=== PATIENT | male | born 1950 | race Two or more races ===

== ENCOUNTER → 2018-05-06 | Outpatient (REF) | payer MEDICARE ==
[2018-05-06 13:03] LABS: HEMATOCRIT 45.2 % (42.0-52.0); HEMOGLOBIN 16.2 g/dl (13.5-17.5); MEAN CORPUSCULAR HEMOGLOBIN 32.1 pg (27.0-33.0); MEAN CORPUSCULAR HGB CONC 35.8 g/dl (32.0-36.5); MEAN CORPUSCULAR VOLUME 89.5 fl (80.0-96.0); PLATELET COUNT, AUTOMATED 155 10^3/uL (150-450); RED BLOOD COUNT 5.05 10^6/uL (4.30-6.10); RED CELL DISTRIBUTION WIDTH 12.6 % (11.5-14.5); WHITE BLOOD COUNT 4.1 10^3/uL (4.0-10.0)
[2018-05-06 13:13] LABS: ALBUMIN 4.6 GM/DL (3.2-5.2); ALKALINE PHOSPHATASE 100 U/L (45-117); ALT/SGPT 46 U/L (12-78); ANION GAP 7 MEQ/L (8-16); AST/SGOT 33 U/L (7-37); BILIRUBIN,TOTAL 0.8 MG/DL (0.2-1.0); BLOOD UREA NITROGEN 26 MG/DL (7-18); CALCIUM LEVEL 9.4 MG/DL (8.8-10.2); CARBON DIOXIDE LEVEL 26 MEQ/L (21-32); CHLORIDE LEVEL 105 MEQ/L (98-107); CHOLESTEROL LEVEL 190 MG/DL (<200); CHOLESTEROL RISK RATIO 4.871 (<5); CREATININE FOR GFR 1.17 MG/DL (0.70-1.30); GLOMERULAR FILTRATION RATE > 60.0 (>49); GLUCOSE, FASTING 94 MG/DL (70-100); HDL CHOLESTEROL 39 MG/DL (>40); LDL CHOLESTEROL 116 MG/DL (<100); NON-HDL-C 151 MG/DL; PSA SCREENING 2.8 NG/ML (< 4.0); SODIUM LEVEL 138 MEQ/L (136-145); TOTAL PROTEIN 6.9 GM/DL (6.4-8.2); TRIGLYCERIDES LEVEL 176 MG/DL (<150)
== END ==
LOC: M SFHCADAM 09:59
DX: Z13.0 Encounter for screening for diseases of the blood and blood-forming organs and certain disorders involving the immune mechanism (principal); Z13.220 Encounter for screening for lipoid disorders; Z12.5 Encounter for screening for malignant neoplasm of prostate; Z23 Encounter for immunization
CPT/HCPCS: 80053

== ENCOUNTER → 2019-05-20 | Outpatient (REF) | payer MEDICARE ==
[2019-05-20 20:02] LABS: BLOOD UREA NITROGEN 20 MG/DL (7-18); CARBON DIOXIDE LEVEL 23 MEQ/L (21-32); CHLORIDE LEVEL 108 MEQ/L (98-107); CREATININE FOR GFR 1.22 MG/DL (0.70-1.30); GLOMERULAR FILTRATION RATE > 60.0 (>49); GLUCOSE, FASTING 80 MG/DL (70-100); SODIUM LEVEL 140 MEQ/L (136-145)
[2019-05-20 20:03] LABS: ALBUMIN 4.7 GM/DL (3.2-5.2); ALT/SGPT 47 U/L (12-78); BILIRUBIN,TOTAL 0.8 MG/DL (0.2-1.0); CALCIUM LEVEL 9.3 MG/DL (8.8-10.2); CHOLESTEROL LEVEL 200 MG/DL (<200); CHOLESTEROL RISK RATIO 5.263 (<5); HDL CHOLESTEROL 38 MG/DL (>40); LDL CHOLESTEROL 121.8 MG/DL (<100); NON-HDL-C 162 MG/DL; TOTAL PROTEIN 7.2 GM/DL (6.4-8.2); TRIGLYCERIDES LEVEL 201 MG/DL (<150)
== END ==
LOC: M SFHCADAM 11:35
PROVIDERS: ATTEND Family Medicine
DX: E78.49 Other hyperlipidemia (principal); Z12.5 Encounter for screening for malignant neoplasm of prostate; Z23 Encounter for immunization
CPT/HCPCS: 80053; 80061; 90682; G0008; G0103; G0463

== ENCOUNTER → 2020-08-03 | Outpatient (REF) | payer MEDICARE ==
[~2020-08-03] MED LIST: AMOX875T PO; C 50TAB PO; CALCTAB15 PO; COQ1100C5 PO; GLUCTAB6 PO; VITMTA PO
[2020-08-03 19:22] LABS: CALCIUM LEVEL 13.8 MG/DL (8.8-10.2); CREATININE FOR GFR 3.91 MG/DL (0.70-1.30); GLOMERULAR FILTRATION RATE 16.4 (>49); POTASSIUM SERUM 4.8 MEQ/L (3.5-5.1)
[2020-08-03 21:32] LABS: HEMOGLOBIN A1c 6.2 %
== END ==
LOC: M SFHCADAM 15:16
PROVIDERS: ATTEND Family Medicine
DX: R63.1 Polydipsia (principal)

== ENCOUNTER → 2020-08-03 | Outpatient (CLI) | payer MEDICARE ==
--- NOTE | 2020-08-03 17:19 | REP ---
INDICATION: RIGHT HIP PAIN. COMPARISON: None. TECHNIQUE: AP and frogleg views of the right hip. FINDINGS: There are numerous punched-out lytic lesions throughout the visualized skeleton involving the proximal femur, right pubis, right superior pubic ramus, and right iliac bone. This is compatible with skeletal metastatic disease, possibly multiple myeloma. The largest lesion is in the superior pubic ramus on the right where there is 5.7 cm area of bone destruction. There is a 2.2 cm lesion in the femoral head. There is the suggestion of a 2.8 cm lesion in the right iliac bone adjacent to the inferior aspect of the SI joint. The the relatively large lesion in the superior pubic ramus is adjacent the acetabulum and this raises the question of risk for pathologic fracture. IMPRESSION: Multiple lytic destructive lesions, multiple myeloma versus is widespread bony metastatic disease. Large lesion near the acetabulum on the right raises the issue of pathologic fracture risk. <Electronically signed by Daquan Chamberlain > 08/03/20 [id number]
== END ==
LOC: M ADAMS 15:25
PROVIDERS: ATTEND Family Medicine
DX: M89.8X8 Other specified disorders of bone, other site (principal); M25.551 Pain in right hip

== ENCOUNTER 2020-08-04 10:18 | Inpatient (IN) | payer MEDICARE ==
[~2020-08-04] VITALS: Ht 157.5 cm; Wt 79.5 kg
--- OUTSIDE RECORDS SUMMARY | 2020-08-04 12:00 | CCD ---
Author Author [facility] Organization [facility] Address Unknown Phone Unavailable Care Team Providers Care Joist Setter Name Role Phone Weeks, W Riccardo RPA-C Unavailable Unavailable Weeks, W Riccardo RPA-C Unavailable Unavailable Weeks, W Riccardo RPA-C Unavailable Unavailable Weeks, W Riccardo RPA-C Unavailable Unavailable Weeks, W Riccardo RPA-C Unavailable Unavailable Weeks, W Riccardo RPA-C Unavailable Unavailable Weeks, W Riccardo RPA-C Unavailable Unavailable Weeks, W Riccardo RPA-C Unavailable Unavailable Weeks, W Riccardo RPA-C Unavailable Unavailable Weeks, W Riccardo RPA-C Unavailable Unavailable Weeks, W Riccardo RPA-C Unavailable Unavailable Weeks, W Riccardo RPA-C Unavailable Unavailable Weeks, W Riccardo RPA-C Unavailable Unavailable Weeks, W Riccardo RPA-C Unavailable Unavailable Weeks, W Riccardo RPA-C Unavailable Unavailable Weeks, W Riccardo RPA-C Unavailable Unavailable Re-disclosure Warning The records that you are about to access may contain information from federally-assisted alcohol or drug abuse programs. If such information is present, then the following federally mandated warning applies: This information has been disclosed to you from records protected by federal confidentiality rules (42 CFR part 2). The federal rules prohibit you from making any further disclosure of this information unless further disclosure is expressly permitted by the written consent of the person to whom it pertains or as otherwise permitted by 42 CFR part 2. A general authorization for the release of medical or other information is NOT sufficient for this purpose. The Federal rules restrict any use of the information to criminally investigate or prosecute any alcohol or drug abuse patient.The records that you are about to access may contain highly sensitive health information, the redisclosure of which is protected by Article 27-F of the [facility] Public Health law. If you continue you may have access to information: Regarding HIV / AIDS; Provided by facilities licensed or operated by the [facility] Office of Mental Health; or Provided by the [facility] Office for People With Developmental Disabilities. If such information is present, then the following [facility] mandated warning applies: This information has been disclosed to you from confidential records which are protected by state law. State law prohibits you from making any further disclosure of this information without the specific written consent of the person to whom it pertains, or as otherwise permitted by law. Any unauthorized further disclosure in violation of state law may result in a fine or snf sentence or both. A general authorization for the release of medical or other information is NOT sufficient authorization for further disc losure. Encounters Encounter Providers Location Date Indications Data Source(s ) Office Visit, Est Pt., Level 3 FC [address] [place] [address] 05/18/2020 12:00:00 AM EST eCW1 ([facility]) [facility] [address] [facility] [address] 04/15/2020 12:00:00 AM EST eCW1 (Critical access hospital) Outpatient Attender: Riccardo FORREST 08:16:00 AM EST - 08/19/2019 03:08:00 PM [facility] Patient discharged. Emergency Attender: Riccardo FORREST 11:20:00 AM EST - 08/02/2019 11:27:00 AM [facility] Patient discharged. Immunizations Vaccine Date Status Description Data Source(s) COVID-19 VACCINE, MRNA-1273, LNP-S (MODERNA)/PF 07/18/2020 1 2:00:00 AM EST completed [facility] influenza, recombinant, quadrIvalent,injectable, prese rvative free 05/18/2020 04:29:00 PM EST completed eCW1 ([facility]) Medications Medication Brand Name Start Date Product Form Dose Route Admi nistrative Instructions Pharmacy Instructions Status Indications Reaction Description Data Source(s) 17.5-3.13-1.6 gram 08/24/2019 12:00:00 AM EDT recon soln 354 TAKE DIRECTED PER 'S BOWEL PREP INSTRUCTIONS TAKE DIRECTED PER 'S BOWEL PREP INSTRUCTIONS SOLD: 08/24/2019 Juaquin Bourne s Suprep Bowel Prep Kit Suprep Bowel Prep Kit 06/19/2019 12:00:00 AM EST active [facility] (Health system, ) Bisacodyl 5 MG Delayed Release Oral Tablet [Dulcolax] Dulcol ax 06/19/2019 12:00:00 AM EST ORAL active M [facility]ENT ([facility], ) Insurance Providers Payer name Policy type / Coverage type Policy ID Covered alliance party ID Covered alliance party's relationship to torres Policy Torres Plan Information MEDICARE COMPLETE [id number] SP [id number] MEDICARE COMPLETE [id number] SP [id number] MEDICARE COMPLETE [id number] SP [id number] UNITED [employer] MEDICARE [id number] S [id number] UNITED HE[employer]CARE MEDICARE [id number] S [id number] MEDICARE COMPLETE [id number] SP [id number] ANSI-Medicare Part B [id number] Problems, Conditions, and Diagnoses Code Display Name Description Problem Type Effective Dates Data Source(s) S43.61XD Sprain of right sternoclavicular joint, subsequent encounter SPRAIN OF RIGHT STERNOCLAVICULAR JOINT, SUBSEQUENT Diagnosis 08/03/2019 10:50:00 AM [facility] M25.511 Pain in right shoulder PAIN IN RIGHT SHOULDER Diagnosi s 08/03/2019 10:50:00 AM [facility] Y92.828 Other [facility] area as the place of oc currence of the external cause [facility] Diagnosis 08/02/2019 11:20:00 AM [facility] W01.0XXA Fall on same level from slip ping, tripping and stumbling without subsequent striking against object, initial encounter FALL SAME LEV FROM SLIP/TRIP W/O STRIKE AGAINST OB Diagnosis 08/02/2019 11:20:00 AM [facility] Y93.01 Activity, walking, marching and hiking A CTIVITY, WALKING, MARCHING AND HIKING Diagnosis 08/02/2019 11:20:00 AM [facility] l Y99.8 Other external cause status OTHER EXTERNAL CAUSE STATU S Diagnosis 08/02/2019 11:20:00 AM [facility] S43.61XA Sprain of right sternoclavicular joint, initial encounter SPRAIN OF RIGHT STERNOCLAVICULAR JOINT, INITIAL EN Diagnosis 08/02/2019 11:20:00 AM [facility] S49.91XA Unspecified injury of right shoulder and upper arm, initial encounter UNSP INJURY OF RIGHT SHOULDER AND UPPER ARM, INIT ENCNTR Diagnosis 08/02/2019 11:20:00 AM [facility] Surgeries/Procedures Procedure Description Date Indications Data Source(s) Immunization: Flublok Quadrivalent (18 years & older) 0.5mL IM (Influenza) 05/18/2020 12:00:00 AM EST eCW1 ([facility]) Results ID Date Data Source [id number] 08/02/2019 12:08:00 PM [facility] l Patient: XAVIER RATLIFF Lisy R [facility]VisitID: [id number] [place] [address] [phone], MRegistration Date/Time: 08/02/2019 09:48 Weight:92 kg (S). Height/Length:70 inches (S). BMI:29.1 FAMILY HISTORYNo significant family medical history. (Electronically signed by Riccardo Weeks PA 08/02/2019 11:39) Name Value Range Interpretation Code Description Data Karlee rce(s) Supporting Document(s) ID Date Data Source [id number] 08/02/2019 10:50:00 AM [facility] DATE OF EXAMINATION: 08/02/2019 10:09 EST TECHNIQUE: 2 views of the right clavicle were obtained. HISTORY: Fall There is no acute fracture or dislocation. There is moderate narrowing of theacromioclavicular joint with associated osteophyte formation. IMPRESSION: There is no acute fracture or dislocation.. Electronically signed in PS360 by: Lux Segura M.D. 08/02/2019 10:45 EST Name Value Range Interpretation Code Description Data Karlee rce(s) Supporting Document(s) Procedure Social History Code Duration Value Status Description Data Source(s ) Smoking 05/18/2020 12:00:00 AM EST Never Smoker completed Never S moker eCW1 ([facility]) Vital Signs ID Date Data Source UNK Name Value Range Interpretation Code Description Data Source(s) Diastolic blood pressure 76 mm[Hg] 76 mm[Hg] eCW1 ([facility]) Systolic blood pressure 138 mm[Hg] 138 mm[Hg] e CW1 ([facility]) Body temperature 98.0 [degF] 98.0 [degF] eCW1 ( [facility]) Respiratory rate 18 /min 18 /min eCW1 ([facility]) Heart rate 89 /min 89 /min eCW1 ([facility]) Body mass index (BMI) [Ratio] 27.40 kg/m2 27.40 kg/m2 eCW1 ([facility]) Body height [in_i] eCW1 ([facility]) Body weight 191 [lb_av] 191 [lb_av] eCW1 ([facility]) Body weight 92.988 kg 92.988 kg [facility] ([facility] ) Body mass index (BMI) [Ratio] 29.4 kg/m2 29.4 k g/m2 [facility] ([facility]) Body weight 205.00 [lb_av] 205.00 [lb_av] MEDEN T ([facility], ) Body height 70 [in_i] 70 [in_i] [facility] ([facility], ) 5'10" Diastolic blood pressure 84 mm[Hg] 84 mm[Hg] [facility] ([facility], ) Systolic blood pressure 144 mm[Hg] 144 mm[Hg] Rogelio ALONSO ([facility], )
--- OUTSIDE RECORDS SUMMARY | 2020-08-04 12:00 | CCD ---
Author Author [facility] Organization [facility] Address Unknown Phone Unavailable Care Team Providers Care Medical Van Driver Name Role Phone Reglaoren Eliazar Unavailable PROBLEMS Type Condition ICD9-CM Code [id number] Code Onset Dates Condition S tatus SNOMED Code Notes Problem Medicare annual wellness visit, subsequent Z00.00 Active [id number] Problem Other hyperlipidemia E78.49 Active [id number] ALLERGIES No Known Allergies ENCOUNTERS from 1950 to 2020-06-24 Encounter Location Date Provider Diagnosis [facility] [address] [place] [address] May, Nimesh Bach Medicare annual wellness visit, subsequent Z00.00 ; Other hyperlipidemia E78.49 ; Encounter for immunization Z23 ; Screening for colon cancer Z12.11 and Screening for prostate cancer Z12.5 IMMUNIZATIONS Vaccine Route Administration Date Status Influenza (18 yrs & older) Flublok IM Intramuscular May 18, 2020 Administered Influenza (18 yrs & older) Flublok IM Intramuscular May 20, 2019 Administered Influenza (18 yrs & older) Flublok IM Intramuscular May 06, 2018 Administered Influenza (High Dose 65 & up) IM Intramuscular May 07, 2017 A dministered Pneumococcal Adult 0.5mL (Pneumovax 23) IM Intramuscular May 06, 2018 Administered Pneumococcal 0.5mL (Prevnar 13) IM Intramuscular May 07, 2017 Administered SOCIAL HISTORY Tobacco Use: Social History Observation Description Date Details (start date - stop date) Never Smoker Sex Assigned At : Social History Observation Description Sex Assigned At Unknown Audit Question Answer Notes Total Score: 3 Interpretation: Alcohol Education Sexual Hx: Question Answer Notes Had sex in the last 12 months (vaginal, oral, or anal)? Yes Have you ever had an STD? No with Women only Drug and Alcohol Question Answer Notes Total Score: 0 Interpretation: No problems reported Alcohol Screening: Question Answer Notes Did you have a drink containing alcohol in the past year? Ye s Points 4 Interpretation Positive How often did you have six or more drinks on one occas ion in the past year? Less than monthly (1 point) How many drinks did you have on a typica l day when you were drinking in the past year? 1 or 2 (0 points) How often did you have a drink containing alcohol in t he past year? Two to three times per week (3 points) BMI Care Goal Follow-Up Question Answer Notes Above Normal BMI Follow-Up Lifestyle education regarding t Tobacco Use: Question Answer Notes Are you a: never smoker REASON FOR REFERRAL No Information VITAL SIGNS Weight 191 lbs May, Height 5'10" in May, BMI 27.40 kg/m2 May, Heart Rate 89 /min May, Respiratory Rate 18 /min May, Temperature 98.0 degrees Fahrenheit May, Oximetry 97 May, Blood pressure systolic 138 mm Hg May, Blood pressure diastolic 76 mm Hg May, MEDICATIONS No Known Medications PROCEDURES from 1950 to 2020-06-24 Procedure Date Ordered Result Body Site Immunization: Flublok Quadrivalent (18 years & older) 0.5mL IM (Influenza) 2020-05-18 N/A RESULTS No Results REASON FOR VISIT 1 year MEDICAL (GENERAL) HISTORY Type Description Date Medical History mild dyslipidemia (low HDL) Medical History declines colonoscopy Surgical History (declines colorectal cancer screening) Goals Section No Information Health Concerns No Information MEDICAL EQUIPMENT No Information MENTAL STATUS No Information FUNCTIONAL STATUS No Information ASSESSMENTS Encounter Date Diagnosis Assessment Notes Treatment Notes Treatm ent Clinical Notes May, Medicare annual wellness visit, subsequent (ICD- 10 - Z00.00) age appropriate anticipatory guidance given, per USPSTF recommendations; immunizations up to date. discussed plans for implementing improvement in identified areas, again we discussed Shingrix, advised that pt receive the two- shot series, benefits and SE reviewed. Advised obtain at participating pharmacy May, Other hyperlipidemia (ICD-10 - E78.49) declines statin tx May, Encounter for immunization (ICD-10 - Z23) May, Screening for colon cancer (ICD-10 - Z12.11) agrees to consider a colonoscopy in the Spring. Had a colo scheduled in September, cancelled due to COVID, and when contacted in Mar they decided to push into 2020May, Screening for prostate cancer (ICD-10 - Z12.5) PLAN OF TREATMENT Treatment Notes Assessment Notes Clinical Notes Medicare annual wellness visit, subsequent age appropriate anticipatory guidance given, per USPSTF recommendations; immunizations up to date. discussed plans for implementing improvement in identified areas, again we discussed Shingrix, advised that pt receive the two-shot series, benefits and SE reviewed. 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 Had a colo scheduled in September, cancelled due to COVID, and when contacted in Mar they decided to push into 2020 Future Test Test Name Order Date Comprehensive Metabolic Profile (CMP) [id number] LIPID PANEL (CARDIAC RISK) [id number] PSA SCREENING [id number] Next Appt Details 1 Year Reason: Insurance Providers Payer Name Payer Address Payer Phone Insured Name Patient Relati onship to Insured Coverage Start Date Coverage End Date MEDICARE COMPLETE [facility] [address] [address] [facility] [id number] XAVIER PADGETT self
[2020-08-04] MEDS ORDERED: ACETAMINOPHEN TAB 650MG DOSE (2X325MG) PO PRN (12:40)
[2020-08-04 13:12] LABS: HEMATOCRIT 29.7 % (42.0-52.0); HEMOGLOBIN 10.1 g/dl (13.5-17.5); MEAN CORPUSCULAR HEMOGLOBIN 31.5 pg (27.0-33.0); MEAN CORPUSCULAR VOLUME 92.5 fl (80.0-96.0); PLATELET COUNT, AUTOMATED 106 10^3/uL (150-450); RED BLOOD COUNT 3.21 10^6/uL (4.30-6.10)
[2020-08-04 13:37] LABS: ALBUMIN 4.2 GM/DL (3.2-5.2); BILIRUBIN,TOTAL 0.5 MG/DL (0.2-1.0); CALCIUM LEVEL 13.1 MG/DL (8.8-10.2); CREATININE FOR GFR 3.93 MG/DL (0.70-1.30); GLOMERULAR FILTRATION RATE 16.3 (>49); POTASSIUM SERUM 4.3 MEQ/L (3.5-5.1); TOTAL PROTEIN 6.8 GM/DL (6.4-8.2)
[2020-08-04 13:45] LABS: PTH INTACT 19.7 PG/ML (18.5-88.0)
[2020-08-04] MEDS: HEPARIN SOD (PORCINE) 5000UNITS/ML 1ML VIAL/SYRINGE SC SCH ×2 (13:46→21:42)
[2020-08-04] MEDS: NS 1,000 ML IV SCH ×2 (13:46→21:47)
--- NOTE | 2020-08-04 13:50 | HPEPDOC ---
[facility] Medical History & Physical Date of Admission Aug 04, 2020 Date of Service: Aug 04, 2020 Attending Physician: Vani Montes MD History and Physical CHIEF COMPLAINT: lethargy, right hip pain HISTORY OF PRESENT ILLNESS: The patient is a 70-year-old male with past medical history of hyperlipidemia and trauma to the right hip 04/2020 who presented direct admission for hypercalcemia, right hip lytic lesion on x-ray, acute kidney injury. The patient was sent in from his primary care office on 08/04/2020 for abnormal labs. According to the primary care doctor and the patient, at the end of April 2020 he had fallen on a rock pile and injured his right hip. The patient states initially he did not have pain but over time the pain gradually developed. He's been having increased right hip pain, 10/10 with activity only, not present with rest. He states the pain is localized mostly in the right hip but can extend to above the right knee joint and a sharp most times. He is also complained of weight loss of approximately 1114 pounds since 05/2020, unintentional. He has not been feeling well for 1 month and has felt lethargic, had polyuria and excessive thirst. He denies sleep disturbance, shortness of breath, chest pain, nausea, vomiting, diarrhea, recent illnesses, fevers, chills, abdominal pain, dysuria, hematuria, extremity swelling. He also his primary care provider approximately 4 days ago and on 08/03/2020 they were able to have him come in to be seen. At that time labs were drawn and the patient was sent for a right hip x-ray. R hip XR: Multiple lytic destructive lesions, multiple myeloma versus is widespread bony metastatic disease. Also shows large lesion near the acetabulum on the right raises the issue of pathologic fracture risk. Labs returned showing elevated calcium at 13.8, Cr 3.91- no prior issues with calcium or Cr on labs in past. Patient was sent to hospital for direct admission for further workup of right hip pain r/o neoplastic disease, hypercalcemia, acute kidney injury. REVIEW OF SYSTEMS: Neg except for what is mentioned above PAST MEDICAL HISTORY: HLD Trauma to R hip s/p fall on 04/2020 PAST SURGICAL HISTORY: None FAMILY HISTORY: Father: Mother: SOCIAL HISTORY: Denies smoking, alcohol or drug use. Lives with his locally. Very active at baseline. PCP- Dr. Shaheed Maciel ALLERGIES: Please see below. HOME MEDICATIONS: Please see below. PHYSICAL EXAMINATION: VS: Please see below CONSTITUTIONAL: No acute distress, resting comfortably, AAO x 3 EYES: PERRLA, EOM intact HENT, MOUTH: Normocephalic, atraumatic, moist mucous membranes, NECK: SUPPLE, no JVD, no lymphadenopathy, no carotid bruit CV: Regular rate and rhythm, S1S2 normal, no murmurs/rubs/gallops RESPIRATORY: Clear to auscultation bilaterally, no rales/rhonchi/wheezes GI: BS positive in 4 quadrants, soft, nontender, nondistended, no rebound or guarding, no organomegaly : Deferred MUSCULOSKELETAL: Normal ROM. No cyanosis, clubbing, swelling, joint deformity, extremity edema INTEGUMENTARY: Intact, no rashes, no lesions, no erythema NEUROLOGIC: Cranial Nerves II-XII are intact, no focal deficits PSYCHIATRIC: Mood and affect are normal LABORATORY DATA: Please see below IMAGING: R hip XR: Multiple lytic destructive lesions, multiple myeloma versus is widespread bony metastatic disease. Large lesion near the acetabulum on the right raises the issue of pathologic fracture risk. ASSESSMENT: 70-year-old male with past medical history of hyperlipidemia and trauma to the right hip 04/2020 admitted for further workup of right hip pain r/o neoplastic disease, hypercalcemia, acute kidney injury. PLAN: Right hip pain 2/2 to multiple lytic destructive lesions, r/o neoplastic process -Pain of right hip s/p trauma 04/2020, unintentional wt loss, hypercalcemia, KIMBERLY -Hip XR above -Discussed case with Heme/onc (Dr. Gleason) and radiation oncology (Dr. Stafford), both of which are consulted -F/u MM workup (SPEP, UPEP, B2 microglobulin, etc), CT chest, abd/pelvis, head to start -Pain control Hypercalcemia, acute possibly 2/2 to lytic process (multiple myeloma versus is widespread bony metastatic disease) -F/u ionized calcium, PTH -IVFs at 125 cc/hr -Nephrology following Acute kidney injury likely 2/2 to above -Cr 3.91, baseline is wnl -F/u UA, other labs above -Daily CMP -C/w NS at 125 cc/hr -Nephrology consulted Prediabetes -HbA1c 6.2 -BS wnl this AM -Will follow FS AC, holding ISS for now -Consistent carb diet Hx of HLD -F/u lipid panel -Not currently on med DVT px -Heparin SC DISPOSITION: Admitted as acute inpatient. Radiation oncology, heme/onc and nephrology consulted to see today. Laboratory Data Labs 24H Laboratory Tests 2 08/04/20 12:15: Coronavirus (COVID-19)(PCR) NEGATIVE 08/04/20 12:59: Nucleated Red Blood Cells % (auto) 0.0, Whole Blood Ionized Calcium 6.5*H CBC/BMP Laboratory Tests 08/04/20 12:59 Allergies Coded Allergies: No Known Allergies (Unverified , 08/04/20) A-FIB/CHADSVASC A-FIB History Current/History of A-Fib/PAF?: No Current PO Anticoag Therapy: No Age/Risk Factor Scoring CHADSVASC: CHADSVASC Response (Comments) Value Age Risk Factor Age 65-74 years old 1 Gender Risk Factor Male 0 Hx of CHF No 0 Hx of HTN No 0 Hx of Stroke/TIA/or VTE No 0 Hx of Diabetes No 0 Hx of Vascular Disease No 0 Total 1 Treatment Treatment ordered: Other Other anticoagulant ordered: heparin Vani Montes MD Aug 04, 2020 13:50
[2020-08-04 13:51] VITALS: BP 165/90
--- NOTE | 2020-08-04 14:40 | REPVR ---
PROCEDURE INFORMATION: Exam: CT Head Without Contrast Exam date and time: 08/04/2020 1:55 PM Age: 70 years old Clinical indication: Other: Lytic lesions of right hip, R/O metastatic disease/ mass TECHNIQUE: Imaging protocol: Computed tomography of the head without contrast. Radiation optimization: All CT scans at this facility use at least one of these dose optimization techniques: automated exposure control; mA and/or kV adjustment per patient size (includes targeted exams where dose is matched to clinical indication); or iterative reconstruction. COMPARISON: No relevant prior studies available. FINDINGS: Brain: The brain demonstrates diffuse volume loss. There is white matter hypodensity most consistent with chronic small vessel ischemic change. No visible evolving territorial infarct. No hemorrhage. Cerebral ventricles: The ventricles are mildly enlarged in keeping with volume loss. Bones/joints: No acute calvarial fracture seen. No frankly suspicious lytic or blastic lesions identified. Small lucent lesion in the condylar head of the left mandible may reflect subchondral cystic change related to arthritis. Paranasal sinuses: Visualized sinuses are unremarkable. No fluid levels. Mastoid air cells: Visualized mastoid air cells are well aerated. Soft tissues: Unremarkable. IMPRESSION: No evidence of intracranial metastatic disease. Electronically signed by: Anna Marie Ham On 08/04/2020 14:40:21 PM
--- NOTE | 2020-08-04 14:54 | REP ---
INDICATION: lytic lesions of right hip, r/o metastatic disease/ mass. COMPARISON: None. TECHNIQUE: Noncontrast images of the chest with coronal and sagittal reconstructions provided FINDINGS: The lung bolivar are adequately inflated. Some linear atelectatic change right lower lobe and subpleural curvilinear fibroatelectatic change both lower lung zones. Some minor dependent atelectatic changes posteriorly in the deep sulci. No pleural effusion. No pleural plaque or calcified plaque, acute infiltrate or pneumothorax. Heart size not enlarged and there is no pericardial thickening or effusion. The aorta is without aneurysm. There is no pathologic sized mediastinal or hilar adenopathy. Small axillary nodes are seen, not felt to be pathologic sized. No mass in the supraclavicular region. The upper abdominal contents will be discussed in the CT abdomen report this date. The bone windows show a pattern of diffuse metastatic disease. This is predominantly lytic in the medial head of the right clavicle, smaller in the left clavicle. There is a lytic expansile lesion of the right posterolateral 7th rib, the posterolateral left 9th rib and with a healing fractures, pathologic type in the adjacent 7th through 10th left posterolateral ribs. All the ribs have some lytic destructive change. The sternum has a moth-eaten appearance and there is a larger expansile lytic lesion in the right side of the manubrium destroying superficial and deep cortex. There is a grade 2 compression deformity of the T4 vertebral body with some sclerotic appearance suggesting compression about the lytic lesions in the posterior aspect of that vertebral body. Larger lytic lesion in the posterior aspect of T5 without compression deformity. Left anterior lytic lesion in T9 without compression deformity and posteriorly in T12 extending into the right pedicle. Some lytic moth eaten appearance for most of these vertebral bodies. The right proximal humerus shows a lytic lesion causing endosteal scalloping of the anterior and posterior cortex and many other small cortical and subcortical lytic lesions. IMPRESSION: 1. Diffuse metastatic bone disease with lytic lesions including some expansile lesions in manubrium, right clavicle and involving all of the ribs, vertebral bodies, sternum and the proximal right humerus. The scapulae also show small lytic lesions. Expansile destructive lesions in ribs and pathologic fractures 7th through 10th posterolateral left ribs. 2. Lung bolivar show some changes of COPD, subsegmental atelectatic change right lower lobe and some dependent atelectasis deep sulci. No parenchymal lung mass, mediastinal mass or adenopathy. <Electronically signed by Garfield Barton > 08/04/20 [id number]
--- NOTE | 2020-08-04 15:09 | REP ---
INDICATION: lytic lesions of right hip, r/o metastatic disease/ mass. COMPARISON: Right hip series 08/03/2020 TECHNIQUE: Noncontrast images abdomen and pelvis with coronal and sagittal reconstructions. FINDINGS: CT abdomen: There is no hepatosplenomegaly, focal hepatic or splenic lesion, intrahepatic biliary dilatation or ascites retained food in the stomach in a contracted gallbladder seen. No calcified gallstones or mass pancreas was grossly unremarkable. No mass, peripancreatic adenopathy or fluid collection. Adrenal glands without a mass kidneys show no stone, cyst, solid mass or hydronephrosis. No perinephric edema ureters show normal course to the bladder and are without stone or filling defect small bowel loops without dilatation. These are mostly fluid-filled. No air-fluid levels. The colon shows stool and gas scattered in its abdominal portion. There is no ascites. The aorta has calcifications but no aneurysm there is no periaortic, mesenteric or other retroperitoneal pathologic sized lymphadenopathy. There is no ventral abdominal wall hernia identified. CT pelvis: Bladder shows slight wall thickening. There is a prominent prostate gland indenting the bladder blade a send measuring at least 5.6 by 5 by 6.3 cm. No stones in the distal ureters or bladder. No pelvic or inguinal lymphadenopathy no pelvic or inguinal hernia. Mental fat slightly distends the upper portion of the right inguinal canal. Atherosclerotic calcifications are scattered in the iliac and femoral vessels. CT bone windows: Lower thoracic and lumbar vertebral bodies show lytic destructive lesion anterior superior aspect of the T9 involving the endplate and anterior cortex posterior right lateral T12, posterior and right lateral L1 and L5 posterior left lateral with lytic lesions destroying cortex. None of these are vertebral bodies show loss of height. There are smaller lytic lesions in all of the vertebral bodies and there is metastatic disease throughout the ribs. Sacrum shows lytic lesions abutting the SI joints with cortical disruption at the superior aspect of the right SI joint in the 1st sacral ala. Large lytic destructive lesion in the adjacent iliac bone which is seen on radiograph yesterday and other small lytic lesions throughout both iliac bones. There is a prominent soft tissue component to this lytic lesion extending medially and inferiorly. There is a lytic lesion in the anterior column of the right acetabulum destroying medial and articular cortex with a soft tissue mass growing into the hip joint and abutting the femoral head. Scattered small lucencies throughout the left iliac bone and acetabulum. The right hip show small lucencies in the femoral head, neck and intertrochanteric region representing metastatic disease with some in the left femoral neck and intertrochanteric region as well. There is a lytic lesion in the superior pubic ramus near the symphysis pubis. IMPRESSION: 1. Extensive lytic metastatic disease throughout the visualized bones with the largest in the right iliac bone and acetabulum on the right involving its anterior column. Expansile components and cortical destruction noted as described. 2. Multiple lytic lesions in the spine with some cortical disruption and destruction at the levels described there is no lumbar or lower thoracic compression deformity with some the lytic lesions may lead to compression fractures a ventrally. Most concern for T9 at T12 and L1 at the present time. 3. Smaller lytic metastatic lesions lesions throughout the remainder of the bones as described. 4. Enlarged prostate indenting bladder base and measuring 6.3 x 5.6 x 5 cm. 5. No ascites, intra-adenopathy upper abdominal solid organ mass, ascites or other significant finding in the abdomen and pelvic soft tissues. <Electronically signed by Garfield Barton > 08/04/20 [id number]
[2020-08-04 15:29] LABS: TOTAL PROTEIN 7.1 GM/DL (6.4-8.2)
[2020-08-04 15:32] LABS: CHOLESTEROL RISK RATIO 4.366 (<5)
--- NOTE | 2020-08-04 17:35 | RADONC.CN ---
Radiation Oncology Hx/Consult Radiation Oncology Consult Date of Service: Aug 04, 2020 Pt Identifier Peter Padgett is a 70 year old male with an unremarkable PMH, who presented to medical attention with recent onset right hip pain. He brought this to the attention of his PCP who ordered x-rays which revealed lytic bone lesions in the right acetabulum and iliac bone concerning for malignancy. He was admitted to the hospitalist service at [facility] for workup. We are consulted to assist with workup and comment on role for palliative RT. Diagnosis/Treatment History Oncologic History Patient reports he fell on his right hip while bear hunting in April 2020. The immediate pain subsided completely but in May 2020 he noted recrudescent and gradually worsening right hip pain along with 10 lb unintentional weight loss with preserved appetite. He brought this to his PCP's attention and on 08/03/20 he had an x-ray done showing lytic lesions. Basic labs also revealed acute kidney injury with Cr 3.91 and Ca 13.8. He was admitted for workup. 08/04/20 CT head FINDINGS: Brain: The brain demonstrates diffuse volume loss. There is white matter hypodensity most consistent with chronic small vessel ischemic change. No visible evolving territorial infarct. No hemorrhage. Cerebral ventricles: The ventricles are mildly enlarged in keeping with volume loss. Bones/joints: No acute calvarial fracture seen. No frankly suspicious lytic or blastic lesions identified. Small lucent lesion in the condylar head of the left mandible may reflect subchondral cystic change related to arthritis. Paranasal sinuses: Visualized sinuses are unremarkable. No fluid levels. Mastoid air cells: Visualized mastoid air cells are well aerated. Soft tissues: Unremarkable. IMPRESSION: No evidence of intracranial metastatic disease. CT chest IMPRESSION: 1. Diffuse metastatic bone disease with lytic lesions including some expansile lesions in manubrium, right clavicle and involving all of the ribs, vertebral bodies, sternum and the proximal right humerus. The scapulae also show small lytic lesions. Expansile destructive lesions in ribs and pathologic fractures 7th through 10th posterolateral left ribs. 2. Lung bolivar show some changes of COPD, subsegmental atelectatic change right lower lobe and some dependent atelectasis deep sulci. No parenchymal lung mass, mediastinal mass or adenopathy. CT abdomen pelvis IMPRESSION: 1. Extensive lytic metastatic disease throughout the visualized bones with the largest in the right iliac bone and acetabulum on the right involving its anterior column. Expansile components and cortical destruction noted as described. 2. Multiple lytic lesions in the spine with some cortical disruption and destruction at the levels described there is no lumbar or lower thoracic compression deformity with some the lytic lesions may lead to compression fractures a ventrally. Most concern for T9 at T12 and L1 at the present time. 3. Smaller lytic metastatic lesions lesions throughout the remainder of the bones as described. 4. Enlarged prostate indenting bladder base and measuring 6.3 x 5.6 x 5 cm. 5. No ascites, intra-adenopathy upper abdominal solid organ mass, ascites or other significant finding in the abdomen and pelvic soft tissues. Relevant labs: Item Value Date Time Prostate Specific Antigen Screen 2.8 NG/ML 05/06/18 1024 Prostate Specific Antigen Screen 2.82 NG/ML 05/20/19 1153 Interval History Peter reports he is feeling generally well aside from the right hip pain which he describes as aching, no radicular features. He does not take anything for it. He has no other foci of bony pain at this time. He reports he urinates without difficulty, moreover, he has been urinating quite frequently over the past few months, feels like he empties well, no dysuria or hematuria. No flank pain. Past Medical History: HLD Past Surgical History: None Family History: Non-contributory Social History: Non-smoker Does not drink Allergies / Meds Allergies: Coded Allergies: No Known Allergies (Unverified , 08/04/20) Review of Systems Constitutional: Reports: Fatigue, Weight Loss; Denies: Chills, Fever, Weakness Eyes: Denies: Pain HEENT: Denies: Head Aches Skin: Denies: Rash Pulmonary: Denies: Dyspnea, Cough Cardiovascular: Denies: Chest Pain, Palpitations Gastrointestinal: Denies: Nausea, Vomiting, Abdominal Pain, Constipation Genitourinary: Reports: Frequency; Denies: Dysuria, Incontinence, Hematuria, Retention Hematologic: Denies: Bruising, Bleeding Excessively Musculoskeletal: Reports: Leg pain; Denies: Neck pain, Shoulder pain, Back pain Neurological: Denies: Weakness, Numbness Psych: Reports: Mood Normal Vital Signs Vital Signs Date Time Temp Pulse Resp B/P (MAP) Pulse Ox O2 Delivery O2 Flow Rate FiO2 08/04/20 13:51 96.4 87 20 165/90 (115) 97 Room Air General Exam: Positive: Alert, Cooperative; Negative: No Acute Distress Eye Exam: Positive: PERRLA, EOMI ENT EXAM: Positive: Atraumatic Neck Exam: Positive: Supple Chest Exam: Positive: Clear to auscultation, Normal air movement Heart Exam: Positive: Rate Normal, Regular Rhythm Abdomen Exam: Positive: Soft Extremity Exam: Negative: Edema Skin Exam: Positive: Nl turgor and temperature Neuro Exam: Positive: Normal Speech, Cranial Nerves 3-12 NL Psych Exam: Positive: Mental status NL Diagnostic and Laboratory Diagnostic Review Radiologic images, relevant labs and pathology reports were personally reviewed and discussed with Mr. Padgett. Laboratory Tests 08/04/20 12:59 Laboratory Tests 08/04/20 12:15: Coronavirus (COVID-19)(PCR) NEGATIVE 08/04/20 12:59: White Blood Count 5.0, Red Blood Count 3.21L, Hemoglobin 10.1L, Hematocrit 29.7L, Mean Corpuscular Volume 92.5, Mean Corpuscular Hemoglobin 31.5, Mean Corpuscular Hemoglobin Concent 34.0, Red Cell Distribution Width 13.1, Platelet Count 106L, Nucleated Red Blood Cells % (auto) 0.0, Sodium Level 137, Potassium Level 4.3, Chloride Level 106, Carbon Dioxide Level 25, Anion Gap 6L, Blood Urea Nitrogen 43H, Creatinine 3.93H, Glomerular Filtration Rate 16.3L, Fasting Glucose 169H, Calcium Level 13.1H, Whole Blood Ionized Calcium 6.5*H, Total Bilirubin 0.5, Aspartate Amino Transf (AST/SGOT) 22, Alanine Aminotransferase (ALT/SGPT) 40, Alkaline Phosphatase 132H, Total Protein 6.8, Albumin 4.2, Albumin/Globulin Ratio 1.6, Parathyroid Hormone (Intact) 19.7 08/04/20 14:45: Total Protein (PEP) 7.1, Triglycerides Level 188H, Total Cholesterol 131, LDL Cholesterol 63, Non-HDL Cholesterol (LDL + VLDL) 101, Total HDL Cholesterol 30L, Cholesterol/HDL Ratio 4.366 08/04/20 14:53: Urine Color YELLOW, Urine Appearance CLEAR, Urine pH 7.0, Urine Specific [place] 1.013, Urine Protein 2+H, Urine Glucose (UA) NEGATIVE, Urine Ketones NEGATIVE, Urine Blood 1+H, Urine Nitrite NEGATIVE, Urine Bilirubin NEGATIVE, Urine Urobilinogen 0.2, Urine Leukocyte Esterase NEGATIVE, Urine WBC (Auto) 1, Urine RBC (Auto) 24H, Urine Hyaline Casts (Auto) 0, Urine Bacteria (Auto) NEGATIVE, Urine Squamous Epithelial Cells 0, Urine Sperm (Auto) Assessment and Plan Impression Mr. Padgett is a 70 year old male with an unremarkable PMH, who presented to medical attention with recent onset right hip pain. He brought this to the attention of his PCP who ordered x-rays which revealed lytic bone lesions in the right acetabulum and iliac bone concerning for malignancy. He was admitted to the hospitalist service at [facility] for workup. We are consulted to assist with workup and comment on role for palliative RT. Stage Workup incomplete Performance Status ECOG 1 Plan We had an extensive discussion with Mr. Padgett regarding possible diagnoses and available therapeutic options. On review of his imaging he has innumerable lytic lesions in the appendicular and axial skeleton, some of these have clear soft tissue component, taken altogether these are convincing for malignancy. The worst lesions are in the right hip and the ribs bilaterally. Fortunately there are no signs or symptoms of impending cord compression from the vertebral lesions, though pathologic fracture of several left sided ribs has already occurred, and the right acetabulum lesion is high risk for pathologic fracture. His laboratory studies reveal kidney injury and hypercalcemia as well as normocytic anemia and mild thrombocytopenia. He has all four classic clinical signs of multiple myeloma. Other leading considerations on the differential are rendered much less likely by the absence of visceral mass on CT scan, and in the case of prostate cancer history of normal screening PSA (most recently 2.82 on 05/20/19). He does have prostatomegaly on CT, but minimal obstructive symptoms, I did not perform MARIAH today, but if workup for MM stalls then PSA and MARIAH would be easily accomplished. In addition to the scans which have been completed, he has a full myeloma panel pending. If there is suggestion of paraprotein on SPEP then I defer to medical oncology regarding the proper setting for BM biopsy and tissue diagnosis. If the MM workup stalls a soft tissue biopsy could be completed to establish histology. In any event I recommend to the patient that we proceed with palliative RT to stabilize the right hip. I would give 30 Gy in 10 fractions. This process including simulation can start in the next 1-2 days while he is worked up inpatient, treatment can then continue as an outpatient. I will visit the patient again on 08/05/20 to review his workup further and solidify next steps for RT. Recommendations Continue MM workup as ordered Can pursue soft tissue v bone marrow biopsy contingent upon those labs Alternative malignancies less likely based on absence of visceral primary mass o n CT Will pursue palliative RT to the right hip in coming days Billing Statement Total time of [35] minutes was spent preparing for the visit [2], obtaining HPI [5], examining the patient [2], reviewing diagnostic tests [5], discussing management options [7], coordinating care [1], and writing this note [10]. SILVANA ALBERT MD Aug 04, 2020 17:35
--- NOTE | 2020-08-04 19:11 | CR.PDOC ---
General Date of Consultation: Aug 04, 2020 Referring Provider: Vani Montes MD Attending Physician: DIEGO RASMUSSEN MD Consultation REASON FOR CONSULTATION/CHIEF COMPLAINT: Extensive lytic lesion in bones highly suspicious for malignancy. HISTORY OF PRESENT ILLNESS: I had the pleasure of seeing Mr. Peter Padgett in consideration for scattered lytic lesion at over the skeleton. As you know Mr. Padgett is a 70-year-old white gentleman who lives in [place] and leading a retired life. He is on no prescription medicine and has been in good health. Recently in April 2020 while he was hunting he fell down on file of proximal and developed pain in the right hip. Pain got worse after a month and was seen by his family doctor. Patient has been having increasing weakness and weight loss since May 2020. He has been having increasing shortness of breath and occasional dry cough. He was seen by his family doctor on July and labs at that time revealed calcium level of 13.8 and creatinine level of 3.91. X-ray of the hip revealed multiple lytic destructive lesions. Patient was admitted directly to the hospital for hypercalcemia and acute kidney injury. He underwent CT of the chest abdomen and pelvis. CT of the chest revealed diffuse metastatic bone disease with lytic lesions including some expansile lesion in the manubrium right clavicle involving all the ribs, vertebral bodies, sternum and proximal right humerus. Scapulae also showed small lytic lesions lung field did not reveal any masses but some COPD was seen. CT of the abdomen and pelvis revealed extensive lytic metastatic disease throughout the visualized bone with the largest in the right iliac bone and acetabulum on the right involving its anterior column. There was expansile component and cortical destruction. Multiple lytic lesions were seen in the spine with some cortical disruption and destruction but no lumbar or lower thoracic compression deformity was seen area there was concern for compression T9, T12 and L1 area smaller limited lytic metastatic lesions seen throughout the bones. Prostate was enlarged at 6.3 x 5.6 x 5 cm. Patient is being hydrated at this moment. He has some dry cough although he claims that his dry cough is due to his mask which he wears. He has no cardiac symptoms. He has no bleeding issue. He does not have nausea vomiting or abdominal pain. He is not a diabetic or hypertensive. He is not on any home medicine except aspirin. ALLERGIES: Please see below. HOME MEDICATIONS: Please see below. PAST MEDICAL HISTORY: 1. Nonsignificant. 2. Has no history of any admission. PAST SURGICAL HISTORY: No surgical history FAMILY HISTORY: Father: Father of lung cancer Mother: Coronary artery disease Siblings: He is the only one and no sibling Children: 5 stepchildren Hereditary Diseases: None Unexpected deaths due to medical reasons: None SOCIAL HISTORY: Marital status lives with his . 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 HEENT: No complaint. CARDIOVASCULAR: Denies chest pain palpitations PND or orthopnea. RESPIRATORY: Mild cough. GENITOURINARY: No urinary complaint. MUSCULOSKELETAL: Pain in the right hip for last 2 months getting worse especially on walking. GASTROINTESTINAL: Feel nauseous no diarrhea. SKIN: No rash. NEUROLOGICAL: No history of loss of power in any part. No sensory or motor complaints. PSYCHIATRIC: Denies depression or anxiety. ENDOCRINE: Not a diabetic. HEMATOLOGIC/LYMPHATIC: None . ALLERGIC/IMMUNOLOGIC: No known drug allergies. PHYSICAL EXAMINATION: VITAL SIGNS: Please see below. GENERAL APPEARANCE: Upcoming gentleman in no acute distress. HEENT: WNL EOMI oral cavity clear without mucositis or thrush. RESPIRATORY: Lungs clear to auscultation percussion. CARDIOVASCULAR: RRR S1 and S2. ABDOMEN: Soft bowel sounds present no hepatosplenomegaly. EXTREMITIES: Normal daughter and deformity. NEUROLOGICAL: No focal neurologic deficit. PSYCHIATRIC: Sober and composed without any anxiety or depression. LABORATORY DATA: Please see below. ASSESSMENT/PLAN: 1. Mr. Padgett is a 70-year-old white gentleman who has been in excellent health until April 2020 when he fell down and developed pain in the right hip which got worse and eventually ended up to primary healthcare and investigation led to the diagnosis of lytic lesion in the right hip joint and hypercalcemia. Acute kidney injury. CT scan is showing extensive lytic lesions hypercalcemia and acute kidney injury. Multiple myeloma is on the top of the list although globulin is not very high and other carcinomas including prostate cancer should also be suspected. If serum protein electrophoresis and bone marrow results are normal we might have to do direct biopsy of one of the lytic lesion.. Patient serum protein electrophoresis and kappa and lambda light chains has been ordered and pending. We will order a bone marrow aspiration and biopsy which will be done tomorrow.. 2. Patient has acute renal injury due to hypercalcemia and is being seen by Dr. Marinelli. Discussed the case with Dr. Marinelli and Dr. Montes. Patient needs to have denosumab 120 mg subcutaneous to normalize calcium level.. 3. Patient has been seen by radiation oncology, and Dr. King and he plans to give radiation to the right hip starting tomorrow. Patient will be seen again once the results of above mentioned investigations are available for further decision making. Vital Signs/I&O Vital Signs Date Time Temp Pulse Resp B/P (MAP) Pulse Ox O2 Delivery O2 Flow Rate FiO2 08/04/20 13:51 96.4 87 20 165/90 (115) 97 Room Air Laboratory Data Labs 24H Laboratory Tests 2 08/04/20 12:15: Coronavirus (COVID-19)(PCR) NEGATIVE 08/04/20 12:59: Nucleated Red Blood Cells % (auto) 0.0, Anion Gap 6L, Glomerular Filtration Rate 16.3L, Calcium Level 13.1H, Whole Blood Ionized Calcium 6.5*H, Total Bilirubin 0.5, Aspartate Amino Transf (AST/SGOT) 22, Alanine Aminotransferase (ALT/SGPT) 40, Alkaline Phosphatase 132H, Total Protein 6.8, Albumin 4.2, Albumin/Globulin Ratio 1.6, Parathyroid Hormone (Intact) 19.7 08/04/20 14:45: Total Protein (PEP) 7.1, Triglycerides Level 188H, Total Cholesterol 131, LDL Cholesterol 63, Non-HDL Cholesterol (LDL + VLDL) 101, Total HDL Cholesterol 30L, Cholesterol/HDL Ratio 4.366 08/04/20 14:53: Urine Color YELLOW, Urine Appearance CLEAR, Urine pH 7.0, Urine Specific [place] 1.013, Urine Protein 2+H, Urine Glucose (UA) NEGATIVE, Urine Ketones NEGATIVE, Urine Blood 1+H, Urine Nitrite NEGATIVE, Urine Bilirubin NEGATIVE, Urine Urobilinogen 0.2, Urine Leukocyte Esterase NEGATIVE, Urine WBC (Auto) 1, Urine RBC (Auto) 24H, Urine Hyaline Casts (Auto) 0, Urine Bacteria (Auto) NEGATIVE, Urine Squamous Epithelial Cells 0, Urine Sperm (Auto) CBC/BMP Laboratory Tests 08/04/20 12:59 Allergies Coded Allergies: No Known Allergies (Unverified , 08/04/20) DIEGO RASMUSSEN MD Aug 04, 2020 19:11
[2020-08-04] MEDS ORDERED: DENOSUMAB (XGEVA) 120MG/1.7ML VIAL (J0897 PER 1MG) (FOR ONCOLOGY) SC ONE (21:00)
[2020-08-04] MEDS: CALCITONIN SALMON (MIACALCIN) 400INTERNATIONAL UNITS/2ML INJ (J0630) SQ SCH (21:40)
[2020-08-04] MEDS: traMADol 50 MG TAB PO PRN (21:42)
[2020-08-04] MEDS ORDERED: C 50TAB PO (21:57)
[2020-08-04] MEDS ORDERED: VITMTA PO (21:57)
[2020-08-04] MEDS ORDERED: COQ1100C5 PO (21:57)
[2020-08-04] MEDS ORDERED: GLUCTAB6 PO (21:58)
[2020-08-04] MEDS ORDERED: CALCTAB15 PO (21:58)
[2020-08-04 22:00] VITALS: BP 155/80
[2020-08-04] MEDS ORDERED: AMOX875T PO (22:00)
[2020-08-04] MEDS: BENZONATATE 100 MG CAP PO PRN (22:51)
[2020-08-05] MEDS: traMADol 50 MG TAB PO PRN ×2 (05:00→20:58)
[2020-08-05 06:00] VITALS: BP 130/69
[2020-08-05 06:30] LABS: HEMATOCRIT 26.7 % (42.0-52.0); HEMOGLOBIN 8.9 g/dl (13.5-17.5); MEAN CORPUSCULAR HEMOGLOBIN 31.3 pg (27.0-33.0); MEAN CORPUSCULAR HGB CONC 33.3 g/dl (32.0-36.5); RED BLOOD COUNT 2.84 10^6/uL (4.30-6.10); WHITE BLOOD COUNT 4.2 10^3/uL (4.0-10.0)
[2020-08-05 06:38] LABS: PLATELET COUNT, AUTOMATED 94 10^3/uL (150-450)
[2020-08-05 06:58] LABS: ALBUMIN 3.4 GM/DL (3.2-5.2); BILIRUBIN,TOTAL 0.3 MG/DL (0.2-1.0); CALCIUM LEVEL 11.3 MG/DL (8.8-10.2); CREATININE FOR GFR 3.7 MG/DL (0.70-1.30); GLOMERULAR FILTRATION RATE 17.4 (>49); POTASSIUM SERUM 4.2 MEQ/L (3.5-5.1); TOTAL PROTEIN 6.3 GM/DL (6.4-8.2)
[2020-08-05 07:02] LABS: PERCENT SATURATION 25.2 % (19.7-50.0)
--- NOTE | 2020-08-05 08:30 | RADENCPD ---
Date/Time of Encounter Date of Encounter: Aug 05, 2020 Time of Encounter: 08:25 Encounter Spoke with Peter this AM at bedside, notes his hip felt much better after pain medication yesterday evening. Discussed that we are still awaiting SPEP and other labs to return. Dr. Gleason is planning for BM biopsy. I recommend we move forward with RT planning today, I will give 30 Gy in 10 fractions to the right acetabulum and iliac lesions for pain relief and to mitigate the risk of fracture. He agreed, no significant acute side effects are expected except for mild fatigue, there is an ~10% of acute pain flare with RT, but this is generally transient and easily treated with decadron and/or pain medication. Treatment will start early next week and if he is discharged prior to starting, he can continue with us as an outpatient. Plan: Simulation today time SILVANA PATINO MD Aug 05, 2020 08:29
[2020-08-05] MEDS: HEPARIN SOD (PORCINE) 5000UNITS/ML 1ML VIAL/SYRINGE SC SCH ×2 (09:00→20:56)
--- NOTE | 2020-08-05 09:15 | CR ---
CONSULTATION DATE: 08/04/2020 REQUESTING PHYSICIAN: Vani Montes M.D. CONSULTING PHYSICIAN: Vasile Marinelli MD REASON FOR CONSULTATION: Management of acute renal failure and hypercalcemia. CHIEF COMPLAINT: Patient presented to the hospital with right hip pain and abnormal imaging. HISTORY OF PRESENT ILLNESS: Peter Padgett is a 70-year-old male with a past medical history of hyperlipidemia. No significant past medical history of renal disease. He was having progressive weakness, easily fatigability, generalized body aches and pains, and worsening right hip pain for the last two months. The pain was unbearable and was not responding to the pain medications. He presented to the primary care office where his labs and right hip imaging were done. Right hip x-ray showed multiple lytic lesions suspicious for metastatic disease versus multiple myeloma. He was also found to have acute renal failure on the labs with a creatinine of 3.9 and a calcium of 13.8. He was sent from the primary care office for direct admission. He was admitted under the hospitalist service. Nephrology service was called for further help in the management of this patient because he is in acute renal failure, has proteinuria on the labs, and has hypercalcemia with an ionized calcium level of 6.5. I saw and evaluated the patient at the bedside today. By the time I saw him, radiation oncology and hematology oncology had also seen the patient. He had gotten a CT scan of the chest, abdomen, pelvis, and head by the time I saw him, and those CT scans showed extensive lytic lesions, which are mentioned in the imaging below. The patient otherwise denies any fevers, chills, or rigors. PAST MEDICAL HISTORY: 1. Hyperlipidemia. 2. Trauma and right hip injury in 04/2020. PAST SURGICAL HISTORY: None. ALLERGIES: No known drug allergies. FAMILY HISTORY: No significant family history of end-stage renal disease requiring hemodialysis. SOCIAL HISTORY: The patient lives with his . He denies any smoking, illicit drug abuse, or alcohol abuse. REVIEW OF SYSTEMS: Constitutional: The patient reports feeling weak, tired, and fatigued. He denies any fevers or chills. Eyes: He denies any blurry vision or double vision. ENT: Denies any dysphagia or odynophagia. Cardiovascular: Denies any chest pain or palpitations. Respiratory: He does report shortness of breath on mild exertion. GI: He denies any nausea or vomiting. Genitourinary: He denies any dysuria or hematuria. Musculoskeletal: He reports generalized body aches and pains. Skin: He denies any rashes or ulcers. Hematologic/Oncologic: He denies any easy bleeding or bruising. Psychologic: He denies any depression or anxiety. Endocrine: He denies any hyperthyroidism, hypothyroidism, or diabetes. BOATS RENTER: He denies any strokes or seizures. All other review of systems is negative. PHYSICAL EXAMINATION: GENERAL: The patient is awake, alert, and oriented x3; laying in bed. VITAL SIGNS: Temperature is 96.4 degrees Fahrenheit, blood pressure 165/90, pulse 87, respiratory rate 20, saturating 97% on room air. HEAD/NECK: Extraocular muscles are intact. Pupils equally round and reactive to light. Conjunctivae is mildly pale. Mucous membranes are moist. Neck is supple. There is no JVD. CARDIOVASCULAR: S1, S2. Regular rate. No edema of the bilateral lower extremities. RESPIRATORY: Chest is clear to auscultation bilaterally. Bilateral equal air entry. No rales or rhonchi. ABDOMEN: Soft with positive bowel sounds and nontender. No organomegaly. MUSCULOSKELETAL: Decreased range of movement of the right hip because of pain. Otherwise no clubbing or cyanosis. BOATS RENTER: No focal deficits. Power is 5/5 in all extremities. LABORATORY REVIEW: CBC showed WBC of 5, hemoglobin 10.1, platelets 106,000. Urinalysis showed 2+ protein, 1+ blood. BMP showed sodium 137, potassium 4.3, chloride 106, bicarb 25, BUN 43, creatinine 3.9, glucose 169, calcium 13.1, ionized calcium 6.5. AST 22, ALT 40, alkaline phosphatase 132, albumin 1.6. PTH is 19.7. [place] lambda light chains are pending. SPEP is pending. COVID-19 is negative. IMAGING DATA: A CT scan of the head was done, which showed no evidence of intracranial metastatic disease. A CT of the chest was done without contrast, which showed diffuse metastatic bone disease with lytic lesions, including some expansile lesions in manubrium, right clavicle, and involving all of the ribs, vertebral bodies, sternum, and proximal right humerus. Scapulae also showed small lytic lesions. Expansile destructive lesions in the ribs and pathological fractures of 7 through 10th posterolateral left ribs. Lung bolivar showed some changes of COPD and subsegmental atelectatic changes. No parenchymal lung mass, mediastinal mass, or adenopathy was seen. A CT scan of the abdomen and pelvis was also done, which showed extensive lytic metastatic disease throughout the visualized bones with the largest in the right iliac bone and acetabulum on the right, involving the anterior column. Multiple lytic lesions in the spine with some cortical destruction and destruction at the levels described. Smaller lytic metastatic lesions throughout the remainder of the bones and enlarged prostate measuring 6.3 x 5.6 x 5 cm. No ascites. No upper abdominal solid organ mass or significant findings in the abdomen. CURRENT INPATIENT MEDICATIONS: The patient's medications were all reviewed by myself. He was on normal saline at 120 mL/hour, I have decreased the fluid rate to 100 mL/hour. He is on Tylenol p.r.n. I have started the patient on Calcitonin 300 international units subcutaneously q. 12 hourly. He is on tramadol 50 mg q. 6 hours p.r.n. moderate pain and heparin subcutaneously. ASSESSMENT AND PLAN: 1. Acute renal failure. The patient has lytic bone lesions throughout the body. He has mild proteinuria and hematuria. There is high likelihood that this patient has multiple myeloma and myeloma nephropathy. No acute indication for renal biopsy. This patient needs a bone marrow biopsy to ascertain the diagnosis of multiple myeloma. At this point, I would just need to hydrate the patient and treat his hypercalcemia. No urgent need of hemodialysis since electrolyte and acid-base status is within the acceptable range; except hypercalcemia. Management of hypercalcemia as mentioned below. 2. Hypercalcemia. The patient has hypercalcemia of malignancy. He has multiple lytic bone lesions. He was started on IV normal saline and subcutaneous Calcitonin injections. Because of acute renal failure, he is not a good candidate for zoledronic acid. I have discussed with hematology, patient would need to get Xgeva 120 mg subcutaneous injection x1 dose, and that would help improve his hypercalcemia. PTH level is appropriate low. 3. Anemia with multiple lytic bone lesions. I am going to check the iron levels; however, I believe the anemia is related to multiple myeloma; although, we do not have a tissue biopsy available at this time. No need of Aranesp administration at this time. Hemoglobin is more than 10. 4. Multiple lytic bone lesions. The patient was already seen by hematology/oncology and radiation oncology. Radiation oncology is planning to do palliative radiation to the right hip. Hematology plans to do a bone marrow biopsy. SPEP and kappa lambda light chains have already been ordered. If bone marrow biopsy does not give us a diagnosis, then a direct biopsy of the lytic lesions would be done. Thank you for involving me in the care of this patient. I shall be happy to follow the patient along with you tomorrow morning. MTDD
[2020-08-05] MEDS ORDERED: LIDOCAINE 1% MDV 20ML VIAL As Ordered ONE (09:26)
[2020-08-05] MEDS: NS 1,000 ML IV SCH ×2 (09:48→17:00)
[2020-08-05] MEDS: CALCITONIN SALMON (MIACALCIN) 400INTERNATIONAL UNITS/2ML INJ (J0630) SQ SCH ×2 (09:48→20:57)
[2020-08-05] MEDS ORDERED: DENOSUMAB (XGEVA) 120MG/1.7ML VIAL (J0897 PER 1MG) (FOR ONCOLOGY) SC ONE (10:00)
[2020-08-05] MEDS: BENZONATATE 100 MG CAP PO PRN ×2 (11:57→20:57)
[2020-08-05 14:00] VITALS: BP 137/70
--- NOTE | 2020-08-05 15:40 | IPN ---
PROGRESS NOTE DATE: 08/05/2020 SUBJECTIVE: Patient was seen and examined at the bedside today morning. He is afebrile, hemodynamically stable. He continues to be on intravenous (IV) normal saline and calcitonin subcutaneous injections. Calcium levels are improving. No significant improvement in the renal function. Creatinine has slightly improved from 3.9 to 3.7 today. Xgeva was not approved yesterday, but it has been approved by the pharmacy and it will be given around 10:00 today. Patient is also going to have his bone marrow biopsy done today by interventional radiology (IR). OBJECTIVE: VITAL SIGNS: Temperature 98.9 degrees Fahrenheit, blood pressure 130/69, pulse 74, respiratory rate 17, saturating 95% on room air. INTAKE AND OUTPUT: Urine output recorded is 1.8 liters yesterday, 1.6 so far today since overnight. Weight in the bed scale is not available. PHYSICAL EXAMINATION: GENERAL: Patient is awake, alert, oriented times three, laying in bed, no apparent distress. HEAD AND NECK EXAM: Extraocular muscles intact. Pupils equally round and reactive to light. Mucous membranes are moist. Neck is supple. There is no jugular venous distention (JVD). CARDIOVASCULAR: S1, S2. Regular rate. No edema of the bilateral lower extremities. RESPIRATORY: Chest is clear to auscultation bilaterally. Bilateral equal air entry. No rales or rhonchi. ABDOMEN: Soft. Positive bowel sounds. Nontender. No organomegaly. MUSCULOSKELETAL: No clubbing or cyanosis. Pulses are 2+. CENTRAL NERVOUS SYSTEM (PROFILER OPERATOR): No focal deficits. Power is 5/5 in bilateral upper extremities. LABORATORY REVIEW: CBC showed WBC 4.2, hemoglobin 9, platelets 94. BMP showed sodium 138, potassium 4.2, chloride 110, bicarbonate 21, BUN 41, creatinine 3.7, calcium 11.3. [place] lambda light chain ratio is pending. CURRENT INPATIENT MEDICATIONS: Patient's medications were all reviewed by myself. Patient continues to be on IV normal saline. He continues to be on calcitonin subcutaneous injections as well. One dose of Xgeva 120 mg subcutaneous to be given today. No other significant change in the medications. ASSESSMENT AND PLAN: 1. Acute nonoliguric renal failure. Patient's creatinine is slightly better today. He has mild proteinuria and hematuria. 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 The patient is going to have the bone marrow biopsy done today, so I am withholding the kidney biopsy at this time. Continue IV fluid hydration for hypercalcemia. 2. Hypercalcemia of malignancy. Continue normal saline and calcitonin. Xgeva dose will be given today. Once the calcium level improves to below 10, then calcitonin and IV fluids will be stopped. 3. Anemia with multiple lytic bone lesions. Most likely it is multiple myeloma. There is no erythropoiesis-stimulating agents (NAHEED) at this time. The rest of the management is as per hematology/oncology. 4. Multiple lytic bone lesions. Radiation oncology is on board. Patient is going to have palliative chemotherapy in the right hip.
--- NOTE | 2020-08-05 16:38 | IPNPDOC ---
Date Seen The patient was seen on 08/05/20. Progress Note SUBJECTIVE: Extensive lytic/bone disease on CT chest, abd/pelvis. To likely start radiation treatments after weekend. BM bx today, starting xygva today as well. Cr minimally improved, on IVFs. Feels better compared to when he arrived, denies chest pain, shortness of breath, fatigue, n/v/d. OBJECTIVE: PHYSICAL EXAMINATION: VS: Please see below CONSTITUTIONAL: No acute distress, resting comfortably, AAO x 3 EYES: PERRLA, EOM intact HENT, MOUTH: Normocephalic, atraumatic, moist mucous membranes, NECK: SUPPLE, no JVD, no lymphadenopathy, no carotid bruit CV: Regular rate and rhythm, S1S2 normal, no murmurs/rubs/gallops RESPIRATORY: Clear to auscultation bilaterally, no rales/rhonchi/wheezes GI: BS positive in 4 quadrants, soft, nontender, nondistended, no rebound or guarding, no organomegaly : Deferred MUSCULOSKELETAL: ROM not tested for right hip, cannot laterally rotate hip out but can internally rotate without issue. No cyanosis, clubbing, swelling, joint deformity, extremity edema INTEGUMENTARY: Intact, no rashes, no lesions, no erythema NEUROLOGIC: Cranial Nerves II-XII are intact, no focal deficits PSYCHIATRIC: Mood and affect are normal LABORATORY DATA: Please see below IMAGING: CT head: No evidence of intracranial metastatic disease. CT chest without contrast: 1. Diffuse metastatic bone disease with lytic lesions including some expansile lesions in manubrium, right clavicle and involving all of the ribs, vertebral bodies, sternum and the proximal right humerus. The scapulae also show small lytic lesions. Expansile destructive lesions in ribs and pathologic fractures 7th through 10th posterolateral left ribs. 2. Lung bolivar show some changes of COPD, subsegmental atelectatic change right lower lobe and some dependent atelectasis deep sulci. No parenchymal lung mass, mediastinal mass or adenopathy. CT abd/pelvis without contrast: 1. Extensive lytic metastatic disease throughout the visualized bones with the largest in the right iliac bone and acetabulum on the right involving its anterior column. Expansile components and cortical destruction noted as described. 2. Multiple lytic lesions in the spine with some cortical disruption and destruction at the levels described there is no lumbar or lower thoracic compression deformity with some the lytic lesions may lead to compression fractures a ventrally. Most concern for T9 at T12 and L1 at the present time. 3. Smaller lytic metastatic lesions lesions throughout the remainder of the bones as described. 4. Enlarged prostate indenting bladder base and measuring 6.3 x 5.6 x 5 cm. 5. No ascites, intra-adenopathy upper abdominal solid organ mass, ascites or other significant finding in the abdomen and pelvic soft tissues. R hip XR: Multiple lytic destructive lesions, multiple myeloma versus is widespread bony metastatic disease. Large lesion near the acetabulum on the right raises the issue of pathologic fracture risk. ASSESSMENT: 70-year-old male with past medical history of hyperlipidemia and trauma to the right hip 04/2020 admitted for further workup of right hip pain r/o neoplastic disease, hypercalcemia, acute kidney injury. PLAN: Extensive lytic metastatic disease throughout pelvis, chest r/o neoplastic process (MM) -Pain of right hip s/p trauma 04/2020, unintentional wt loss, hypercalcemia, KIMBERLY, wt loss, lethargy -Scans above. Pathologic fractures 7th through 10th posterolateral left ribs. -F/u MM w/u, BM biopsy -Heme/onc (Dr. Gleason) and radiation oncology (Dr. Stafford) consulted. Likely to start radiation sessions after the weekend. -F/u MM workup (SPEP, UPEP, etc) -Pain control Hypercalcemia, acute possibly 2/2 to lytic process (multiple myeloma versus is widespread bony metastatic disease) -Ionized calcium elevated -Starting Xgeva (denosumab) and miacalcin (calcitonin-salmon) -IVFs at 100 cc/hr -Nephrology following Acute kidney injury likely 2/2 to above -Cr 3.70, baseline is wnl -Daily CMP -C/w NS at 100 cc/hr -Nephrology consulted Prediabetes -HbA1c 6.2 -BS wnl this AM -Will follow FS AC, holding ISS for now -Consistent carb diet Hx of HLD -TG slightly elevated -Not currently on med CARA -Started on supplementation DVT px -Heparin SC DISPOSITION: Admitted as acute inpatient. Radiation oncology, heme/onc and nep hrology consulted. VS, I&O, 24H, Fishbone Vital Signs/I&O Vital Signs Date Time Temp Pulse Resp B/P (MAP) Pulse Ox O2 Delivery O2 Flow Rate FiO2 08/05/20 14:00 97.9 67 18 137/70 (92) 97 Room Air I&O- Last 24 Hours up to 6 AM 08/05/20 06:00 Intake Total 620 ml Output Total 2825 ml Balance -2205 ml Laboratory Data 24H LABS Laboratory Tests 2 08/05/20 06:02: Nucleated Red Blood Cells % (auto) 0.0, Immature Platelet Fraction 2.1, Anion Gap 7L, Glomerular Filtration Rate 17.4L, Calcium Level 11.3H, Iron Level 62L, Total Iron Binding Capacity 246L, Transferrin % Saturation 25.2, Ferritin 766H, Total Bilirubin 0.3, Aspartate Amino Transf (AST/SGOT) 21, Alanine Aminotransferase (ALT/SGPT) 33, Alkaline Phosphatase 119H, Total Protein 6.3L, Albumin 3.4, Albumin/Globulin Ratio 1.2, Prostate Specific Antigen Screen 2.29 CBC/BMP Laboratory Tests 08/05/20 06:02 Current Medications Current Medications Medications (Trade) Dose Ordered Sig/Dagoberto Route PRN Reason Start Time Stop Time Status Last Admin Dose Admin Acetaminophen (Tylenol Tab) 650 mg Q4H PRN PO PAIN OR FEVER 08/04/20 12:40 Benzonatate (Tessalon Perles) 100 mg TIDP PRN PO COUGH 08/04/20 22:20 08/05/20 11:57 Calcitonin [place] (Miacalcin) 300 interunits Q12H SQ 08/04/20 21:00 08/05/20 09:48 Heparin Sodium (Porcine) (Heparin) 5,000 units Q12H SC 08/04/20 09:00 08/04/20 21:42 Home Med (Med Rec Complete!) ASDIRECTED XX 08/04/20 22:00 08/04/20 21:59 DC Sodium Chloride 1,000 ml @ 100 mls/hr Q10H IV 08/04/20 12:50 08/05/20 09:48 Tramadol HCl (Ultram) 50 mg Q6HP PRN PO MODERATE PAIN (PS 5-7) 08/04/20 14:10 08/05/20 05:00 Allergies Coded Allergies: No Known Allergies (Unverified , 08/04/20) Vani Montes MD Aug 05, 2020 16:38
--- NOTE | 2020-08-05 17:38 | REP ---
INDICATION: RIGHT HIP LESION BONE BX. COMPARISON: None. TECHNIQUE: The procedure was performed under the direct supervision of Dr. Chamberlain. The patient has a history of extensive lytic metastatic disease throughout the visualized bones with the largest in the right iliac bone and acetabulum on the right involving its anterior column seen on a previous CT scan dated 08/04/2020. The risks and benefits of the procedure were explained to the patient and informed consent was obtained. The lesion in the right iliac bone was localized using CT guidance. The skin was prepped and draped in a sterile fashion. 1% lidocaine was used as a local anesthetic. Using CT guidance a 17/18 gauge coaxial needle biopsy system was inserted and advanced into the lesion. Six core biopsy samples were obtained and sent to the lab. The patient tolerated the procedure well and there were no immediate complications. FINDINGS: None IMPRESSION: CT-guided right iliac bone biopsy. <Electronically signed by Pan Gentile > 08/05/20 1612 <Electronically signed by Daquan Chamberlain > 08/05/20 [id number]
[2020-08-05] MEDS: FERROUS SULFATE 325MG TAB PO SCH (20:57)
[2020-08-05 22:00] VITALS: BP 140/71
[2020-08-06] MEDS: NS 1,000 ML IV SCH ×2 (03:03→10:20)
[2020-08-06 06:00] VITALS: BP 130/76
[2020-08-06 06:31] LABS: HEMATOCRIT 26.2 % (42.0-52.0); HEMOGLOBIN 8.6 g/dl (13.5-17.5); MEAN CORPUSCULAR HEMOGLOBIN 30.9 pg (27.0-33.0); MEAN CORPUSCULAR HGB CONC 32.8 g/dl (32.0-36.5); MEAN CORPUSCULAR VOLUME 94.2 fl (80.0-96.0); RED BLOOD COUNT 2.78 10^6/uL (4.30-6.10); WHITE BLOOD COUNT 4.1 10^3/uL (4.0-10.0)
[2020-08-06 06:33] LABS: PLATELET COUNT, AUTOMATED 90 10^3/uL (150-450)
[2020-08-06 06:57] LABS: ALBUMIN 3.2 GM/DL (3.2-5.2); BILIRUBIN,TOTAL 0.4 MG/DL (0.2-1.0); CALCIUM LEVEL 10.3 MG/DL (8.8-10.2); CREATININE FOR GFR 3.23 MG/DL (0.70-1.30); GLOMERULAR FILTRATION RATE 20.4 (>49); POTASSIUM SERUM 3.9 MEQ/L (3.5-5.1); TOTAL PROTEIN 5.7 GM/DL (6.4-8.2)
[2020-08-06] MEDS: FERROUS SULFATE 325MG TAB PO SCH ×2 (09:19→20:20)
[2020-08-06] MEDS: CALCITONIN SALMON (MIACALCIN) 400INTERNATIONAL UNITS/2ML INJ (J0630) SQ SCH ×2 (09:19→20:20)
[2020-08-06] MEDS: HEPARIN SOD (PORCINE) 5000UNITS/ML 1ML VIAL/SYRINGE SC SCH ×2 (10:20→20:20)
--- NOTE | 2020-08-06 13:29 | IPN ---
PROGRESS NOTE DATE: 08/06/2020 SUBJECTIVE: Mr. Padgett is seen and examined this morning at the bedside. He complains of persistent dry cough but otherwise denies any issues. Specifically denies any shortness of breath. Reports he has been voiding to the urinal without any problem. He continues on intravenous (IV) fluids and calcitonin. He also received a dose of denosumab yesterday, and his renal function and his calcium levels are both improving. VITAL SIGNS: Temperature 99.0, pulse 74, respiratory rate 18, blood pressure 130/76, saturating 97% on room air. Intake yesterday was 1760. Urine output yesterday was 3.1 liters. Weight in the bed scale today is not recorded. GENERAL: Patient is seen awake, alert, oriented, comfortable in no apparent distress. Extraocular muscles are intact. Tongue is moist. Neck is supple. Jugular veins are not elevated. HEART: Sounds are regular, S1, S2. There is no dependent edema. There is no edema of the bilateral lower extremities. LUNGS: Clear to auscultation bilaterally. No crackle or rale. I do appreciate that he coughs with deep inspiration. ABDOMEN: Soft and nontender. There are bowel sounds. EXTREMITIES: Show no clubbing or cyanosis. Peripheral pulses are palpable. NEUROLOGIC: He is oriented times three. No focal deficits. SKIN: Normal temperature and turgor. Today's laboratory studies show sodium 140, potassium 3.9, bicarbonate 20, BUN 33, creatinine 3.2, calcium 10.3 with an albumin of 3.2, giving a corrected calcium of about 10.7. Hemoglobin 8.6 and platelets 90. INPATIENT MEDICATIONS: He continues on: - Tylenol as needed. - Tessalon Perles as needed - calcitonin 300 units subcutaneous every 12 hours - ferrous sulfate 325 mg by mouth twice a day - heparin 5000 units every 12 hours subcutaneous - normal saline at 100 mL an hour - tramadol as needed PROBLEMS: 1. Acute kidney injury (KIMBERLY) superimposed on chronic kidney disease (CKD), stage III. Patient is nonoliguric. When I look back at his old laboratory studies, his last creatinine in 2019 was 1.2. His acute kidney injury is in the setting of newly diagnosed multiple lytic bone lesions and hypercalcemia. He had a right iliac bone biopsy done yesterday, and he is followed by hematology. At present, I would continue him on intravenous (IV) fluids, and his creatinine is improving. I will switch to half-normal saline at this time. 2. Hypercalcemia. Hypercalcemia of malignancy. Patient received a dose of XGEVA yesterday. He is also on intravenous (IV) fluids and on calcitonin. His corrected calcium is around 10.7 today, so I will continue with the calcitonin and IV fluids for one more day. 3. Anemia with multiple lytic bone lesions, most likely multiple myeloma. I will defer management of his anemia to hematology, and he continues on an oral iron supplement, and there is also concomitant thrombocytopenia noted.
[2020-08-06 14:00] VITALS: BP 138/78
[2020-08-06] MEDS: NS 0.45% 1,000 ML IV SCH (15:17)
--- NOTE | 2020-08-06 16:22 | IPNPDOC ---
Date Seen The patient was seen on 08/06/20. Progress Note SUBJECTIVE: Cr and calcium improving slowly. Feels better since admission, has more energy. Denies chest pain, shortness of breath, fatigue, n/v/d. OBJECTIVE: PHYSICAL EXAMINATION: VS: Please see below CONSTITUTIONAL: No acute distress, resting comfortably, AAO x 3 EYES: PERRLA, EOM intact HENT, MOUTH: Normocephalic, atraumatic, moist mucous membranes, NECK: SUPPLE, no JVD, no lymphadenopathy, no carotid bruit CV: Regular rate and rhythm, S1S2 normal, no murmurs/rubs/gallops RESPIRATORY: Clear to auscultation bilaterally, no rales/rhonchi/wheezes GI: BS positive in 4 quadrants, soft, nontender, nondistended, no rebound or guarding, no organomegaly : Deferred MUSCULOSKELETAL: ROM not tested for right hip, cannot laterally rotate hip out but can internally rotate without issue. No cyanosis, clubbing, swelling, joint deformity, extremity edema INTEGUMENTARY: Intact, no rashes, no lesions, no erythema NEUROLOGIC: Cranial Nerves II-XII are intact, no focal deficits PSYCHIATRIC: Mood and affect are normal LABORATORY DATA: Please see below IMAGING: CT head: No evidence of intracranial metastatic disease. CT chest without contrast: 1. Diffuse metastatic bone disease with lytic lesions including some expansile lesions in manubrium, right clavicle and involving all of the ribs, vertebral bodies, sternum and the proximal right humerus. The scapulae also show small lytic lesions. Expansile destructive lesions in ribs and pathologic fractures 7th through 10th posterolateral left ribs. 2. Lung bolivar show some changes of COPD, subsegmental atelectatic change right lower lobe and some dependent atelectasis deep sulci. No parenchymal lung mass, mediastinal mass or adenopathy. CT abd/pelvis without contrast: 1. Extensive lytic metastatic disease throughout the visualized bones with the largest in the right iliac bone and acetabulum on the right involving its anterior column. Expansile components and cortical destruction noted as described. 2. Multiple lytic lesions in the spine with some cortical disruption and destruction at the levels described there is no lumbar or lower thoracic compression deformity with some the lytic lesions may lead to compression fractures a ventrally. Most concern for T9 at T12 and L1 at the present time. 3. Smaller lytic metastatic lesions lesions throughout the remainder of the bones as described. 4. Enlarged prostate indenting bladder base and measuring 6.3 x 5.6 x 5 cm. 5. No ascites, intra-adenopathy upper abdominal solid organ mass, ascites or other significant finding in the abdomen and pelvic soft tissues. R hip XR: Multiple lytic destructive lesions, multiple myeloma versus is widespread bony metastatic disease. Large lesion near the acetabulum on the right raises the issue of pathologic fracture risk. ASSESSMENT: 70-year-old male with past medical history of hyperlipidemia and trauma to the right hip 04/2020 admitted for further workup of right hip pain r/o neoplastic disease, hypercalcemia, acute kidney injury. PLAN: Extensive lytic metastatic disease throughout pelvis, chest r/o neoplastic process (MM) -Pain of right hip s/p trauma 04/2020, unintentional wt loss, hypercalcemia, KIMBERLY , wt loss, lethargy -Scans above. Pathologic fractures 7th through 10th posterolateral left ribs. -F/u MM w/u, BM biopsy -Heme/onc (Dr. Gleason) and radiation oncology (Dr. Stafford) consulted. Likely to start radiation sessions after the weekend. -F/u MM workup (SPEP, UPEP, etc) -Pain control Hypercalcemia, acute possibly 2/2 to lytic process (?multiple myeloma with widespread bony metastatic disease) -C/w Xgeva (denosumab), miacalcin (calcitonin-salmon), IVFs at 100 cc/hr 1/2 NS -Nephrology following Acute kidney injury likely 2/2 to above -Cr 3.3.23, baseline is wnl -Daily CMP -C/w IVFs -Nephrology consulted Prediabetes -HbA1c 6.2 -BS wnl this AM -Will follow FS AC, holding ISS for now -Consistent carb diet Hx of HLD -TG slightly elevated -Not currently on med CARA -c/w ferrous sulfate BID Thrombocytopenia, acute vs. chronic -PLTs 90 -If continues to drop, stop heparin sc DVT px -Heparin SC DISPOSITION: Admitted as acute inpatient. Radiation oncology, heme/onc and nep hrology consulted. VS, I&O, 24H, Fishbone Vital Signs/I&O Vital Signs Date Time Temp Pulse Resp B/P (MAP) Pulse Ox O2 Delivery O2 Flow Rate FiO2 08/06/20 14:00 96.8 68 20 138/78 (98) 96 Room Air I&O- Last 24 Hours up to 6 AM 08/06/20 06:00 Intake Total 2400 ml Output Total 3150 ml Balance -750 ml Laboratory Data 24H LABS Laboratory Tests 2 08/06/20 05:41: Nucleated Red Blood Cells % (auto) 0.0, Anion Gap 6L, Glomerular Filtration Rate 20.4L, Calcium Level 10.3H, Total Bilirubin 0.4, Aspartate Amino Transf (AST/SGOT) 17, Alanine Aminotransferase (ALT/SGPT) 29, Alkaline Phosphatase 111, Total Protein 5.7L, Albumin 3.2, Albumin/Globulin Ratio 1.3 CBC/BMP Laboratory Tests 08/06/20 05:41 Current Medications Current Medications Medications (Trade) Dose Ordered Sig/Dagoberto Route PRN Reason Start Time Stop Time Status Last Admin Dose Admin Acetaminophen (Tylenol Tab) 650 mg Q4H PRN PO PAIN OR FEVER 08/04/20 12:40 Benzonatate (Tessalon Perles) 100 mg TIDP PRN PO COUGH 08/04/20 22:20 08/05/20 20:57 Calcitonin [place] (Miacalcin) 300 interunits Q12H SQ 08/04/20 21:00 08/06/20 09:19 Ferrous Sulfate (Ferrous Sulfate) 325 mg BID PO 08/05/20 21:00 08/06/20 09:19 Heparin Sodium (Porcine) (Heparin) 5,000 units Q12H SC 08/04/20 09:00 08/06/20 10:20 Home Med (Med Rec Complete!) ASDIRECTED XX 08/04/20 22:00 08/04/20 21:59 DC Sodium Chloride 1,000 ml @ 80 mls/hr [id number] IV 08/06/20 15:30 08/06/20 15:17 Sodium Chloride 1,000 ml @ 100 mls/hr Q10H IV 08/04/20 12:50 08/06/20 15:05 DC 08/06/20 10:20 Tramadol HCl (Ultram) 50 mg Q6HP PRN PO MODERATE PAIN (PS 5-7) 08/04/20 14:10 08/05/20 20:58 Allergies Coded Allergies: No Known Allergies (Unverified , 08/04/20) Vani Montes MD Aug 06, 2020 16:22
[2020-08-06 20:00] VITALS: BP 138/75
[2020-08-06] MEDS: BENZONATATE 100 MG CAP PO PRN (20:19)
[2020-08-07] MEDS: NS 0.45% 1,000 ML IV SCH (02:52)
[2020-08-07 06:00] VITALS: BP 136/78
[2020-08-07 06:50] LABS: HEMATOCRIT 26.7 % (42.0-52.0); HEMOGLOBIN 8.8 g/dl (13.5-17.5); PLATELET COUNT, AUTOMATED 100 10^3/uL (150-450); RED BLOOD COUNT 2.84 10^6/uL (4.30-6.10); WHITE BLOOD COUNT 4.3 10^3/uL (4.0-10.0)
[2020-08-07 07:14] LABS: ALBUMIN 3.2 GM/DL (3.2-5.2); BILIRUBIN,TOTAL 0.5 MG/DL (0.2-1.0); CALCIUM LEVEL 9.8 MG/DL (8.8-10.2); CREATININE FOR GFR 3.14 MG/DL (0.70-1.30); GLOMERULAR FILTRATION RATE 21.1 (>49); TOTAL PROTEIN 6.3 GM/DL (6.4-8.2)
[2020-08-07] MEDS: HEPARIN SOD (PORCINE) 5000UNITS/ML 1ML VIAL/SYRINGE SC SCH ×2 (08:47→20:22)
[2020-08-07] MEDS: FERROUS SULFATE 325MG TAB PO SCH ×2 (08:47→20:22)
[2020-08-07 09:06] LABS: BETA 2 MICROGLOBULIN 11.7 mg/L (0.6-2.4); FREE LAMBDA LIGHT CHAINS SERUM 3.9 mg/L (5.7-26.3); KAPPA/LAMBDA RATIO SERUM 2110.77 (0.26-1.65)
--- NOTE | 2020-08-07 11:46 | IPNPDOC ---
Date Seen The patient was seen on 08/07/20. Progress Note SUBJECTIVE: Calcitonin stopped, IVF changed. Denies chest pain, shortness of breath, fatigue, n/v/d. OBJECTIVE: PHYSICAL EXAMINATION: VS: Please see below CONSTITUTIONAL: No acute distress, resting comfortably, AAO x 3 EYES: PERRLA, EOM intact HENT, MOUTH: Normocephalic, atraumatic, moist mucous membranes, NECK: SUPPLE, no JVD, no lymphadenopathy, no carotid bruit CV: Regular rate and rhythm, S1S2 normal, no murmurs/rubs/gallops RESPIRATORY: Clear to auscultation bilaterally, no rales/rhonchi/wheezes GI: BS positive in 4 quadrants, soft, nontender, nondistended, no rebound or guarding, no organomegaly : Deferred MUSCULOSKELETAL: ROM not tested for right hip, cannot laterally rotate hip out but can internally rotate without issue. No cyanosis, clubbing, swelling, joint deformity, extremity edema INTEGUMENTARY: Intact, no rashes, no lesions, no erythema NEUROLOGIC: Cranial Nerves II-XII are intact, no focal deficits PSYCHIATRIC: Mood and affect are normal LABORATORY DATA: Please see below IMAGING: CT head: No evidence of intracranial metastatic disease. CT chest without contrast: 1. Diffuse metastatic bone disease with lytic lesions including some expansile lesions in manubrium, right clavicle and involving all of the ribs, vertebral bodies, sternum and the proximal right humerus. The scapulae also show small lytic lesions. Expansile destructive lesions in ribs and pathologic fractures 7th through 10th posterolateral left ribs. 2. Lung bolivar show some changes of COPD, subsegmental atelectatic change right lower lobe and some dependent atelectasis deep sulci. No parenchymal lung mass, mediastinal mass or adenopathy. CT abd/pelvis without contrast: 1. Extensive lytic metastatic disease throughout the visualized bones with the largest in the right iliac bone and acetabulum on the right involving its anterior column. Expansile components and cortical destruction noted as described. 2. Multiple lytic lesions in the spine with some cortical disruption and destruction at the levels described there is no lumbar or lower thoracic compression deformity with some the lytic lesions may lead to compression fractures a ventrally. Most concern for T9 at T12 and L1 at the present time. 3. Smaller lytic metastatic lesions lesions throughout the remainder of the bones as described. 4. Enlarged prostate indenting bladder base and measuring 6.3 x 5.6 x 5 cm. 5. No ascites, intra-adenopathy upper abdominal solid organ mass, ascites or other significant finding in the abdomen and pelvic soft tissues. R hip XR: Multiple lytic destructive lesions, multiple myeloma versus is widespread bony metastatic disease. Large lesion near the acetabulum on the right raises the issue of pathologic fracture risk. ASSESSMENT: 70-year-old male with past medical history of hyperlipidemia and trauma to the right hip 04/2020 admitted for further workup of right hip pain r/o neoplastic disease, hypercalcemia, acute kidney injury. PLAN: Extensive lytic metastatic disease throughout pelvis, chest r/o neoplastic process (MM) -Pain of right hip s/p trauma 04/2020, unintentional wt loss, hypercalcemia, KIMBERLY, wt loss, lethargy -Scans above. Pathologic fractures 7th through 10th posterolateral left ribs. -F/u MM w/u, BM biopsy -Heme/onc (Dr. Gleason) and radiation oncology (Dr. Stafford) consulted. Likely to start radiation sessions after the weekend. -F/u MM workup (SPEP, UPEP, etc) -Pain control Hypercalcemia likely 2/2 to malignancy/lytic process (?multiple myeloma with widespread bony metastatic disease) -Improved -S/p Xgeva (denosumab), stopped miacalcin (calcitonin-salmon)today -Changed to D5W0.45 IVF -Nephrology following Acute kidney injury likely 2/2 to above -Cr 3.14, baseline is wnl -Daily CMP -C/w IVFs -Nephrology consulted Prediabetes -HbA1c 6.2 -BS wnl this AM -Will follow FS AC, holding ISS for now -Consistent carb diet Hx of HLD -TG slightly elevated -Not currently on med CARA -c/w ferrous sulfate BID Thrombocytopenia, acute vs. chronic -PLTs 100 -If continues to drop, stop heparin sc DVT px -Heparin SC DISPOSITION: Admitted as acute inpatient. Radiation oncology, heme/onc and nephrology consulted. VS, I&O, 24H, Fishbone Vital Signs/I&O Vital Signs Date Time Temp Pulse Resp B/P (MAP) Pulse Ox O2 Delivery O2 Flow Rate FiO2 08/07/20 06:00 99.0 72 18 136/78 (97) 97 Room Air I&O- Last 24 Hours up to 6 AM 08/07/20 06:00 Intake Total 2130 ml Output Total 4150 ml Balance -2020 ml Laboratory Data 24H LABS Laboratory Tests 2 08/07/20 06:25: Nucleated Red Blood Cells % (auto) 0.0, Anion Gap 7L, Glomerular Filtration Rate 21.1L, Calcium Level 9.8, Total Bilirubin 0.5, Aspartate Amino Transf (AST/SGOT) 21, Alanine Aminotransferase (ALT/SGPT) 29, Alkaline Phosphatase 107, Total Protein 6.3L, Albumin 3.2, Albumin/Globulin Ratio 1.0 CBC/BMP Laboratory Tests 08/07/20 06:25 Current Medications Current Medications Medications (Trade) Dose Ordered Sig/Dagoberto Route PRN Reason Start Time Stop Time Status Last Admin Dose Admin Acetaminophen (Tylenol Tab) 650 mg Q4H PRN PO PAIN OR FEVER 08/04/20 12:40 Benzonatate (Tessalon Perles) 100 mg TIDP PRN PO COUGH 08/04/20 22:20 08/06/20 20:19 Calcitonin [place] (Miacalcin) 300 interunits Q12H SQ 08/04/20 21:00 08/07/20 11:00 DC 08/06/20 20:20 Ferrous Sulfate (Ferrous Sulfate) 325 mg BID PO 08/05/20 21:00 08/07/20 08:47 Heparin Sodium (Porcine) (Heparin) 5,000 units Q12H SC 08/04/20 09:00 08/07/20 08:47 Home Med (Med Rec Complete!) ASDIRECTED XX 08/04/20 22:00 08/04/20 21:59 DC Sodium Bicarbonate 75 meq/Dextrose/Water 1,075 ml @ 70 mls/hr [id number] IV 08/07/20 13:00 08/08/20 03:17 Sodium Chloride 1,000 ml @ 80 mls/hr [id number] IV 08/06/20 15:30 08/07/20 11:01 DC 08/07/20 02:52 Sodium Chloride 1,000 ml @ 100 mls/hr Q10H IV 08/04/20 12:50 08/06/20 15:05 DC 08/06/20 10:20 Tramadol HCl (Ultram) 50 mg Q6HP PRN PO MODERATE PAIN (PS 5-7) 08/04/20 14:10 08/05/20 20:58 Allergies Coded Allergies: No Known Allergies (Unverified , 08/04/20) Vani Montes MD Aug 07, 2020 11:46
[2020-08-07] MEDS ORDERED: SODIUM BICARBONATE 75 MEQ in D5W 1,000 ML IV SCH (13:00)
[2020-08-07 14:00] VITALS: BP 138/76
--- NOTE | 2020-08-07 15:39 | IPN ---
NEPHROLOGY PROGRESS NOTE DATE: 08/07/2020 SUBJECTIVE: Patient seen and examined this morning at the bedside. He denies any overnight complaints. No shortness of breath. His calcium levels have improved. His Calcitonin is discontinued. His acute kidney injury persists, and he continues on IV fluids. His serum free light chain ratio showed severe derangement in kappa light chains. OBJECTIVE: VITAL SIGNS: Temperature 99, pulse 72, respiratory rate 18, blood pressure 136/78, saturating 97% on room air. INTAKE AND OUTPUT: Intake yesterday was 3 liters. Urine output was 3.6 liters. Weight in the bed scale today is not recorded. PHYSICAL EXAMINATION: GENERAL APPEARANCE: The patient is seen awake, alert, lying in bed, comfortable, in no apparent distress. HEENT: The extraocular muscles are intact. Tongue is moist. NECK: Supple. Jugular veins are not elevated. HEART: Regular, S1, S2. There is no peripheral edema. LUNGS: Clear to auscultation bilaterally. No crackles, rales or rhonchus. ABDOMEN: Soft and nontender. There are positive bowel sounds. GENITOURINARY: The bladder is not distended. He is using a urinal. EXTREMITIES: Negative for clubbing, cyanosis, or edema. NEUROLOGICAL: Oriented x3. No focal deficits. PSYCHIATRIC: Appropriate mood and affect. LABORATORY STUDIES: Hemoglobin 8.8, platelet count 100. Sodium 139, potassium 4.0, bicarbonate 18, BUN 31, creatinine 3.1. His serum free light chain ratio is more than 2,000 with extreme kappa excess. His urine protein electrophoresis is pending. CURRENT INPATIENT MEDICATIONS: The patient's Calcitonin is discontinued. His IV fluids are switched to d5w with 75 mEq of sodium bicarbonate to run at 70 mL an hour. His remainder of medications are unchanged as compared to yesterday. PROBLEMS: 1. 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 His serum free light chain ratio is more than 2,000 with extreme kappa light chain excess. I added a urine protein electrophoresis on as I do not see that it was sent. His SPEP is pending. I would continue IV fluids at this time, and he needs further treatment via Oncology in terms of his probable multiple myeloma. 2. Hypercalcemia of malignancy - The patient received a dose of Xgeva on Saturday. He also continues on IV fluids. I am stopping his Calcitonin. We will continue to monitor his calcium levels. 3. Anemia with multiple lytic bone lesions and very high serum free light chain ratio with kappa light chain excess most likely multiple myeloma. Defer management of his anemia to hematology. There is also concomitant thrombocytopenia noted. 4. Non anion gap metabolic acidosis his serum bicarbonate has downtrended to 18. I am changing his fluids. We will give him D5 with 75 mEq of sodium bicarbonate.
[2020-08-07] MEDS: BENZONATATE 100 MG CAP PO PRN (20:22)
[2020-08-07 21:23] LABS: APPEARANCE, URINE CLEAR (CLEAR); BACTERIA, URINE AUTO NEGATIVE (NEGATIVE); BILIRUBIN, URINE AUTO NEGATIVE (NEGATIVE); BLOOD, URINE BLOOD 3+ (NEGATIVE); COLOR, URINE STRAW (YELLOW); GLUCOSE, URINE (UA) AUTO NEGATIVE (NEGATIVE); KETONE, URINE AUTO NEGATIVE (NEGATIVE); LEUKOCYTE ESTERASE, URINE AUTO NEGATIVE (NEGATIVE); MUCUS, URINE SMALL (NEGATIVE); NITRITE, URINE AUTO NEGATIVE (NEGATIVE); PROTEIN, URINE AUTO 1+ mg/dL (NEGATIVE); RBC, URINE AUTO TNTC /HPF (0-3); SPECIFIC GRAVITY URINE AUTO 1.005 (1.002-1.035); SQUAMOUS EPITHELIAL CELL UR AU 0 /HPF (0-6); UROBILINOGEN, URINE AUTO 0.2 mg/dL (0.0-2.0); WBC, URINE AUTO 1 /HPF (0-3)
[2020-08-07 22:00] VITALS: BP 144/78
[2020-08-08 06:00] VITALS: BP 147/78
[2020-08-08 06:24] LABS: HEMATOCRIT 26.3 % (42.0-52.0); MEAN CORPUSCULAR HEMOGLOBIN 31.6 pg (27.0-33.0); MEAN CORPUSCULAR HGB CONC 34.2 g/dl (32.0-36.5); MEAN CORPUSCULAR VOLUME 92.3 fl (80.0-96.0); PLATELET COUNT, AUTOMATED 101 10^3/uL (150-450); RED BLOOD COUNT 2.85 10^6/uL (4.30-6.10); WHITE BLOOD COUNT 4.3 10^3/uL (4.0-10.0)
[2020-08-08 06:49] LABS: ALBUMIN 3.3 GM/DL (3.2-5.2); BILIRUBIN,TOTAL 0.5 MG/DL (0.2-1.0); CALCIUM LEVEL 9.5 MG/DL (8.8-10.2); CREATININE FOR GFR 3.16 MG/DL (0.70-1.30); GLOMERULAR FILTRATION RATE 20.9 (>49); POTASSIUM SERUM 3.8 MEQ/L (3.5-5.1)
[2020-08-08] MEDS: HEPARIN SOD (PORCINE) 5000UNITS/ML 1ML VIAL/SYRINGE SC SCH (08:22)
[2020-08-08] MEDS ORDERED: SODIUM BICARBONATE 100 MEQ in D5W 1,000 ML IV SCH (09:00)
[2020-08-08] MEDS: FERROUS SULFATE 325MG TAB PO SCH (09:48)
[2020-08-08] MEDS ORDERED: FERR325T18 PO (12:23)
[2020-08-08] MEDS ORDERED: ACET1TAB55 PO (12:23)
[2020-08-08 13:09] VITALS: BP 148/80
[2020-08-08 15:36] LABS: ALPHA-1-GLOBULIN % 5.7 % (2.9-4.9)
[2020-08-08 15:37] LABS: ALPHA-2-GLOBULINS 1.24 GM/DL (0.42-0.99); ALPHA-2-GLOBULINS % 17.4 % (7.1-11.8); BETA-1-GLOBULINS 0.35 GM/DL (0.28-0.60); BETA-1-GLOBULINS % 4.9 % (4.7-7.2); BETA-2-GLOBULINS 0.31 GM/DL (0.19-0.55); BETA-2-GLOBULINS % 4.3 % (3.2-6.5); GAMMA GLOBULIN % 5.7 % (11.1-18.8)
--- NOTE | 2020-08-08 17:07 | DS.PDOC ---
Discharge Summary General Date of Admission Aug 04, 2020 at 11:35 Date of Discharge 08/08/20 Attending Physician: Vani Montes MD Discharge Summary HISTORY OF PRESENT ILLNESS: The patient is a 70-year-old male with past medical history of hyperlipidemia and trauma to the right hip 04/2020 who presented direct admission for hypercalcemia, right hip lytic lesion on x-ray, acute kidney injury. The patient was sent in from his primary care office on 08/04/2020 for abnormal labs. Ac cording to the primary care doctor and the patient, at the end of April 2020 he had fallen on a rock pile and injured his right hip. The patient states initially he did not have pain but over time the pain gradually developed. He's been having increased right hip pain, 10/10 with activity only, not present with rest. He states the pain is localized mostly in the right hip but can extend to above the right knee joint and a sharp most times. He is also complained of weight loss of approximately 1114 pounds since 05/2020, unintentional. He has not been feeling well for 1 month and has felt lethargic, had polyuria and excessive thirst. He denies sleep disturbance, shortness of breath, chest pain, nausea, vomiting, diarrhea, recent illnesses, fevers, chills, abdominal pain, dysuria, hematuria, extremity swelling. He also his primary care provider approximately 4 days ago and on 08/03/2020 they were able to have him come in to be seen. At that time labs were drawn and the patient was sent for a right hip x-ray. R hip XR: Multiple lytic destructive lesions, multiple myeloma versus is widespread bony metastatic disease. Also shows large lesion near the acetabulum on the right raises the issue of pathologic fracture risk. Labs returned showing elevated calcium at 13.8, Cr 3.91- no prior issues with calcium or Cr on labs in past. Patient was sent to hospital for direct admission for further workup of right hip pain r/o neoplastic disease, hypercalcemia, acute kidney injury. HOSPITAL COURSE: Extensive lytic metastatic disease was seen throughout pelvis, chest on CT scans 2/2 to multiple myeloma (MM). High free light chains, + pathology for plasma cell myeloma. Pathologic fractures were also seen 7th through 10th posterolateral left ribs. Heme/onc (Dr. Gleason) and radiation oncology (Dr. Stafford) consulted. Patient received 1st dose radiation prior to leaving hospital. Pain currently controlled. SPEP, UPEP still pending results but will be followed up by heme/onc closely. Plan is chemotherapy to start immediately as o/p, Dr. Gleason discussed plan with me today. Setting up follow up prior to discharge. To continue with f/u with Dr. Stafford as well. For hypercalcemia likely 2/2 to malignancy/lytic process, this improved s/p Xgeva (denosumab), miacalcin (calcitonin-salmon). 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 Cr 3.16 day of discharge , some improvement from admission. Per nephrology improvement will likely be seen more after chemotherapy initiated. He will be following up with nephrology as o/p. Next appointment arranged for within 1 week after discharge. Encouraging fluid hydration. On day of discharge he had no complaints, was in good spirits and understood discharge instructions. Other chronic issues were stable. PAST MEDICAL HISTORY: HLD Trauma to R hip s/p fall on 04/2020 PAST SURGICAL HISTORY: None FAMILY HISTORY: Father: Mother: SOCIAL HISTORY: Denies smoking, alcohol or drug use. Lives with his locally. Very active at baseline. PCP- Dr. Shaheed Maciel DISCHARGE MEDICATIONS: Please see below PHYSICAL EXAMINATION: VS: Please see below CONSTITUTIONAL: No acute distress, resting comfortably, AAO x 3 EYES: PERRLA, EOM intact HENT, MOUTH: Normocephalic, atraumatic, moist mucous membranes, NECK: SUPPLE, no JVD, no lymphadenopathy, no carotid bruit CV: Regular rate and rhythm, S1S2 normal, no murmurs/rubs/gallops RESPIRATORY: Clear to auscultation bilaterally, no rales/rhonchi/wheezes GI: BS positive in 4 quadrants, soft, nontender, nondistended, no rebound or guarding, no organomegaly : Deferred MUSCULOSKELETAL: ROM not tested for right hip, cannot laterally rotate hip out but can internally rotate without issue. No cyanosis, clubbing, swelling, joint deformity, extremity edema INTEGUMENTARY: Intact, no rashes, no lesions, no erythema NEUROLOGIC: Cranial Nerves II-XII are intact, no focal deficits PSYCHIATRIC: Mood and affect are normal LABORATORY DATA: Please see below IMAGING: CT head: No evidence of intracranial metastatic disease. CT chest without contrast: 1. Diffuse metastatic bone disease with lytic lesions including some expansile lesions in manubrium, right clavicle and involving all of the ribs, vertebral bodies, sternum and the proximal right humerus. The scapulae also show small lytic lesions. Expansile destructive lesions in ribs and pathologic fractures 7th through 10th posterolateral left ribs. 2. Lung bolivar show some changes of COPD, subsegmental atelectatic change right lower lobe and some dependent atelectasis deep sulci. No parenchymal lung mass, mediastinal mass or adenopathy. CT abd/pelvis without contrast: 1. Extensive lytic metastatic disease throughout the visualized bones with the largest in the right iliac bone and acetabulum on the right involving its anterior column. Expansile components and cortical destruction noted as desc ribed. 2. Multiple lytic lesions in the spine with some cortical disruption and destruction at the levels described there is no lumbar or lower thoracic compression deformity with some the lytic lesions may lead to compression fractures a ventrally. Most concern for T9 at T12 and L1 at the present time. 3. Smaller lytic metastatic lesions lesions throughout the remainder of the bones as described. 4. Enlarged prostate indenting bladder base and measuring 6.3 x 5.6 x 5 cm. 5. No ascites, intra-adenopathy upper abdominal solid organ mass, ascites or other significant finding in the abdomen and pelvic soft tissues. R hip XR: Multiple lytic destructive lesions, multiple myeloma versus is widespread bony metastatic disease. Large lesion near the acetabulum on the right raises the issue of pathologic fracture risk. ASSESSMENT: 70-year-old male with past medical history of hyperlipidemia and trauma to the right hip 04/2020 admitted for further workup of right hip pain r/o neoplastic disease, hypercalcemia, acute kidney injury. PLAN: Extensive lytic metastatic disease throughout pelvis, chest 2/2 to multiple myeloma (MM) -high free light chains, + pathology for plasma cell myeloma. -Scans above. Pathologic fractures 7th through 10th posterolateral left ribs. -Heme/onc (Dr. Gleason) and radiation oncology (Dr. Stafford) consulted. -Received 1st dose radiation prior to leaving hospital. -pain currently controlled -SPEP, UPEP still pending results -Plan is chemotherapy to start immediately as o/p, Dr. Gleason discussed plan with me today. Setting up follow up prior to discharge. To continue with f/u with Dr. Stafford. 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 -Following up with nephrology as o/p. Next appointment arranged for within 1 week after discharge. Encouraging fluid hydration Prediabetes -HbA1c 6.2 -F/u PCP Hx of HLD -TG slightly elevated -Not currently on med CARA -c/w ferrous sulfate BID Thrombocytopenia, acute vs. chronic -PLTs 100 -F/u PCP DISPOSITION: D/c home today with close follow up with radiation oncology, heme/onc and nephrology. TIME SPENT ON DISCHARGE: 35 minutes. Vital Signs/I&Os Vital Signs Date Time Temp Pulse Resp B/P (MAP) Pulse Ox O2 Delivery O2 Flow Rate FiO2 08/08/20 13:09 98.0 78 20 148/80 (102) 98 Room Air I&O- Last 24 Hours up to 6 AM 08/08/20 06:00 Intake Total 2050 ml Output Total 2850 ml Balance -800 ml Laboratory Data Labs 24H Laboratory Tests 2 08/07/20 21:08: Urine Color STRAW, Urine Appearance CLEAR, Urine pH 7.0, Urine Specific [place] 1.005, Urine Protein 1+H, Urine Glucose (Auto)(UA) NEGATIVE, Urine Ketones (Auto) NEGATIVE, Urine Blood 3+H, Urine Nitrite NEGATIVE, Urine Bilirubin NEGATIVE, Urine Urobilinogen 0.2, Urine Leukocyte Esterase (Auto) NEGATIVE, U rine WBC (Auto) 1, Urine RBC (Auto) TNTCH, Urine Hyaline Casts (Auto) 0, Urine Bacteria (Auto) NEGATIVE, Urine Squamous Epithelial Cells 0, Urine Mucus (Auto) SMALL, Urine Sperm (Auto) 08/08/20 05:46: Nucleated Red Blood Cells % (auto) 0.0, Anion Gap 9, Glomerular Filtration Rate 20.9L, Calcium Level 9.5, Total Bilirubin 0.5, Aspartate Amino Transf (AST/SGOT) 35, Alanine Aminotransferase (ALT/SGPT) 36, Alkaline Phosphatase 112, Total Protein 6.0L, Albumin 3.3, Albumin/Globulin Ratio 1.2 08/08/20 12:30: 08/08/20 13:14: CBC/BMP Laboratory Tests 08/08/20 05:46 Discharge Medications Scheduled Ascorbic Acid (Vitamin C) 500 Mg Tablet, 500 MG PO DAILY, (Reported) Calcium/Magnesium (Calcium with Magnesium Tab) 1 Each Tablet, 1 TAB PO DAILY, (Reported) Ferrous Sulfate (Ferrous Sulfate) 325 Mg Tablet, 325 MG PO BID Gluc Dahl/Chondro Dahl A/Vit C/Mn (Glucosamine Chondroitin Tab) 1 Each Tablet, 1 TAB PO DAILY, (Reported) Multivitamins (Thera M Plus Tablet) 1 Each Tablet, 1 TAB PO DAILY, (Reported) Ubidecarenone (Co Q-10) 100 Mg Capsule, 100 MG PO DAILY, (Reported) Scheduled PRN Acetaminophen (Acetaminophen) 325 Mg Tablet, 650 MG PO Q6HP PRN for PAIN OR FEVER Allergies Coded Allergies: No Known Allergies (Unverified , 08/04/20) Vani Montes MD Aug 08, 2020 17:07
[2020-08-09] MEDS ORDERED: ACYC400T PO ×2 (16:06)
[2020-08-09] MEDS ORDERED: CYCL1CAP2 PO (19:40)
[2020-08-10] MEDS ORDERED: DEXA4TA PO (13:49)
== END 2020-08-08 15:41 | disposition home or self-care (01) | DRG 824 ==
LOC: M ED INP 11:35 → M MSPAV 11:51
PROVIDERS: ADMIT Internal Medicine Nephrology; ATTEND Internal Medicine
PROC: 0QB23ZX Excision of Right Pelvic Bone, Percutaneous Approach, Diagnostic (ICD-10-PCS; principal; 2020-08-05 11:00)
DX: C90.00 Multiple myeloma not having achieved remission (principal); N17.9 Acute kidney failure, unspecified; C79.51 Secondary malignant neoplasm of bone; E87.2 Acidosis; M84.58XA Pathological fracture in neoplastic disease, other specified site, initial encounter for fracture; E78.5 Hyperlipidemia, unspecified; E83.52 Hypercalcemia; R73.03 Prediabetes; D50.9 Iron deficiency anemia, unspecified; D69.6 Thrombocytopenia, unspecified; Z20.822 Contact with and (suspected) exposure to COVID-19

== ENCOUNTER 2020-08-05 11:00 | Outpatient (RCR) | payer MEDICARE ==
[2020-08-08] MEDS ORDERED: FERR325T18 PO (12:23)
[2020-08-08] MEDS ORDERED: ACET1TAB55 PO (12:23)
[2020-08-09] MEDS ORDERED: ACYC400T PO ×2 (16:06)
[2020-08-09] MEDS ORDERED: CYCL1CAP2 PO (19:40)
[2020-08-10] MEDS ORDERED: DEXA4TA PO (13:49)
== END 2020-08-07 ==
LOC: M ONCR 11:00
PROVIDERS: ATTEND General Practice
DX: C79.51 Secondary malignant neoplasm of bone (principal)

== ENCOUNTER → 2020-08-10 | Outpatient (CLI) | payer MEDICARE ==
[~2020-08-10] MED LIST changes: +ACET1TAB55 PO; +ACYC400T PO; +CYCL1CAP2 PO; +DEXA4TA PO; +FERR325T18 PO; +ONDA8TAB10 PO; +PROC10TA4 PO
--- NOTE | 2020-08-10 15:51 | REP ---
INDICATION: MULTIPLE MYELOMA Multiple myeloma. COMPARISON: None. TECHNIQUE: Adult bone survey including AP views of the pelvis, bilateral humeri and femurs as well as AP/lateral views of the skull, and cervical, thoracic and lumbosacral spine. FINDINGS: Small innumerable lytic lesions are identified throughout the visualized spine, ribs, bilateral humeri, pelvis and bilateral femurs. Larger vague areas of lucency are suggested in the right humeral diaphysis measuring roughly 4 cm and 2.5 cm as well as within the proximal left humeral diaphysis measuring 2.4 cm. There is a lytic/blastic lesion involving the posterolateral aspect of the right 7th rib measuring roughly 3.6 x 2.0 cm. Cervical, thoracic, and lumbar spine also demonstrate moderate/early advanced multilevel degenerative changes with scattered lytic lesions. There is a compression fracture involving suspected T5 vertebral body with approximately 50% loss of vertebral body height. IMPRESSION: 1. Innumerable small lytic lesions throughout the skeletal structures as described above along with slightly larger lesions in the bilateral humeri and somewhat blastic lesion in the right 7th rib consistent with multiple myeloma. 2. Compression deformity at T5 vertebral body. 3. Further lytic lesions are better identified on recent CT dated 08/04/2020. <Electronically signed by Sd Brian > 08/10/20 [id number]
== END ==
LOC: M RAD 14:53
PROVIDERS: ATTEND Specialist
DX: C90.00 Multiple myeloma not having achieved remission (principal)

== ENCOUNTER 2020-08-19 13:14 | Outpatient (RCR) | payer MEDICARE ==
--- NOTE | 2020-08-08 23:54 | IPN ---
INPATIENT PROGRESS NOTE DATE: 08/08/2020 SUBJECTIVE: Patient seen and examined this morning at the bedside. He offers no complaints. He has been on I.V. fluid and has vigorous urine output, but renal function has stalled with creatinine around 3.1 for the past three days. He denies any shortness of breath, nausea, vomiting or diarrhea. He remains normocalcemic. OBJECTIVE: VITAL SIGNS: Temperature 98.0, pulse 78, respiratory rate 20, blood pressure 148/80, saturating 98% on room air. INTAKE AND OUTPUT: Intake yesterday was 1900. Urine output was 3.8 liters. Weight in the bed scale today is not recorded. GENERAL: Patient is seen awake, alert, oriented, comfortable, in no apparent distress. HEENT: Extraocular muscles are intact. Tongue is moist. Neck is supple. Jugular veins are not elevated. No carotid bruits. HEART: Sounds are regular S1, S2. No murmurs. There is no peripheral edema. LUNGS: Clear to auscultation bilaterally. No crackle, rale or rhonchus. ABDOMEN: Soft and nontender. There are bowel sounds. GENITOURINARY: The bladder is not distended. He is voiding to a urinal. EXTREMITIES: Negative for cyanosis, clubbing or edema. NEUROLOGIC: Oriented x3, interactive and at baseline mentation. LABORATORY STUDIES: Sodium 140, potassium 3.8, bicarbonate 19, chloride 112, BUN 29, creatinine 3.1. Calcium 9.5 with albumin 3.3. Hemoglobin 9.0, platelets 101,000. INPATIENT MEDICATIONS: Reviewed by myself and no changes as compared to the prior 24 hours. PROBLEMS: 1. 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 His right hip bone biopsy shows plasma cell myeloma. His creatinine has stalled at 3.1 the past three days and he needs to start treatment for his myeloma with hematology/oncology and further management is deferred to boat person. I have advised him to keep up with liberal hydration and to avoid NSAIDs. He will need to follow-up closely in the nephrology office. 2. Hypercalcemia related to multiple myeloma: Patient is status post XGEVA, I.V. fluids and Calcitonin. His corrected calcium is within normal range. At home he used to take a calcium supplement and I have advised him to stay off the same. 3. Anemia and thrombocytopenia in the setting of multiple myeloma: Further management will be deferred to the boat person. 4. Non-anion gap metabolic acidosis: It is mild, his serum bicarbonate is 19. It is secondary to myeloma kidney and acute renal failure. I will start bicarbonate supplementation in the outpatient setting if his bicarbonate decreases further, and he will follow-up in the office within one week with repeat labs.
[~2020-08-19 13:14] MED LIST changes: +CALC1CAP31 PO; +SODI650T PO
[2020-08-23] MEDS ORDERED: VELT1POW PO (13:18)
[2020-08-25] MEDS ORDERED: FERR1TAB8 PO (13:55)
[2020-08-25] MEDS ORDERED: ACET1TAB55 PO (13:55)
[2020-08-25] MEDS ORDERED: OYST1TAB PO (13:55)
[2020-08-30] MEDS ORDERED: ANTI2TAB16 PO (13:11)
[2020-08-30] MEDS ORDERED: CALC1CAP31 PO (13:11)
[2020-08-30] MEDS ORDERED: MI-A80CH PO (13:11)
[2020-08-30] MEDS ORDERED: CALCD50TA PO (13:11)
[2020-09-07] MEDS ORDERED: XANA0.25 PO (11:47)
[2020-09-09] MEDS ORDERED: MIRC50IN IJ (15:01)
[2020-09-09] MEDS ORDERED: DEXA4TA PO (15:26)
[2020-09-09] MEDS ORDERED: ECOT81TA5 PO (15:28)
[2020-09-09] MEDS ORDERED: COVI100V IM (15:28)
== END 2020-09-07 ==
LOC: M ONCR 13:14
PROVIDERS: ATTEND General Practice
DX: C90.00 Multiple myeloma not having achieved remission (principal); C79.51 Secondary malignant neoplasm of bone

== ENCOUNTER → 2020-08-24 | Outpatient (CLI) | payer MEDICARE ==
[~2020-08-24] MED LIST changes: +ACYC1TAB PO; -ACYC400T PO; +ANTI2TAB16 PO; +CALCD50TA PO; +COVI100V IM; +ECOT81TA5 PO; +FERR1TAB8 PO; +LIDOCAINE 1% MDV 20ML VIAL As Ordered ONE; +MI-A80CH PO; +MIRC50IN IJ; +OYST1TAB PO; +SODIUM BICARBONATE 8.4% INJ 50MEQ 50 ML VIAL As Ordered ONE; +VELT1POW PO; +XANA0.25 PO
[2020-08-24 11:15] VITALS: BP 139/80
--- NOTE | 2020-08-24 14:29 | REP ---
INDICATION: MULTIPLE MYELOMA. COMPARISON: None. TECHNIQUE: The procedure is performed by Genevieve Zeng [facility], under the direct supervision of Dr. Chamberlain. The risks and benefits of the procedure were explained to the patient and informed consent was obtained both orally and written. Directly prior to the start of the procedure, a formal timeout was done in the exam room. The left iliac crest was localized using CT guidance. Skin was prepped and draped in the usual sterile fashion. Twelve ml of 1% lidocaine 10 mg/ml was used as a local anesthetic. FINDINGS: Using CT guidance an 11 gauge bone biopsy system was inserted. Approximately 10 mL of marrow fluid was obtained. Patient tolerated the procedure well and there were no immediate complications. After the appropriate amount of monitored convalescence the patient was discharged from the department. IMPRESSION: CT-guided bone marrow aspiration. <Electronically signed by Genevieve Zeng > 08/24/20 [id number] <Electronically signed by Daquan Chamberlain > 08/24/20 [id number]
== END ==
LOC: M IRPRO 08:17
PROVIDERS: ATTEND Specialist
DX: C90.00 Multiple myeloma not having achieved remission (principal)

== ENCOUNTER 2020-08-25 10:32 | Inpatient (IN) | payer MEDICARE ==
[~2020-08-25] VITALS: Ht 167.6 cm; Wt 83.6 kg
[~2020-08-25 10:32] MED LIST changes: -ACYC1TAB PO; +ACYC400T PO; -ANTI2TAB16 PO; -CALCD50TA PO; -COVI100V IM; -ECOT81TA5 PO; -FERR1TAB8 PO; -LIDOCAINE 1% MDV 20ML VIAL As Ordered ONE; -MI-A80CH PO; -MIRC50IN IJ; -OYST1TAB PO; +PATIROMER SORBITEX CALCIUM 8.4 GM POWDER PACKET (VELTASSA) PO SCH; -SODIUM BICARBONATE 8.4% INJ 50MEQ 50 ML VIAL As Ordered ONE; -XANA0.25 PO
[2020-08-25] MEDS ORDERED: NS 1,000 ML IV SCH (12:20)
[2020-08-25] MEDS ORDERED: NS 1,000 ML IV ONE (12:20)
[2020-08-25 12:54] LABS: VENOUS BASE EXCESS -14.9 (-2.0-2.0); VENOUS HCO3 11.3 MEQ/L (23.0-27.0); VENOUS PARTIAL PRESSURE CO2 27.3 mmHg (38.0-50.0); VENOUS PARTIAL PRESSURE O2 66.1 mmHg (30.0-50.0); VENOUS PH 7.233 UNITS (7.330-7.430); VENOUS STANDARD HCO3 12.7 MEQ/L; VENOUS TOTAL CO2 12.1 MEQ/L (24.0-28.0)
[2020-08-25 13:05] LABS: HEMATOCRIT 23.7 % (42.0-52.0); HEMOGLOBIN 8.1 g/dl (13.5-17.5); MEAN CORPUSCULAR HEMOGLOBIN 32.4 pg (27.0-33.0); MEAN CORPUSCULAR HGB CONC 34.2 g/dl (32.0-36.5); MEAN CORPUSCULAR VOLUME 94.8 fl (80.0-96.0); PLATELET COUNT, AUTOMATED 118 10^3/uL (150-450); WHITE BLOOD COUNT 4.8 10^3/uL (4.0-10.0)
[2020-08-25 13:15] LABS: INR 1.11; PROTHROMBIN TIME 14.5 SECONDS (12.5-14.3)
--- NOTE | 2020-08-25 13:26 | REP ---
INDICATION: RENAL FAILURE R/O FLUID OVERLOAD. COMPARISON: Comparison chest CT study 04 August 2020. TECHNIQUE: Two views.. FINDINGS: There is linear density in the right base in the lower lobe distribution and possibly in the right middle lobe consistent with discoid atelectasis. Somewhat mottled appearance to the visualized skeletal structures in this patient with known myeloma. There are pathologic fractures in involving lesions of the right posterior 7th rib and the left posterolateral 7th and 8th ribs. Cardiomediastinal silhouette is unremarkable. Monitoring electrodes are seen. No pleural effusion is seen. IMPRESSION: Multiple lytic ribbon other bone lesions. Discoid atelectasis right lower lobe and right middle lobe distribution.. <Electronically signed by Daquan Chamberlain > 08/25/20 [id number]
[2020-08-25 13:31] LABS: LYMPHOCYTES 14 % (16-44); MONOCYTES 17 % (0-5); NEUTROPHILS 66 % (28-66); PLATELET ESTIMATE DECREASED (NORMAL)
[2020-08-25 13:36] LABS: ALBUMIN 3.7 GM/DL (3.2-5.2); BILIRUBIN,DIRECT 0.1 MG/DL (0.0-0.2); BILIRUBIN,TOTAL 0.3 MG/DL (0.2-1.0); MAGNESIUM LEVEL 2.2 MG/DL (1.8-2.4); TOTAL PROTEIN 6.7 GM/DL (6.4-8.2); URIC ACID 8.2 MG/DL (3.5-7.2)
[2020-08-25 13:50] LABS: ABG BASE EXCESS -14.1 (-2.0-2.0); ABG HCO3 11.1 MEQ/L (22.0-26.0); ABG O2 SATURATION 97.5 % (95.0-99.0); ABG PARTIAL PRESSURE CO2 23.9 mmHg (35.0-45.0); ABG PARTIAL PRESSURE O2 104.1 mmHg (75.0-100.0); ABG STANDARD HCO3 13.3 MEQ/L (22.0-26.0); ABG TOTAL CO2 11.8 MEQ/L (23.0-31.0); ABG pH (ARTERIAL) 7.284 UNITS (7.350-7.450)
[2020-08-25] MEDS ORDERED: OYST1TAB PO (13:55)
[2020-08-25] MEDS ORDERED: ACET1TAB55 PO (13:55)
[2020-08-25] MEDS ORDERED: FERR1TAB8 PO (13:55)
--- NOTE | 2020-08-25 13:59 | REP ---
INDICATION: renal failure. COMPARISON: Abdomen/pelvis CT dated 08/04/2020. TECHNIQUE: Multiple ultrasonographic images of the kidneys including Doppler ultrasound. FINDINGS: The right kidney measures 12.0 x 4.6 x 4.9 cm. Left kidney measures 12.2 x 5.1 x 6.9 cm. The kidneys are normal size. Renal cortical echogenicity is normal bilaterally. There is no hydronephrosis or hydroureter on the right or the left. No renal calculi are identified. No solid or cystic renal masses are identified. Bladder: With color Doppler evaluation there are bilateral ureteral jets into the bladder. The prostate measures 5.0 x 4.8 x 6.0 cm and is enlarged. IMPRESSION: Essentially negative bilateral renal ultrasound. There are bilateral ureteral jets into the bladder. There is no hydronephrosis. The prostate is enlarged. <Electronically signed by Cuauhtemoc Eubanks > 08/25/20 [id number]
[2020-08-25 14:26] LABS: RSV AMPLIFICATION NEGATIVE (NEGATIVE)
[2020-08-25 15:24] VITALS: BP 139/76
[2020-08-25] MEDS ORDERED: ACETAMINOPHEN TAB 650MG DOSE (2X325MG) PO PRN (16:15)
[2020-08-25] MEDS ORDERED: PROCHLORPERAZINE 5 MG TAB (S0183) PO PRN (16:15)
[2020-08-25] MEDS: SODIUM BICARBONATE 150 MEQ in STERILE WATER LITER BAG 1,000 ML IV SCH (16:41)
--- NOTE | 2020-08-25 16:51 | ECGEPIP ---
[facility] - ED Test Date: 2020-08-25 Pat Name: XAVIER EVY Department: Room: [place] [address] Gender: Male Laboratory Technician: sandro : 1950 Requested By: Marie Hunt Order Number: [id number] Reading MD: Xavier Bowers Measurements Intervals [place] Rate: 80 P: 54 W[place]: 204 QRS: 63 QRSD: 86 T: 50 QT: 384 QTc: 442 Interpretive Statements Normal sinus rhythm Comparison tracing not on file Electronically Signed on 08-25-2020 16:51:02 EDT by Xavier Bowers
--- NOTE | 2020-08-25 17:38 | HPEPDOC ---
[facility] Medical History & Physical Date of Admission Aug 25, 2020 Date of Service: Aug 25, 2020 History and Physical History and physical dictated job #[id number] If note is needed urgently, pls call hypertype to stat transcribe [phone] Vital Signs Vital Signs Date Time Temp Pulse Resp B/P (MAP) Pulse Ox O2 Delivery O2 Flow Rate FiO2 08/25/20 15:24 98.1 88 18 139/76 (97) 98 Room Air Laboratory Data Labs 24H Laboratory Tests 2 08/25/20 12:37: Neutrophils (%) (Auto) , Nucleated Red Blood Cells % (auto) 0.0, Neutrophils 66, Band Neutrophils 3, Lymphocytes (Manual) 14L, Monocytes (Manual) 17H, Platelet Estimate DECREASED, Prothrombin Time 14.5H, Prothromb Time International Ratio 1.11, Osmolality 290, Uric Acid 8.2H, Magnesium Level 2.2, Total Bilirubin 0.3#, Direct Bilirubin 0.1, Aspartate Amino Transf (AST/SGOT) 18, Alanine Aminotransferase (ALT/SGPT) 34, Alkaline Phosphatase 128H, Total Creatine Kinase 295, Total Protein 6.7, Albumin 3.7, Albumin/Globulin Ratio 1.2, Lipase 501H 08/25/20 12:41: Blood Gas Bicarbonate Standard 12.7, Venous Blood pH 7.233L, Venous Blood Partial Pressure CO2 27.3L, Venous Blood Partial Pressure O2 66.1H, Venous Blood Total Carbon Dioxide 12.1L, Venous Blood HCO3 11.3L, Venous Blood Oxygen Saturation 91.0H, Venous Blood Base Excess -14.9L, Whole Blood Ionized Calcium 3.9L 08/25/20 13:27: Blood Gas Bicarbonate Standard 13.3L, Arterial Blood pH 7.284L, Arterial Blood Partial Pressure CO2 23.9L, Arterial Blood Partial Pressure O2 104.1H, Arterial Blood Total CO2 11.8L, Arterial Blood HCO3 11.1L, Arterial Blood Base Excess -1 4.1L, Arterial Blood Oxygen Saturation 97.5 08/25/20 13:38: Coronavirus (COVID-19)(PCR) NEGATIVE, Influenza Type A (RT-PCR) NEGATIVE, Influenza Type B (RT-PCR) NEGATIVE, Respiratory Syncytial Virus (PCR) NEGATIVE 08/25/20 14:54: POC Glucose (Misc Panel) 98, POC Sodium (Misc Panel) 132L, POC Potassium (Misc Panel) 5.9H, POC Chloride (Misc Panel) 110H, POC Total CO2 (Misc Panel) 13.0L, POC Blood Urea Nitrogen (Misc Panel 70H, POC Ionized Calcium (Misc Panel) 3.5*L, POC Creatinine (Misc Panel) 5.0H, POC Hematocrit (Misc Panel) 22.0L CBC/BMP Laboratory Tests 08/25/20 12:37 Home Medications Scheduled Acyclovir (Acyclovir) 400 Mg Tablet, 1 TAB PO BID Ascorbic Acid (Vitamin C) 500 Mg Tablet, 500 MG PO DAILY Calcitriol (Calcitriol) 0.25 Mcg Capsule, 0.25 MCG PO QWEEK MONDAYS Calcium Carbonate (Calcium) 500 Mg Tablet, 500 MG PO DAILY Cyclophosphamide (Cyclophosphamide) 50 Mg Capsule, 500 MG PO Days 1,8,15,22 for multiple myeloma cyclophosphamide 10 caps po on days 1,8,15,22 of 28 days cycle Dexamethasone (Dexamethasone) 4 Mg Tablet, 10 TAB PO DAILY Take 10 tabs on Days 1,8,15, and 22. Ferrous Sulfate (Ferrous Sulfate) 325 Mg Tablet, 325 MG PO BID Gluc Dahl/Chondro Dahl A/Vit C/Mn (Glucosamine Chondroitin Tab) 1 Each Tablet, 1 TAB PO DAILY Multivitamins (Thera M Plus Tablet) 1 Each Tablet, 1 TAB PO DAILY Ondansetron HCl (Ondansetron HCl) 8 Mg Tablet, 8 MG PO TID for nausea / vomitting Patiromer Calcium Sorbitex (Veltassa) 8.4 Gm Powd.pack, 8.4 GM PO 2XW NO SPECIFIC DAYS Sodium Bicarbonate (Sodium Bicarbonate) 650 Mg Tablet, 650 MG PO BID HAS NOT BEEN TAKING DUE TO CAUSING GASTRO ISSUES Ubidecarenone (Co Q-10) 100 Mg Capsule, 100 MG PO DAILY Scheduled PRN Acetaminophen (Acetaminophen) 325 Mg Tablet, 650 MG PO Q6H PRN for PAIN Prochlorperazine Maleate (Prochlorperazine Maleate) 10 Mg Tablet, 10 MG PO Q6H P RN for NAUSEA Allergies Coded Allergies: No Known Allergies (Unverified , 08/04/20) A-FIB/CHADSVASC A-FIB History Current/History of A-Fib/PAF?: No Current PO Anticoag Therapy: No Age/Risk Factor Scoring CHADSVASC: CHADSVASC Response (Comments) Value Age Risk Factor Age 65-74 years old 1 Gender Risk Factor Male 0 Hx of CHF No 0 Hx of HTN Yes 1 Hx of Stroke/TIA/or VTE No 0 Hx of Diabetes No 0 Hx of Vascular Disease No 0 Total 2 Treatment Treatment ordered: NONE RICHARD SPRAGUE MD Aug 25, 2020 17:38
[2020-08-25 18:37] LABS: CALCIUM LEVEL 6.6 MG/DL (8.8-10.2); CREATININE FOR GFR 4.68 MG/DL (0.70-1.30); GLOMERULAR FILTRATION RATE 13.3 (>49); POTASSIUM SERUM 5.3 MEQ/L (3.5-5.1)
[2020-08-25] MEDS ORDERED: CALCIUM GLUCONATE 1,000 MG in D5W MINI-BAG PLUS 100 ML IV ONE ×2 (21:00→23:00)
[2020-08-25] MEDS: ONDANSETRON 4 MG TAB PO SCH (21:23)
[2020-08-25] MEDS: CALCIUM/VITAMIN D 500 MG TAB PO SCH (21:23)
[2020-08-25] MEDS: FERROUS SULFATE 325MG TAB PO SCH (21:23)
[2020-08-25 22:00] VITALS: BP 136/64
--- NOTE | 2020-08-25 23:02 | HPE ---
HISTORY AND PHYSICAL DATE OF ADMISSION: 08/25/2020 CHIEF COMPLAINT: "I was sent by Dr. Marshall to be admitted to the hospital because of abnormal blood test, diarrhea, dehydration." HISTORY OF PRESENT ILLNESS: This is a 70-year-old full code with recent diagnosis of multiple myeloma with extensive lytic lesions in the bones, seen at the [facility] on August 04, 2020 because of right hip pain. After falling April 29, patient was found to have a high calcium level of 13.8, creatinine of 3.9. Patient was admitted to the hospital from August 03 to August 08 when he was diagnosed with multiple myeloma, serum protein electrophoresis, had M spikes. Patient was discharged and follows with Dr. Gleason at the [facility] and started on Velcade and radiation. Patient was also given Cyclophosphamide, Dexamethasone and radiation. Patient said that he had radiation completed last week and since then, he has been having 2-3 bouts of diarrhea during the day. He denies any lightheadedness, dizziness, weakness or fatigue. He has not noted any concentrated urine and since his urine has been clear or light yellow at home, he says he drinks at least 6 to 7 cups of liquids daily. He went to Dr. Marshall's office today, nephrology, for routine blood testing and follow-up of his multiple myeloma and renal failure, and was found to have elevated creatinine now at stage 4 as well as electrolyte abnormalities with hyperkalemia and metabolic acidosis. Hospitalist was called to admit the patient for worsening renal dysfunction secondary to dehydration, most likely due to radiation or neuritis and related to chemotherapy. PAST MEDICAL HISTORY: Multiple myeloma, hyperlipidemia, trauma to the right hip; status post fallApril 2020. PAST SURGICAL HISTORY: Patient had a port placed. SOCIAL HISTORY: Retired from [employer]. No alcohol or recreational drug use. Denies any cigarette use. Patient is a full code. is the healthcare proxy. ALLERGIES: No known drug allergies. HOME MEDICATIONS: 1. Acyclovir 400 mg b.i.d. 2. Cyclophosphamide chemotherapy. 3. Dexamethasone 10 mg daily. 4. Prochlorperazine 10 mg every 6 hours as needed. 5. Zofran 8 mg t.i.d. as needed. 6. Coenzyme Q 100 mg daily. 7. Multivitamin one tablet daily. 8. Vitamin C 500 mg daily. 9. Glucosamine Chondroitin one tablet daily. 10.Sodium bicarb 650 p.o. b.i.d. 11.Calcitriol 0.25 mcg weekly. 12.Veltassa 8.4 grams twice a week. 13.Calcium carbonate 500 mg b.i.d. REVIEW OF SYSTEMS: Per HPI; 12-point system otherwise negative. PHYSICAL EXAMINATION: VITAL SIGNS: Temperature 98.1, pulse 88, respiratory rate 18, blood pressure 139/76, 98% on room air. GENERAL: Patient is awake, alert, oriented x3, answering questions appropriately. No respiratory distress. HEENT: Moist mucous membranes. No JVD. No thyromegaly. LUNGS: Clear to auscultation. No wheezing, rales or rhonchi. HEART: S1, S2, sinus rhythm. No murmurs, rubs or gallops. ABDOMEN: Soft, nontender, non-distended. Positive bowel sounds x4 quadrants. No rebound or guarding. EXTREMITIES: No cyanosis, clubbing or pitting edema. LABORATORY DATA: White count 4.8, hemoglobin 8.1, hematocrit 23.7, platelet count 118,000. Sodium 132, potassium 5.9, chloride 110, bicarb 13, BUN 70, creatinine 5. Ionized calcium 3.5. Magnesium 2.2. Total bilirubin 0.3, direct bilirubin 0.1. AST 18, ALT 34, alkaline phosphatase 128. Total CK 295, total protein 6.7, albumin 3.7, lipase 501. Uric acid 8.2. calcium 3.9. INR 1.11. EKG: Sinus rhythm, ventricular rate of 80. No peaked T waves or sinus waves despite hyperkalemia. ASSESSMENT AND PLAN: This is a 70-year-old male with history of hypertension, hyperlipidemia, right hip traumatic injury, hypercalcemia, recent diagnosis of multiple myeloma undergoing chemotherapy and radiation, found to be dehydrated secondary to episodes of diarrhea, which is chemotherapy and radiation induced with electrolyte abnormalities. Hospitalist was asked to admit the patient. IMPRESSION: 1. Acute on chronic renal failure stage 4 secondary to dehydration in the setting of chemo & possible radiation-induced diarrhea, worsening multiple myeloma admitted as an inpatient for two midnights, place on a renal diet, I.V. fluids with bicarbonate with every 6 hourly BMP, ionized calcium, magnesium checks. Metal Cut Off Saw Operator has been consulted. Straight I's and O's, daily weights, and monitor patient's urine output. 2. Multiple myeloma: Currently undergoing Cyclophosphamide, on chronic Dexamethasone. Immunosuppressive therapy was Acyclovir. At this time, everything will be renally dosed. Nephrology has been consulted. Outpatient follow-up with Dr. Gleason, medical oncologist at the [facility]. 3. Hyperkalemia/metabolic acidosis/hyponatremia: Currently being managed with I.V. fluid hydration with bicarbonate drip with every 6 hourly metabolic panel and electrolyte monitoring. Nephrology has been consulted to help in adjusting fluids. 4. Anemia of chronic disease due to multiple myeloma: No acute indication for RBC transfusion. Patient has no GI bleed. If hemoglobin is less than 8 or patient has symptoms of anemia, will transfuse 2 units of RBC's. 5. Thrombocytopenia: Monitor patient's electrolytes, compression stockings for now for DVT prophylaxis. 6. Hyperlipidemia: Stable. Patient is a full code. MTDD
[2020-08-26 00:22] LABS: CALCIUM LEVEL 7.1 MG/DL (8.8-10.2); CREATININE FOR GFR 4.81 MG/DL (0.70-1.30); GLOMERULAR FILTRATION RATE 12.9 (>49); MAGNESIUM LEVEL 1.9 MG/DL (1.8-2.4); POTASSIUM SERUM 5.3 MEQ/L (3.5-5.1)
[2020-08-26] MEDS: SIMETHICONE 80MG CHEW TAB PO PRN ×2 (01:18→20:21)
[2020-08-26 06:00] VITALS: BP 135/77
[2020-08-26 06:06] LABS: HEMATOCRIT 23.2 % (42.0-52.0); HEMOGLOBIN 8.1 g/dl (13.5-17.5); MEAN CORPUSCULAR HEMOGLOBIN 32.1 pg (27.0-33.0); MEAN CORPUSCULAR HGB CONC 34.9 g/dl (32.0-36.5); MEAN CORPUSCULAR VOLUME 92.1 fl (80.0-96.0); PLATELET COUNT, AUTOMATED 120 10^3/uL (150-450); RED BLOOD COUNT 2.52 10^6/uL (4.30-6.10); WHITE BLOOD COUNT 2.8 10^3/uL (4.0-10.0)
[2020-08-26 06:23] LABS: APPEARANCE, URINE CLEAR (CLEAR); BACTERIA, URINE AUTO NEGATIVE (NEGATIVE); BILIRUBIN, URINE AUTO NEGATIVE (NEGATIVE); BLOOD, URINE BLOOD 1+ (NEGATIVE); COLOR, URINE STRAW (YELLOW); GLUCOSE, URINE (UA) AUTO NEGATIVE (NEGATIVE); KETONE, URINE AUTO NEGATIVE (NEGATIVE); LEUKOCYTE ESTERASE, URINE AUTO NEGATIVE (NEGATIVE); MUCUS, URINE SMALL (NEGATIVE); NITRITE, URINE AUTO NEGATIVE (NEGATIVE); PROTEIN, URINE AUTO 1+ mg/dL (NEGATIVE); RBC, URINE AUTO 2 /HPF (0-3); SQUAMOUS EPITHELIAL CELL UR AU 0 /HPF (0-6); UROBILINOGEN, URINE AUTO 0.2 mg/dL (0.0-2.0); WBC, URINE AUTO 1 /HPF (0-3)
[2020-08-26 06:24] LABS: CALCIUM LEVEL 6.7 MG/DL (8.8-10.2); CREATININE FOR GFR 4.64 MG/DL (0.70-1.30); GLOMERULAR FILTRATION RATE 13.4 (>49); MAGNESIUM LEVEL 1.8 MG/DL (1.8-2.4); POTASSIUM SERUM 5.2 MEQ/L (3.5-5.1)
[2020-08-26 06:31] LABS: EOSINOPHILS 1 % (0-3); LYMPHOCYTES 5 % (16-44); MONOCYTES 6 % (0-5); NEUTROPHILS 81 % (28-66)
[2020-08-26 06:32] LABS: ANISOCYTOSIS 2+; OVALOCYTES 1+; PLATELET ESTIMATE NORMAL (NORMAL)
[2020-08-26 06:32] LABS: CREATININE,RANDOM URINE 45.3 MG/DL; POTASSIUM RANDOM URINE 28.6 MEQ/L; SODIUM,RANDOM URINE 48 MEQ/L
[2020-08-26] MEDS: SODIUM BICARBONATE 150 MEQ in STERILE WATER LITER BAG 1,000 ML IV SCH ×2 (07:15→07:58)
[2020-08-26] MEDS ORDERED: SIMETHICONE 80MG CHEW TAB PO ONE (08:15)
[2020-08-26] MEDS ORDERED: CALCIUM GLUCONATE 1,000 MG in D5W MINI-BAG PLUS 100 ML IV ONE ×3 (08:30→22:00)
[2020-08-26 08:44] LABS: OSMOLALITY URINE 325 MOSM/KG (50-1400)
[2020-08-26] MEDS: FERROUS SULFATE 325MG TAB PO SCH (08:59)
[2020-08-26] MEDS: CALCIUM/VITAMIN D 500 MG TAB PO SCH ×2 (08:59→20:21)
[2020-08-26] MEDS: ONDANSETRON 4 MG TAB PO SCH ×3 (08:59→20:22)
[2020-08-26] MEDS: MULTIVITAMINS/MINERALS THERAP 1 TAB PO SCH (08:59)
[2020-08-26] MEDS: CALCITRIOL 0.25 MCG CAP (S0169) PO SCH (08:59)
[2020-08-26] MEDS ORDERED: PATIROMER SORBITEX CALCIUM 8.4 GM POWDER PACKET (VELTASSA) PO SCH (09:00)
[2020-08-26] MEDS ORDERED: CALCIUM CARBONATE 500 MG CHEW U/D PO SCH (09:00)
[2020-08-26] MEDS ORDERED: ASCORBIC ACID 500 MG TAB PO SCH (09:00)
[2020-08-26] MEDS ORDERED: OYSTER SHELL CALCIUM 500 MG TAB PO SCH (09:00)
[2020-08-26] MEDS ORDERED: MAG SULF 1GM/100ML (MAG RUN) 1 GM in IV 1 EA IV ONE (09:30)
--- NOTE | 2020-08-26 10:02 | IPNPDOC ---
Date Seen The patient was seen on 08/26/20. Progress Note Hospitalist progress note dictated job # [id number]. If note is needed urgently, pls call hypertype at [phone] for stat director game. VS, I&O, 24H, Fishbone Vital Signs/I&O Vital Signs Date Time Temp Pulse Resp B/P (MAP) Pulse Ox O2 Delivery O2 Flow Rate FiO2 08/26/20 06:00 98.0 88 18 135/77 (96) 98 Room Air I&O- Last 24 Hours up to 6 AM 08/26/20 06:00 Intake Total 4750 ml Output Total 1050 ml Balance 3700 ml Laboratory Data 24H LABS Laboratory Tests 2 08/25/20 12:37: Neutrophils (%) (Auto) , Nucleated Red Blood Cells % (auto) 0.0, Neutrophils 66, Band Neutrophils 3, Lymphocytes (Manual) 14L, Monocytes (Manual) 17H, Platelet E stimate DECREASED, Prothrombin Time 14.5H, Prothromb Time International Ratio 1.11, Osmolality 290, Uric Acid 8.2H, Magnesium Level 2.2, Total Bilirubin 0.3#, Direct Bilirubin 0.1, Aspartate Amino Transf (AST/SGOT) 18, Alanine Aminotransferase (ALT/SGPT) 34, Alkaline Phosphatase 128H, Total Creatine Kinase 295, Total Protein 6.7, Albumin 3.7, Albumin/Globulin Ratio 1.2, Lipase 501H 08/25/20 12:41: Blood Gas Bicarbonate Standard 12.7, Venous Blood pH 7.233L, Venous Blood Part ial Pressure CO2 27.3L, Venous Blood Partial Pressure O2 66.1H, Venous Blood Total Carbon Dioxide 12.1L, Venous Blood HCO3 11.3L, Venous Blood Oxygen Saturation 91.0H, Venous Blood Base Excess -14.9L, Whole Blood Ionized Calcium 3.9L 08/25/20 13:27: Blood Gas Bicarbonate Standard 13.3L, Arterial Blood pH 7.284L, Arterial Blood Partial Pressure CO2 23.9L, Arterial Blood Partial Pressure O2 104.1H, Arterial Blood Total CO2 11.8L, Arterial Blood HCO3 11.1L, Arterial Blood Base Excess - 14.1L, Arterial Blood Oxygen Saturation 97.5 08/25/20 13:38: Coronavirus (COVID-19)(PCR) NEGATIVE, Influenza Type A (RT-PCR) NEGATIVE, Influenza Type B (RT-PCR) NEGATIVE, Respiratory Syncytial Virus (PCR) NEGATIVE 08/25/20 14:54: POC Glucose (Misc Panel) 98, POC Sodium (Misc Panel) 132L, POC Potassium (Misc Panel) 5.9H, POC Chloride (Misc Panel) 110H, POC Total CO2 (Misc Panel) 13.0L, POC Blood Urea Nitrogen (Misc Panel 70H, POC Ionized Calcium (Misc Panel) 3.5*L, POC Creatinine (Misc Panel) 5.0H, POC Hematocrit (Misc Panel) 22.0L 08/25/20 17:53: Anion Gap 9, Glomerular Filtration Rate 13.3L, Calcium Level 6.6#L, Whole Blood Ionized Calcium 3.8L, Phosphorus Level 4.0, Magnesium Level 2.0 08/25/20 23:47: Anion Gap 11, Glomerular Filtration Rate 12.9L, Calcium Level 7.1L, Whole Blood Ionized Calcium 3.9L, Magnesium Level 1.9 08/26/20 05:32: Anion Gap 11, Glomerular Filtration Rate 13.4L, Calcium Level 6.7L, Whole Blood Ionized Calcium 3.8L, Magnesium Level 1.8, Neutrophils (%) (Auto) , Nucleated Red Blood Cells % (auto) 0.0, Neutrophils 81H, Band Neutrophils 7, Lymphocytes (Manual) 5L, Monocytes (Manual) 6H, Eosinophils (Manual) 1, Anisocytosis 2+, Ovalocytes 1+, Platelet Estimate NORMAL 08/26/20 05:58: Urine Color STRAW, Urine Appearance CLEAR, Urine pH 6.0, Urine Specific [place] 1.010, Urine Protein 1+H, Urine Glucose (Auto)(UA) NEGATIVE, Urine Ketones (Auto) NEGATIVE, Urine Blood 1+H, Urine Nitrite NEGATIVE, Urine Bilirubin NEGATIVE, Urine Urobilinogen 0.2, Urine Leukocyte Esterase (Auto) NEGATIVE, Urine WBC (Auto) 1, Urine RBC (Auto) 2, Urine Hyaline Casts (Auto) 0, Urine Bacteria (Auto) NEGATIVE, Urine Squamous Epithelial Cells 0, Urine Mucus (Auto) SMALL, Urine Sperm (Auto) , Urine Osmolality 325, Urine Random Creatinine 45.3, Urine Random Sodium 48, Urine Random Potassium 28.6 CBC/BMP Laboratory Tests 08/25/20 12:37 08/25/20 17:53 08/25/20 23:47 08/26/20 05:32 RICHARD SPRAGUE MD Aug 26, 2020 10:02
[2020-08-26] MEDS ORDERED: BICITRA 30ML SOLN UDC PO SCH (13:00)
--- NOTE | 2020-08-26 13:11 | CR.PDOC ---
General Date of Consultation: Aug 26, [address] Ramires REASON FOR CONSULTATION: PermCath placement. HISTORY OF PRESENT ILLNESS: The patient is a 70-year-old male with history of multiple myeloma admitted with acute on chronic renal failure stage IV secondary to dehydration in the setting of chemotherapy and possibly radiation induced diarrhea. Vascular surgery was consulted for PermCath placement. ALLERGIES: Please see below. HOME MEDICATIONS: Please see below. PAST MEDICAL HISTORY: Multiple myeloma Hypercalcemia Anemia of chronic disease Thrombocytopenia Dyslipidemia PAST SURGICAL HISTORY: The patient denies any prior surgeries SOCIAL HISTORY: Smoker PHYSICAL EXAMINATION: VITAL SIGNS: Please see below. GENERAL APPEARANCE: NAD HEENT: MMM RESPIRATORY: No wheezing CARDIOVASCULAR: Rate and rhythm ABDOMEN: Soft, nontender. NEUROLOGICAL: Alert and oriented 3 ASSESSMENT/PLAN: Acute on chronic renal failure. Vascular surgery consulted for PermCath placement. The procedure, risks, benefits and alternatives are reviewed with the patient. Informed consent is obtained and placed in the chart. Plan as per Dr. Ramires is for PermCath placement later this afternoon. Vital Signs/I&O Vital Signs Date Time Temp Pulse Resp B/P (MAP) Pulse Ox O2 Delivery O2 Flow Rate FiO2 08/26/20 06:00 98.0 88 18 135/77 (96) 98 Room Air l I&O- Last 24 Hours up to 6 AM 08/26/20 05:59 Intake Total 4050 ml Output Total 900 ml Balance 3150 ml Laboratory Data Labs 24H Laboratory Tests 2 08/25/20 13:27: Blood Gas Bicarbonate Standard 13.3L, Arterial Blood pH 7.284L, Arterial Blood Partial Pressure CO2 23.9L, Arterial Blood Partial Pressure O2 104.1H, Arterial Blood Total CO2 11.8L, Arterial Blood HCO3 11.1L, Arterial Blood Base Excess - 14.1L, Arterial Blood Oxygen Saturation 97.5 08/25/20 13:38: Coronavirus (COVID-19)(PCR) NEGATIVE, Influenza Type A (RT-PCR) NEGATIVE, Influenza Type B (RT-PCR) NEGATIVE, Respiratory Syncytial Virus (PCR) NEGATIVE 08/25/20 14:54: POC Glucose (Misc Panel) 98, POC Sodium (Misc Panel) 132L, POC Potassium (Misc Panel) 5.9H, POC Chloride (Misc Panel) 110H, POC Total CO2 (Misc Panel) 13.0L, POC Blood Urea Nitrogen (Misc Panel 70H, POC Ionized Calcium (Misc Panel) 3.5*L, POC Creatinine (Misc Panel) 5.0H, POC Hematocrit (Misc Panel) 22.0L 08/25/20 17:53: Anion Gap 9, Glomerular Filtration Rate 13.3L, Calcium Level 6.6#L, Whole Blood Ionized Calcium 3.8L, Phosphorus Level 4.0, Magnesium Level 2.0 08/25/20 23:47: Anion Gap 11, Glomerular Filtration Rate 12.9L, Calcium Level 7.1L, Whole Blood Ionized Calcium 3.9L, Magnesium Level 1.9 08/26/20 05:32: Anion Gap 11, Glomerular Filtration Rate 13.4L, Calcium Level 6.7L, Whole Blood Ionized Calcium 3.8L, Magnesium Level 1.8, Neutrophils (%) (Auto) , Nucleated Red Blood Cells % (auto) 0.0, Neutrophils 81H, Band Neutrophils 7, Lymphocytes (Manual) 5L, Monocytes (Manual) 6H, Eosinophils (Manual) 1, Anisocytosis 2+, Ovalocytes 1+, Platelet Estimate NORMAL 08/26/20 05:58: Urine Color STRAW, Urine Appearance CLEAR, Urine pH 6.0, Urine Specific [place] 1.010, Urine Protein 1+H, Urine Glucose (Auto)(UA) NEGATIVE, Urine Ketones (Auto) NEGATIVE, Urine Blood 1+H, Urine Nitrite NEGATIVE, Urine Bilirubin NEGATIVE, Urine Urobilinogen 0.2, Urine Leukocyte Esterase (Auto) NEGATIVE, Urine WBC (Auto) 1, Urine RBC (Auto) 2, Urine Hyaline Casts (Auto) 0, Urine Bacteria (Auto) NEGATIVE, Urine Squamous Epithelial Cells 0, Urine Mucus (Auto) SMALL, Urine Sperm (Auto) , Urine Osmolality 325, Urine Random Creatinine 45.3, Urine Random Sodium 48, Urine Random Potassium 28.6 08/26/20 12:38: CBC/BMP Laboratory Tests 08/25/20 17:53 08/25/20 23:47 08/26/20 05:32 Allergies Coded Allergies: No Known Allergies (Unverified , 08/04/20) Home Medications Scheduled Acyclovir (Acyclovir) 400 Mg Tablet, 1 TAB PO BID, #60 Ascorbic Acid (Vitamin C) 500 Mg Tablet, 500 MG PO DAILY, (Reported) Calcitriol (Calcitriol) 0.25 Mcg Capsule, 0.25 MCG PO QWEEK, (Reported) MONDAYS Calcium Carbonate (Calcium) 500 Mg Tablet, 500 MG PO DAILY, (Reported) Cyclophosphamide (Cyclophosphamide) 50 Mg Capsule, 500 MG PO Days 1,8,15,22 for multiple myeloma for 4 Days, #40 cyclophosphamide 10 caps po on days 1,8,15,22 of 28 days cycle Dexamethasone (Dexamethasone) 4 Mg Tablet, 10 TAB PO DAILY for 30 Days, #40 Take 10 tabs on Days 1,8,15, and 22. Ferrous Sulfate (Ferrous Sulfate) 325 Mg Tablet, 325 MG PO BID, (Reported) Gluc Dahl/Chondro Dahl A/Vit C/Mn (Glucosamine Chondroitin Tab) 1 Each Tablet, 1 TAB PO DAILY, (Reported) Multivitamins (Thera M Plus Tablet) 1 Each Tablet, 1 TAB PO DAILY, (Reported) Ondansetron HCl (Ondansetron HCl) 8 Mg Tablet, 8 MG PO TID for nausea / vomitting for 10 Days, #30 Patiromer Calcium Sorbitex (Veltassa) 8.4 Gm Powd.pack, 8.4 GM PO 2XW, (Reported) NO SPECIFIC DAYS Sodium Bicarbonate (Sodium Bicarbonate) 650 Mg Tablet, 650 MG PO BID, (Reported) HAS NOT BEEN TAKING DUE TO CAUSING GASTRO ISSUES Ubidecarenone (Co Q-10) 100 Mg Capsule, 100 MG PO DAILY, (Reported) Scheduled PRN Acetaminophen (Acetaminophen) 325 Mg Tablet, 650 MG PO Q6H PRN for PAIN, (Reported) Prochlorperazine Maleate (Prochlorperazine Maleate) 10 Mg Tablet, 10 MG PO Q6H PRN for NAUSEA for 15 Days, #60 Ana Telles Aug 26, 2020 12:50
--- NOTE | 2020-08-26 13:12 | IPN ---
PROGRESS NOTE DATE: 08/26/2020 Patient is seen and examined at the bedside. Chart has been reviewed. Overnight, patient complains of persistent diarrhea, already had six bowel movements since admission from yesterday to this morning. He denies any shortness of breath, lightheadedness, dizziness, or fatigue due to diarrhea but did not sleep well last night. Denies any chest pain, pressure, tightness, shortness of breath, lightheadedness, or dizziness. Denies bright red blood per rectum, melena, black tarry stools. Denies any muscle cramping. His bowel movements have been watery, non-bloody, non-mucusy, non-explosive. No nausea or vomiting, tolerating his diet well. Abdominal pain and hiccups are improved after he has bowel movements. OBJECTIVE: PHYSICAL EXAMINATION: Vital signs: Temperature 98, pulse 88, respiratory rate 18, blood pressure 135/77, 98% on room air. Generally: Awake, alert, oriented to person, place, and time. Nonicteric, slight pallor, no icterus or jaundice. Speaks in full sentences without conversational dyspnea. Moist mucous membranes. Poor dentition. No jugular venous distension (JVD), thyromegaly, or cervical lymphadenopathy on HEENT exam. No carotid bruit. Lungs are diminished, fine crepitations at the bases. Heart: S1, S2, sinus rhythm. No murmurs, rubs, or gallops. Abdomen is obese, soft, nontender, nondistended. Positive bowel sounds. Extremities: Positive pitting edema. Intake and output overnight: Intake 3490, output of 800, positive 2690. Current weight is 80.4 kg, from previous weight of 80.1 kg on admission. Intake from 08/26/2020 at midnight was 1500, output of only 250. LABORATORY DATA: White count 2.8, hemoglobin 8.1, hematocrit 23, platelet count 120, sodium 132, potassium 5.2, chloride 106, bicarbonate 15, BUN 63, creatinine 4.64, glucose of 103, magnesium of 1.8. IMAGING STUDY: Chest x-ray 08/25/2020: Multiple lytic ribbon, other bone lesion, discoid atelectasis in the right lower lobe and right middle lobe distribution. ASSESSMENT AND PLAN: This is a 70-year-old male with recent diagnosis of multiple myeloma currently undergoing chemotherapy and radiation, developed significant diarrhea, electrolyte abnormalities, sent from Dr. Marshall's office, his land department head, to the emergency room for IV fluid hydration and correction of electrolytes. Patient has the following current issues: IMPRESSION: 1. Chemotherapy, radiation-induced diarrhea with acute on chronic kidney failure, now at stage IV renal failure. Appears to be oliguric with urine output of only 500 overnight. Continue to have persistent diarrhea. Patient's gastrointestinal (GI) panel, Clostridium (C) difficile has been sent. Currently still has six bowel movements daily with electrolyte abnormalities such as metabolic acidosis, most likely due also to worsening renal failure from the myeloma. Patient's electrolytes have been optimized. Ionized calcium while the patient is on bicarbonate has been low at 3.8, supplemented with IV calcium gluconate and magnesium sulfate intravenously. 2. Metabolic acidosis, hyperkalemia, electrolyte abnormalities, hypomagnesemia secondary to worsening renal failure from dehydration due to hypovolemia from diarrhea as well as worsening multiple myeloma despite chemotherapy and radiation. These are being corrected. Will defer to nephrology who has been consulted to see if patient would require emergent dialysis since he has not improved significantly on a sodium bicarbonate drip. He currently is not fluid overloaded with chest x-ray only showing atelectasis. 3. Hypertension. Controlled. 4. Pancytopenia, most likely due to chemotherapy. Monitoring for now. Transfuse as needed if becomes symptomatic or hemoglobin less than 8. Defer to nephrology if IV Venofer is indicated. 5. Hyperlipidemia. Chronic and stable. 6. Multiple myeloma. Currently on chemotherapy with dexamethasone, cyclophosphamide. Acyclovir due to immunocompromised state as prophylaxis. Instructor Of Education has been consulted. Patient follows with Dr. Gleason, medical oncologist at the [facility] as outpatient and has received radiation therapy. 7. Compression stockings for deep venous thrombosis (DVT) prophylaxis. [facility]
[2020-08-26 13:19] LABS: CALCIUM LEVEL 7.8 MG/DL (8.8-10.2); CREATININE FOR GFR 4.47 MG/DL (0.70-1.30); MAGNESIUM LEVEL 2.1 MG/DL (1.8-2.4); POTASSIUM SERUM 4.6 MEQ/L (3.5-5.1)
[2020-08-26 13:26] LABS: CHOLESTEROL LEVEL 95 MG/DL (<200); CHOLESTEROL RISK RATIO 3.064 (<5); HDL CHOLESTEROL 31 MG/DL (>40); LDL CHOLESTEROL 38 MG/DL (<100); NON-HDL-C 64 MG/DL; TRIGLYCERIDES LEVEL 129 MG/DL (<150)
[2020-08-26 13:34] LABS: HEPATITIS B SURFACE ANTIBODY NEGATIVE (POSITIVE)
[2020-08-26 13:44] LABS: HEPATITIS B SURFACE ANTIGEN NEGATIVE (NEGATIVE)
[2020-08-26 14:00] VITALS: BP 135/77
[2020-08-26] MEDS ORDERED: SIMETHICONE 80MG CHEW TAB PO PRN (14:00)
[2020-08-26 14:13] LABS: HEPATITIS B CORE ANTIBODY IGM NEGATIVE (NEGATIVE); HEPATITIS C VIRUS ABY INDEX < 0.0 INDEX (<0.8)
[2020-08-26] MEDS: SODIUM BICARBONATE 75 MEQ in NS 0.45% 1,000 ML IV SCH (14:13)
[2020-08-26 14:31] LABS: CLOSTRIDIUM DIFFICILE PCR NEGATIVE (NEGATIVE)
[2020-08-26] MEDS ORDERED: LIDOCAINE 1% MDV 20ML VIAL As Ordered ONE (14:51)
[2020-08-26] MEDS ORDERED: LIDOCAINE W/EPINEPHRINE 1% 20ML VIAL As Ordered ONE (15:17)
[2020-08-26] MEDS ORDERED: ceFAZolin 1GM VIAL (J0690 PER 500MG) As Ordered ONE (15:42)
[2020-08-26] MEDS ORDERED: fentaNYL 100 MCG/2 ML INJECTION (J3010) As Ordered ONE (15:57)
[2020-08-26] MEDS ORDERED: MIDAZOLAM INJ 2MG/2ML VIAL (J2250 PER 1MG) As Ordered ONE (15:57)
--- NOTE | 2020-08-26 16:46 | ROOPDOC ---
[facility] Report Of Operation Report of Operation DATE OF PROCEDURE: 08/26/20 PREPROCEDURE DIAGNOSES: Acute on chronic renal insufficiency requiring access for dialysis POSTPROCEDURE DIAGNOSES: Same PROCEDURE: 1. Ultrasound-guided access right internal jugular vein 2. Placement of a 23 cm right IJ tunneled PermCath SURGEON: Roberto Carlos Ramires MD ANESTHESIA: Local anesthesia 16 mL lidocaine. Moderate intravenous conscious sedation was supervised by Dr. Ramires. The patient was independently monitored by registered nurse assigned to the Department of radiology using automated blood pressure, EKG, and pulse oximetry. A detailed sedation record is permanently stored in the hospital information system. The following is a brief sedation record: Start time 16:14, stopped 16:35, Versed 1 mg IV, fentanyl 50 g IV, Ancef 2 g IV. INDICATION FOR PROCEDURE: This is a very pleasant 70-year-old gentleman with acute on chronic renal insufficiency requiring access for dialysis. Risks be nefits and alternatives to PermCath placement were explained the patient needs agreeable to proceed. Informed consent was obtained. INTERPRETATION: The PermCath is in good position with the tip freely mobile at the right atrial SVC junction. There are no kinks in the catheter. There is no pneumothorax. It is okay to use the catheter for dialysis. REPORT OF OPERATION: Patient was brought to the angiographic suite in stable condition. His right neck and chest were prepped and draped in sterile fashion. A timeout was performed. Local anesthesia was administered to skin and subcutaneous tissue over the right neck and chest. Sedation was administered without complication. A microneedle was used to access the right internal jugular vein under ultrasound guidance. A wire was passed through this access in his central system under fluoroscopic guidance. The wire was removed and a micro-sheath was placed. Through this access, a J-wire was advanced into the SVC and then the IVC under fluoroscopic guidance. We then performed 2 serial dilations over the wire and a peel-away sheath was placed over the wire. The inner cannula and wire were removed. Then made a small incision at the jugular access site and at the right chest and tunneled a 23 cm PermCath from the right chest to the jugular access site until the cuff was within the subcutaneous tissue. We advanced the tips of the catheter through the peel-away sheath and the peel-away sheath was removed. Both ports king back and flushed easily. The tip of the catheter appeared to have a small angulation, and this was corrected by placing a stiff Glidewire through the catheter and advancing it into the IVC. This allowed the tip of the catheter to straighten out. Following this the catheter was in good position with the tip freely mobile at the SVC right atrial junction. The ports were heparin locked and appropriate caps were placed. The jugular access site was irrigated and closed with deep and superficial interrupted Monocryl sutures. Dermabond was placed at the skin. The exit site on the right chest of the catheter was closed with a Prolene suture in the catheter was secured to the chest wall a traditional Prolene sutures. Sterile dressings were applied. The patient was then taken to recovery in stable condition. He tolerated the procedure and the sedation without difficulty. ESTIMATED BLOOD LOSS: Approximately 5 mL. COMPLICATIONS: None. PLAN: It is okay to use the PermCath for dialysis. It is okay to resume preprocedure diet/medications/orders per the hospitalist team. Keep head of bed greater than 45 elevated. We appreciate the opportunity to participate in the care of this patient. ROBERTO CARLOS RAMIRES MD Aug 26, 2020 16:46
[2020-08-26 18:31] LABS: CALCIUM LEVEL 7.2 MG/DL (8.8-10.2); CREATININE FOR GFR 4.47 MG/DL (0.70-1.30); MAGNESIUM LEVEL 1.9 MG/DL (1.8-2.4); POTASSIUM SERUM 4.6 MEQ/L (3.5-5.1)
[2020-08-26] MEDS ORDERED: NS 1,000 ML IV ONE (20:15)
[2020-08-26] MEDS ORDERED: LOPERAMIDE 2 MG CAPLET PO PRN (20:35)
[2020-08-26 21:06] LABS: PERCENT SATURATION 45.8 % (19.7-50.0)
[2020-08-26 22:00] VITALS: BP 141/80
[2020-08-26] MEDS: CIPROFLOXACIN 400 MG in IV 1 EA IV SCH (22:21)
[2020-08-27] VITALS (11 sets, daily range): BP systolic 114–136; BP diastolic 69–77
[2020-08-27] MEDS: metroNIDAZOLE 500 MG in IV 1 EA IV SCH ×4 (00:49→21:39)
[2020-08-27] MEDS: CALCITRIOL 0.25 MCG CAP (S0169) PO SCH (06:04)
[2020-08-27] MEDS: MULTIVITAMINS/MINERALS THERAP 1 TAB PO SCH (06:04)
[2020-08-27] MEDS: CALCIUM/VITAMIN D 500 MG TAB PO SCH ×2 (06:04→20:22)
[2020-08-27 06:29] LABS: BASO % 0.3 % (0.0-1.0); EOS % 0.8 % (0.0-3.0); HEMOGLOBIN 7.4 g/dl (13.5-17.5); LYMPH # 0.2 10^3/uL (1.5-5.0); LYMPH % 5.2 % (24.0-44.0); MEAN CORPUSCULAR HEMOGLOBIN 32.3 pg (27.0-33.0); MEAN CORPUSCULAR HGB CONC 35.2 g/dl (32.0-36.5); MEAN CORPUSCULAR VOLUME 91.7 fl (80.0-96.0); MONO # 0.6 10^3/uL (0.0-0.8); MONO % 16.3 % (2.0-8.0); NEUTROPHILS # 2.9 10^3/uL (1.5-8.5); NEUTROPHILS % 75.3 % (36.0-66.0); PLATELET COUNT, AUTOMATED 107 10^3/uL (150-450); RED BLOOD COUNT 2.29 10^6/uL (4.30-6.10); WHITE BLOOD COUNT 3.9 10^3/uL (4.0-10.0)
[2020-08-27 06:58] LABS: ALBUMIN 2.5 GM/DL (3.2-5.2); CREATININE FOR GFR 4.43 MG/DL (0.70-1.30); GLOMERULAR FILTRATION RATE 14.2 (>49); PHOSPHORUS LEVEL 3.9 MG/DL (2.5-4.9); POTASSIUM SERUM 4.2 MEQ/L (3.5-5.1)
[2020-08-27] MEDS: SODIUM BICARBONATE 75 MEQ in NS 0.45% 1,000 ML IV SCH ×2 (08:16→18:14)
--- NOTE | 2020-08-27 08:52 | IPNPDOC ---
Date Seen The patient was seen on 08/27/20. Progress Note pls call hypertype AT [phone] for STAT watch train assembler JOB #[id number] if Hospitalist progress note is needed urgently. VS, I&O, 24H, [facility] Vital Signs/I&O Vital Signs Date Time Temp Pulse Resp B/P (MAP) Pulse Ox O2 Delivery O2 Flow Rate FiO2 08/27/20 06:00 97.6 96 19 134/77 (96) 95 Room Air 08/26/20 16:35 2 I&O- Last 24 Hours up to 6 AM 08/27/20 06:00 Intake Total 5285 ml Output Total 375 ml Balance 4910 ml Laboratory Data 24H LABS Laboratory Tests 2 08/26/20 12:38: Anion Gap 13, Glomerular Filtration Rate 14.0L, Estimated Mean Plasma Glucose 126H, Hemoglobin A1c 6.0, Calcium Level 7.8#L, Whole Blood Ionized Calcium 4.0L, Magnesium Level 2.1, Triglycerides Level 129, Total Cholesterol 95, LDL Cholesterol 38, Non-HDL Cholesterol (LDL + VLDL) 64, Total HDL Cholesterol 31L, Cholesterol/HDL Ratio 3.064, Hepatitis B Surface Antigen NEGATIVE, Hepatitis B Surface Antibody NEGATIVE, Hepatitis B Core IgG Antibody Negative, Hepatitis B Core IgM Antibody NEGATIVE, Hepatitis C Antibody Index < 0.0 08/26/20 13:28: Clostridium difficile [id number] PRESUMPTIVE NEGATIVE, Clostridium difficile Toxin (PCR) NEGATIVE 08/26/20 17:41: Anion Gap 12, Glomerular Filtration Rate 14.0L, Calcium Level 7.2L, Whole Blood Ionized Calcium 4.0L, Magnesium Level 1.9, Iron Level 97, Total Iron Binding Capacity 212L, Transferrin % Saturation 45.8, Ferritin 810H 08/26/20 19:59: Lactic Acid Level 2.1*H 08/27/20 00:37: Lactic Acid Followup at 4 Hours 1.4 08/27/20 06:11: Immature Granulocyte % (Auto) 2.1, Neutrophils (%) (Auto) 75.3H, Lymphocytes (%) (Auto) 5.2L, Monocytes (%) (Auto) 16.3H, Eosinophils (%) (Auto) 0.8, Basophils (%) (Auto) 0.3, Neutrophils # (Auto) 2.9, Lymphocytes # (Auto) 0.2L, Monocytes # (Auto) 0.6, Eosinophils # (Auto) 0.0, Basophils # (Auto) 0.0, Nucleated Red Blood Cells % (auto) 0.0, Anion Gap 13, Glomerular Filtration Rate 14.2L, Calcium Level 7.0L, Whole Blood Ionized Calcium 3.8L, Phosphorus Level 3.9, Albumin 2.5#L CBC/BMP Laboratory Tests 08/26/20 12:38 08/26/20 17:41 08/27/20 06:11 Microbiology Microbiology 08/27/20 Gastrointestinal Tract Panel (PCR) - Final, Complete RICHARD SPRAGUE MD Aug 27, 2020 08:52
[2020-08-27] MEDS ORDERED: SODIUM CHLORIDE 0.9% 1000ML IV PRN (09:00)
[2020-08-27] MEDS ORDERED: ONDANSETRON 4 MG TAB PO PRN (09:00)
[2020-08-27] MEDS: LOMOTIL 2.5MG/0.025MG TABLET PO SCH ×4 (09:17→20:22)
--- NOTE | 2020-08-27 10:29 | CR ---
CONSULTATION DATE: 08/26/2020 REQUESTING PHYSICIAN: Ayala Gusman MD CONSULTING PHYSICIAN: Vasile Marinelli M.D REASON FOR CONSULTATION: Management of acute renal failure and electrolyte abnormalities. CHIEF COMPLAINT: The patient was sent from nephrology office because of abnormal labs. HISTORY OF PRESENT ILLNESS: Peter Padgett is a 70-year-old male who has confirmed diagnosis of multiple myeloma with myeloma nephropathy and extensive lytic lesions in the bone, currently following up with [facility], well know to nephrology service from recent hospitalization and from outpatient nephrology office and during last hospitalization, he had hypercalcemia of malignancy and he was given a dose of XGEVA. As outpatient, he has recently been started on Velcade and he is getting radiation. The patient is also on cyclophosphamide and dexamethasone. His radiation treatment completed last week and after that, he started having 2-3 bouts of diarrhea. He denied any blood in the stools. He is trying to hydrate himself by drinking more liquids. The patient was seen in the nephrology office yesterday. He was found to have acute renal failure superimposed on chronic kidney disease. He had hypocalcemia, hyperkalemia and metabolic acidosis. The patient was sent to the emergency room and he was admitted under the hospitalist service yesterday with acute renal failure secondary to multiple myeloma, hyperkalemia, metabolic acidosis and hyponatremia. I saw and evaluated the patient today in the morning at the bedside. He has been started on bicarb containing fluids since yesterday. He is still complaining of loose stools. Despite IV fluid hydration, there is no significant improvement in the renal function. His creatinine was 4.4 today morning. PAST MEDICAL HISTORY: 1. Recent diagnosis of multiple myeloma. 2. Trauma to the right hip. 3. Multiple lytic bone lesions. 4. Myeloma nephropathy. PAST SURGICAL HISTORY: 1. Status post right anterior chest wall Port-a-Cath placement. 2. Status post bone marrow biopsy. ALLERGIES: No known drug allergies. FAMILY HISTORY: No significant family history of end-stage renal disease. SOCIAL HISTORY: He denies any smoking, illicit drug abuse or alcohol abuse. REVIEW OF SYSTEMS: Constitutional: The patient reports feeling weak and tired. Eyes: He denies any blurry vision, double vision. ENT: He denies any dysphagia, odynophagia. Cardiovascular: He denies any chest pain, no palpitations. Respiratory: He denies any shortness of breath. GI: He reports loose stools and diarrhea. Genitourinary: He denies any dysuria, hematuria. Musculoskeletal: He reports muscle aches and weakness. Skin: He denies any rashes or ulcers. Hematological/Oncological: He reports multiple myeloma. ADHESION TESTER: He denies any strokes or seizures. Psych: He denies any depression or anxiety. All other review of systems is negative. PHYSICAL EXAMINATION: GENERAL: The patient is awake, alert, oriented x3, lying in bed. VITAL SIGNS: Temperature is 99.8 degrees Fahrenheit, blood pressure is 135/77. Pulse is 89, respiratory rate of 18, saturating 98% on room air. Intake and output: Urine recorded yesterday as 800 mL, so far today is 250 mL. He has had 11 bowel movements so far since last night. HEAD AND NECK: Extraocular muscles are intact. Pupils are equally round and reactive to light. Mucous membranes are moist. Neck is supple. He has a right IJ Port-a-Cath. CARDIOVASCULAR: S1, S2, regular rate. EXTREMITIES: No edema of the bilateral lower extremities. RESPIRATORY: Chest is clear to auscultation bilaterally. Bilateral equal air entry. No rales or rhonchi. ABDOMEN: Soft, positive bowel sounds. Nontender, no organomegaly. GENITOURINARY: Bladder is not palpable. MUSCULOSKELETAL: No clubbing or cyanosis. Pulses are 2+. ADHESION TESTER: No focal deficits. 5/5 strength in all extremities. SKIN: No rashes or ulcers. LABORATORY DATA: CBC showed a WBC of 2.8, hemoglobin 8.1, platelets are 220. ABG: pH was 7.28, pCO2 23.9, pO2 104. Bicarb is 11. O2 sat is 97.5%. BMP done on arrival showed sodium 136, potassium 5.3, chloride 110, bicarb 17, BUN 60, creatinine 4.6. Calcium was 6.6. Lipase was 501. Ionized calcium was 3.8. Uric acid 8.2. BMP done in the afternoon today after IV fluid hydration showed sodium 131, potassium 4.6, chloride 103, bicarb 16, BUN 62, creatinine is 4.4, calcium 7.2.Whole blood ionized calcium is 4 after IV calcium administration and magnesium level is 1.9. IMAGING: A renal ultrasound was done which did not show any acute pathology. Chest x-ray was done yesterday which showed multiple lytic bone lesions, discoid atelectasis in the right lower lobe CURRENT INPATIENT MEDICATIONS: The patient's medications were all reviewed by myself. 1. He is getting IV calcium gluconate injections. 2. He was also given a run of magnesium sulfate. 3. I have ordered a normal saline bolus. 4. He is getting half normal saline with 75 mEq of bicarb at 150 mL an hour. 5. Initially he was getting D5W with 150 mEq of bicarb which has been stopped by myself. 6. He is on Tylenol p.r.n. 7. Vitamin C has been stopped. 8. His calcitriol has been changed to 0.25 mcg p.o. daily. 9. Calcium tablet has been increased to calcium plus vitamin D 1 gm p.o. twice a day. 10. The patient was briefly started on Bicitra but because of diarrhea, Bicitra has been stopped. 11. He is on Decadron 40 mg p.o. on Wednesdays. 12. Iron tablet has been stopped. 13. He is on Multivitamin. 14. Zofran three times a day. 15. He was on Veltassa 8.4 mg p.o. daily which I have stopped now because potassium is better. 16. Prochlorperazine p.r.n. 17. Simethicone 80 mg p.o. three times a day. ASSESSMENT AND PLAN: 1. Acute renal failure superimposed on chronic kidney disease. The patient's best creatinine according to the hospital records is 3.1 as of August 08, 2020. His creatinine has bumped up to 4.4 now. Acute renal failure is multifactorial. The patient is having diarrhea after chemotherapy and radiation. He has metabolic acidosis and he has baseline myeloma nephropathy. Tunneled dialysis catheter was placed. I will try to aggressively hydrate the patient. If hydration does not help improve renal function, then patient will be started on hemodialysis until we see improvement in his renal function with IV fluids and with chemotherapy. 2. Diarrhea after chemotherapy and radiation. The patient was given one liter normal saline bolus. His bicarb fluids have been changed to half normal saline plus 75 mEq of bicarb at 150 mL an hour. Continue to encourage oral hydration. GI panel has been sent. 3. Metabolic acidosis. It is secondary to a combination of renal failure and diarrhea. Continue IV bicarb-containing fluid. He was basically started on Bicitra but because of diarrhea, Bicitra has been stopped. 4. Hypocalcemia. The patient had hypercalcemia of malignancy during previous hospitalization. He was given XGEVA. Now the patient is hypocalcemic. He was given a total of 4 gm of IV calcium gluconate and despite that, his calcium levels are still low. He will be given another dose of IV calcium gluconate. Oral calcium dose has also been increased. 5. Hyperkalemia. It is secondary to renal failure and metabolic acidosis. Potassium level is improving with improvement in metabolic acidosis. Oral Veltassa has been stopped. 6. Hypomagnesemia. The patient was already given IV magnesium sulfate. 7. Pancytopenia. The patient has multiple myeloma and he is on chemotherapy. I have requested hematology to see the patient. Dr. Gleason will evaluate the patient while he is in the hospital. 8. Multiple myeloma, currently under treatment. Management is as per hematology-oncology recommendations. Thank you for involving me in the care of this patient. I shall be happy to follow the patient along with you tomorrow morning.
[2020-08-27] MEDS ORDERED: DARBEPOETIN 200MCG/0.4ML *DIALYSIS* SYRINGE (J0882 PER 1MCG) IV SCH (11:10)
[2020-08-27] MEDS ORDERED: DARBEPOETIN 100 MCG/0.5 ML *DIALYSIS* SYRINGE (J0882) IV SCH (11:15)
[2020-08-27] MEDS ORDERED: CALCIUM GLUCONATE 1,000 MG in D5W MINI-BAG PLUS 100 ML IV ONE (12:00)
--- NOTE | 2020-08-27 14:36 | IPN ---
PROGRESS NOTE DATE: 08/27/2020 SUBJECTIVE: Patient seen and examined at the bedside. Chart has been reviewed. He denies any shortness of breath, chest pain, pressure, tightness, fever, chills or cough. Diarrhea is still persistent, five watery, nonbloody, nonmucusy, without nausea or vomiting. Patient remains oliguric with persistent acidosis despite conservative management with bicarbonate drip. Scheduled for dialysis this morning. No other issues overnight, per nursing. Patient underwent ultrasound-guided access of right internal jugular vein for placement of a right internal jugular (IJ) tunneled Permacath for dialysis yesterday, 08/26/2020. OBJECTIVE: PHYSICAL EXAMINATION: VITAL SIGNS: Temperature 97.6, pulse 96, respiratory rate 19, blood pressure 134/77, 95% on room air. GENERAL: Patient is awake, alert, oriented to person, place and time, answering questions appropriately. No conversational dyspnea or use of respiratory accessory muscles. HEENT: Patient is pale. No icterus, jaundice. No jugular venous distention (JVD) or thyromegaly. No cervical lymphadenopathy. Moist mucous membranes. No carotid bruit or stridor. LUNGS: Diminished. Clear to auscultation. No wheezing or rales. HEART: S1, S2. Sinus rhythm. ABDOMEN: Soft, nontender, nondistended. Positive bowel sounds times four quadrants. No costovertebral angle (CVA) tenderness. EXTREMITIES: No cyanosis or clubbing. LABORATORY DATA: White count 3.9, hemoglobin 7.4, hematocrit 21, platelet count 107. Sodium 129, potassium 4.2, chloride 102, bicarbonate 14, BUN 59, creatinine 4.43, glucose 105. Input 6245, output 425, positive 5820 yesterday. Weight is 81.5 kilos from admission weight of 80.1 kg. ASSESSMENT AND PLAN: This is a 70-year-old male with recent diagnosis of multiple myeloma, hypertension, reflux, hyperlipidemia, presented to the emergency room due to abnormal blood test and persistent diarrhea, undergoing chemotherapy and radiation. IMPRESSION: 1. Chemotherapy and radiation induced diarrhea with hypovolemia causing acute on chronic renal failure, now end-stage renal failure with oliguria, persistent metabolic acidosis, despite intravenous (IV) bicarbonate drip. Patient had undergone right IJ tunneled catheter for first dialysis session today. Nephrology will be managing his dialysis needs. 2. Acute on chronic renal failure secondary to multiple myeloma, hypovolemia from diarrhea. Now requiring emergent dialysis due to oliguria and persistent metabolic acidosis. Electrolyte abnormalities have improved. Patient is receiving R-CHOP and had recently received radiation. 3. Diarrhea. Gastrointestinal (GI) panel was negative. Most likely, radiation-induced or chemotherapy-induced. Lomotil to decrease diarrhea episodes. 4. Hyponatremia. Secondary to renal failure. 5. Anemia. Hemoglobin of 7.4, hematocrit of 21. Most likely secondary to bone marrow suppression from recent chemotherapy/pancytopenia due to chemotherapy. Supportive care. Patient is not neutropenic at this time. He may be transfused 2 units red blood cells today. Platelet count is normal. Compression stockings for deep venous thrombosis (DVT) prophylaxis. MTDD
[2020-08-27] MEDS ORDERED: SODIUM BICARBONATE 75 MEQ in NS 0.45% 1,000 ML IV SCH (18:00)
[2020-08-27 18:23] LABS: HEMATOCRIT 25.3 % (42.0-52.0)
--- NOTE | 2020-08-27 19:37 | IPN ---
NEPHROLOGY PROGRESS NOTE DATE: 08/27/2020 SUBJECTIVE: The patient was seen and examined at the bedside today morning. The last 24 hour events were noted. The patient was having loose watery stools yesterday. He had 13 bowel movements yesterday. He was started on IV antibiotics, Loperamide and he was given IV fluid boluses. Because of renal failure, Vascular Surgery saw him yesterday. He got a tunneled dialysis catheter placed. Despite aggressive IV fluid hydration, there is no significant improvement in the patient's renal function, and he agreed to start hemodialysis today. OBJECTIVE: VITAL SIGNS: Temperature is 99 degrees Fahrenheit, blood pressure 130/71, pulse is 78, respiratory rate of 16, saturating 95% on room air. INTAKE AND OUTPUT: Urine output recorded as 425 mL yesterday, 900 mL so far today since overnight. Weight in the bed scale is 81.5 kg. PHYSICAL EXAMINATION: HEAD AND NECK: Extraocular muscles intact. Pupils are equally round and reactive to light. Mucous membranes are moist. Neck is supple. There is no jugular venous distention. He has a tunneled dialysis catheter. CARDIOVASCULAR: S1, S2, regular rate. EXTREMITIES: No edema of the bilateral lower extremities. RESPIRATORY: Chest is clear to auscultation bilaterally. Bilaterally currently no rales or rhonchi. ABDOMEN: Soft, positive bowel sounds, nontender, no organomegaly. MUSCULOSKELETAL: No clubbing, no cyanosis. Pulses are 2+. MELTER LOADER: No focal deficits. Power is 5/5 in all extremities. LAB REVIEW: CBC showed a WBC of 3.9, hemoglobin was 7.4 today. Platelet count 107. BMP showed sodium of 129, potassium 4.2, chloride 102, bicarbonate 14, BUN 59, creatinine is 4.4. Lactic acid is 1.4 today. Calcium is 7, ionized calcium is 3.8. Phosphorous is 3.9. Albumin 2.5. Iron is 97, TIBC 212, transferrin saturation 45.8, ferratin is 810. CURRENT INPATIENT MEDICATIONS: The patient's medications were all reviewed by myself. He was started on Cipro and Flagyl yesterday. He was given a normal saline bolus yesterday. He continues to be half normal saline with bicarbonate at 150 mL an hour. Vitamin C has been stopped. He was also started on Aranesp 200 mcg with dialysis. No other significant change in the medications today. ASSESSMENT AND PLAN: 1. Acute renal failure - The patient has acute non oliguric renal failure. He has metabolic acidosis and currently being treated for myeloma. The patient got a tunneled dialysis catheter placed yesterday. He will be dialyzed for two and a half hours today, and he will be evaluated on Saturday for any further need of hemodialysis. 2. Diarrhea after chemotherapy and radiation - continue bicarbonate containing fluids. Oral hydration was encouraged. Continue Loperamide p.r.n. He is getting bicarbonate containing fluids as well. 3. Metabolic acidosis - The patient's acidosis will get better with hemodialysis. He is also getting bicarbonate in the IV fluids. 4. Hypocalcemia it is secondary to the use of Xgeva during previous hospitalization for hypercalcemia of malignancy. He was given another dose of IV calcium gluconate. Dialysis would also help improve his calcium levels. 5. Hyperkalemia it is resolving with improvement of metabolic acidosis. The patient is being dialyzed today. That will help improve his potassium levels further. 6. Pancytopenia It is secondary to multiple myeloma and recently he was started on chemotherapy as well. The patient is going to get 2 units of PRBC transfusion today with hemodialysis. 7. Multiple myeloma - management is as per Hematology/Oncology recommendations.
[2020-08-27] MEDS: CIPROFLOXACIN 400 MG in IV 1 EA IV SCH (20:22)
[2020-08-27] MEDS ORDERED: PATIROMER SORBITEX CALCIUM 8.4 GM POWDER PACKET (VELTASSA) PO SCH (21:00)
[2020-08-28 05:40] LABS: HEMATOCRIT 23.9 % (42.0-52.0); HEMOGLOBIN 8.4 g/dl (13.5-17.5); MEAN CORPUSCULAR HEMOGLOBIN 31.5 pg (27.0-33.0); MEAN CORPUSCULAR HGB CONC 35.1 g/dl (32.0-36.5); MEAN CORPUSCULAR VOLUME 89.5 fl (80.0-96.0); PLATELET COUNT, AUTOMATED 107 10^3/uL (150-450); RED BLOOD COUNT 2.67 10^6/uL (4.30-6.10); WHITE BLOOD COUNT 3.3 10^3/uL (4.0-10.0)
[2020-08-28 06:00] VITALS: BP 134/71
[2020-08-28 06:07] LABS: CALCIUM LEVEL 7.5 MG/DL (8.8-10.2); CREATININE FOR GFR 3.56 MG/DL (0.70-1.30); GLOMERULAR FILTRATION RATE 18.2 (>49); MAGNESIUM LEVEL 1.6 MG/DL (1.8-2.4); PHOSPHORUS LEVEL 3.1 MG/DL (2.5-4.9); POTASSIUM SERUM 3.6 MEQ/L (3.5-5.1)
[2020-08-28] MEDS: metroNIDAZOLE 500 MG in IV 1 EA IV SCH ×3 (06:14→22:08)
[2020-08-28] MEDS: CALCIUM/VITAMIN D 500 MG TAB PO SCH ×2 (08:42→20:42)
[2020-08-28] MEDS: MULTIVITAMINS/MINERALS THERAP 1 TAB PO SCH (08:42)
[2020-08-28] MEDS: LOMOTIL 2.5MG/0.025MG TABLET PO SCH ×4 (08:42→20:42)
[2020-08-28] MEDS: CALCITRIOL 0.25 MCG CAP (S0169) PO SCH (08:42)
--- NOTE | 2020-08-28 08:46 | IPNPDOC ---
Date Seen The patient was seen on 08/28/20. Progress Note Hospitalist progress note dictated job #[id number]. Pls have community development specialist call hypertype at [phone] for stat department specialist. VS, I&O, 24H, Fishbone Vital Signs/I&O Vital Signs Date Time Temp Pulse Resp B/P (MAP) Pulse Ox O2 Delivery O2 Flow Rate FiO2 08/28/20 06:00 98.9 85 17 134/71 (92) 93 Room Air 08/26/20 16:35 2 I&O- Last 24 Hours up to 6 AM 08/28/20 06:00 Intake Total 2630 ml Output Total 2000 ml Balance 630 ml Laboratory Data 24H LABS Laboratory Tests 2 08/28/20 05:24: Nucleated Red Blood Cells % (auto) 0.0, Anion Gap 8, Glomerular Filtration Rate 18.2L, Calcium Level 7.5L, Whole Blood Ionized Calcium 4.2L, Phosphorus Level 3.1#, Magnesium Level 1.6L CBC/BMP Laboratory Tests 08/27/20 18:09 08/28/20 05:24 Microbiology Microbiology 08/27/20 Gastrointestinal Tract Panel (PCR) - Final, Complete RICHARD SPRAGUE MD Aug 28, 2020 08:46
[2020-08-28] MEDS ORDERED: POTASSIUM CHLORIDE 10 MEQ SR TABLET PO ONE (09:00)
[2020-08-28] MEDS ORDERED: CALCIUM GLUCONATE 1,000 MG in D5W MINI-BAG PLUS 100 ML IV ONE (09:00)
[2020-08-28] MEDS ORDERED: MAG SULF 1GM/100ML (MAG RUN) 1 GM in IV 1 EA IV ONE (10:00)
--- NOTE | 2020-08-28 13:49 | IPN ---
PROGRESS NOTE DATE: 08/28/2020 SUBJECTIVE: The patient is seen and examined at the bedside. The chart has been reviewed. He said that he had two bowel movements yesterday, much improved than before but still watery. No dizziness, lightheadedness, diaphoresis when he ambulates. He had dialysis for the first time yesterday. He says that he feels much better today. He feels normal, anxious to go home. No fevers, chills, shortness of breath, chest pain, pressure or tightness. No abdominal pain, nausea or vomiting. OBJECTIVE: PHYSICAL EXAMINATION: VITAL SIGNS: Temperature 98.9, pulse 85, respiratory rate 17, blood pressure 134/71, 93% on room air. GENERAL APPEARANCE: Awake, alert, oriented to person, place and time, answering questions appropriately. HEENT: No icterus, pallor or jaundice. Moist mucous membranes. NECK: No jugular venous distention, thyromegaly, cervical lymphadenopathy. LUNGS: Clear to auscultation. No rales, rhonchi or wheezes. HEART: S1, S2, sinus rhythm. ABDOMEN: Obese, soft, nontender, nondistended, positive bowel sounds x4 quadrants. EXTREMITIES: No cyanosis or clubbing. Positive edema. LABORATORY DATA: White count 3.3, hemoglobin 8.4, hematocrit 23, platelet count 107. Sodium 136, potassium 3.6, chloride 106, bicarbonate 22.3, BUN 35, creatinine 3.56, glucose of 94, whole ionized calcium 4.2, magnesium 1.6. INTAKE AND OUTPUT: Input overnight 2,240, output of 1,950 from midnight 690 input output of 750. ASSESSMENT AND PLAN: 1. This is a 70-year-old male with hypertension, hyperlipidemia, recently diagnosed with multiple myeloma, currently undergoing chemotherapy with right IJ tunneled catheter placed due to immediate need for dialysis after patient presented with worsening renal failure, metabolic acidosis that could not be corrected with bicarbonate drip, hyperkalemia and oliguria. Current issues: chemotherapy and radiation induced diarrhea with hypovolemia causing [id number] renal failure, now at stage 4 requiring emergent dialysis. The patient had undergone right IJ catheter, had the first dialysis session on 08/27/2020 with electrolytes back to normal. The patient has diuresed well overnight, 750 since midnight. 2. Multiple myeloma with chemotherapy induced pancytopenia - The patient has been transfused RBCs yesterday on 08/27/2020, no overt GI bleed. 3. Multiple myeloma, undergoing chemotherapy and follows at the [facility]. Outpatient follow up once the patient is discharged. 4. Diarrhea improved, now down to two bowel movements a day with no electrolyte abnormalities. GI panel was negative. 5. Disposition Await clearance from Nephrology. MTDD
[2020-08-28 14:00] VITALS: BP 135/75
--- NOTE | 2020-08-28 18:04 | IPN ---
NEPHROLOGY PROGRESS NOTE DATE: 08/28/2020 SUBJECTIVE: Patient was seen and examined at the bedside today morning. He was dialyzed yesterday. He reports that he feels much better after a session of dialysis. His metabolic acidosis is improved. He still has mild persistent hypocalcemia today. OBJECTIVE: VITAL SIGNS: Temperature 98.9 degrees Fahrenheit, blood pressure 134/71, pulse 85, respiratory rate 17, sating 93% on room air. INTAKE AND OUTPUT: Urine output recorded as 1700 mL yesterday and 1 liter so far today since overnight. Weight in the bed scale is 83.5 kg. PHYSICAL EXAMINATION: GENERAL: Patient is awake, alert, oriented x3, lying in bed in no apparent distress. HEAD AND NECK: Extraocular muscles intact. Pupils equally round and reactive to light. Neck is supple. He has a right IJ tunneled hemodialysis catheter. RESPIRATORY: Chest is clear to auscultation bilaterally. Bilateral equal air entry. No rales or rhonchi. CARDIOVASCULAR: S1, S2, regular rate. Trace edema of bilateral lower extremities. ABDOMEN: Soft, positive bowel sounds, nontender. No organomegaly. MUSCULOSKELETAL: No clubbing or cyanosis. Pulses are 2+. HORTICULTURE INSTRUCTOR: No focal deficit. Power is 5/5 in all extremities. LAB REVIEW: CBC showed WBC 3.3, hemoglobin 8.4, platelets 107,000. BMP showed sodium 136, potassium 3.6, chloride 106, bicarb 22, BUN 35, creatinine 3.5. Calcium 7.5. Ionized calcium 4.2. Phosphorus 3.1. Magnesium 1.6. CURRENT INPATIENT MEDICATIONS: Patient's medications were all reviewed by myself. He was given another dose of I.V. calcium gluconate. He continues to be on Ciprofloxacin and Flagyl. He was also given mag sulfate one today morning. ASSESSMENT AND PLAN: 1. Acute renal failure superimposed on chronic kidney disease: Patient was dialyzed yesterday. He feels much better after the session of dialysis. Next hemodialysis will be done tomorrow morning for 3 hours. 2. Diarrhea after chemotherapy and radiation: Patient is on Lomotil. Diarrhea is significantly better. He is also on Cipro and Flagyl. I.V. fluids have been stopped. 3. Metabolic acidosis: It has resolved after hemodialysis. No need of oral bicarb administration at this time. 4. Hypocalcemia: Patient has persistent hypocalcemia. He was given another dose of I.V. calcium gluconate today morning. 5. Pancytopenia: It is secondary to multiple myeloma. Patient got blood yesterday. He was also given Aranesp. 6. Multiple myeloma: Management is as per hematology/oncology. 7. Hypomagnesemia: Patient was given I.V. mag sulfate.
[2020-08-28] MEDS: CIPROFLOXACIN 400 MG in IV 1 EA IV SCH (20:42)
[2020-08-28 22:00] VITALS: BP 135/70
[2020-08-29 06:00] VITALS: BP 162/78
[2020-08-29 06:07] LABS: HEMATOCRIT 26.1 % (42.0-52.0); HEMOGLOBIN 8.8 g/dl (13.5-17.5); MEAN CORPUSCULAR HEMOGLOBIN 31.3 pg (27.0-33.0); MEAN CORPUSCULAR HGB CONC 33.7 g/dl (32.0-36.5); MEAN CORPUSCULAR VOLUME 92.9 fl (80.0-96.0); PLATELET COUNT, AUTOMATED 120 10^3/uL (150-450); RED BLOOD COUNT 2.81 10^6/uL (4.30-6.10); WHITE BLOOD COUNT 4.2 10^3/uL (4.0-10.0)
[2020-08-29 06:19] LABS: CALCIUM LEVEL 7.8 MG/DL (8.8-10.2); CREATININE FOR GFR 4.31 MG/DL (0.70-1.30); GLOMERULAR FILTRATION RATE 14.6 (>49); POTASSIUM SERUM 3.7 MEQ/L (3.5-5.1)
[2020-08-29] MEDS: CALCIUM/VITAMIN D 500 MG TAB PO SCH ×2 (06:22→21:07)
[2020-08-29] MEDS: CALCITRIOL 0.25 MCG CAP (S0169) PO SCH (06:22)
[2020-08-29] MEDS: LOMOTIL 2.5MG/0.025MG TABLET PO SCH ×4 (06:22→21:07)
[2020-08-29] MEDS: metroNIDAZOLE 500 MG in IV 1 EA IV SCH (06:23)
[2020-08-29] MEDS: MULTIVITAMINS/MINERALS THERAP 1 TAB PO SCH (06:31)
[2020-08-29] MEDS ORDERED: CALCITRIOL 0.25 MCG CAP (S0169) PO SCH (09:00)
--- NOTE | 2020-08-29 09:08 | IPNPDOC ---
Date Seen The patient was seen on 08/29/20. Progress Note Hospitalist progress note has been dictated. . Please call hyper-type at [phone]. If note is needed urgently for stat bank cashier VS, I&O, 24H, Fishbone Vital Signs/I&O Vital Signs Date Time Temp Pulse Resp B/P (MAP) Pulse Ox O2 Delivery O2 Flow Rate FiO2 08/29/20 06:00 98.9 99 20 162/78 (106) 96 Room Air 08/26/20 16:35 2 I&O- Last 24 Hours up to 6 AM 08/29/20 06:00 Intake Total 2400 ml Output Total 2500 ml Balance -100 ml Laboratory Data 24H LABS Laboratory Tests 2 08/29/20 05:40: Nucleated Red Blood Cells % (auto) 0.0, Anion Gap 10, Glomerular Filtration Rate 14.6L, Calcium Level 7.8L CBC/BMP Laboratory Tests 08/29/20 05:40 Microbiology Microbiology 08/27/20 Gastrointestinal Tract Panel (PCR) - Final, Complete RICHARD SPRAGUE MD Aug 29, 2020 09:08
[2020-08-29] MEDS ORDERED: LOPERAMIDE 2 MG CAPLET PO ONE (09:10)
[2020-08-29] MEDS: CIPROFLOXACIN 500MG TABLET PO SCH (09:22)
[2020-08-29] MEDS ORDERED: LOPERAMIDE 2 MG CAPLET PO PRN (09:30)
--- NOTE | 2020-08-29 09:51 | IPN ---
PROGRESS NOTE DATE: 08/29/2020 SUBJECTIVE: Patient is seen and examined at the bedside. Chart has been reviewed. Patient says "I feel okay." Urine output overnight was 2.3 liters. Current weight is 83.6 kg from admission weight of 80.1 kg. Patient denies chest pain, pressure, tightness, lightheadedness, dizziness, hematemesis, coffee ground emesis, bright red blood per rectum, black tarry stools. Patient had slight metabolic acidosis with bicarbonate of 20 today, persistent elevation in creatinine, 4.3, with stage V end-stage renal disease. OBJECTIVE: PHYSICAL EXAMINATION: Vital signs: Temperature 98.9, pulse 99, respiratory rate 20, blood pressure 162/78, 96% on room air. Generally: Patient is awake, alert, oriented to person, place, and time. Anicteric, no jaundice. Speaks in full sentences, no conversational dyspnea. HEENT: No icterus, pallor, jaundice. Moist mucous membranes. No jugular venous distension (JVD), thyromegaly, cervical lymphadenopathy, stridor, or carotid bruit. Lungs are clear to auscultation. No wheezing, rales, or rhonchi. No adventitious breath sounds. Air entry is equal bilaterally. No kyphoscoliosis. Heart: S1, S2, sinus rhythm. No murmurs, rubs, or gallops. Abdomen: Obese, soft, nontender, nondistended. Positive bowel sounds times four quadrants. Extremities: No cyanosis or clubbing. Positive pitting edema bilaterally. LABORATORY DATA: 08/29/2020: White count 4.2, hemoglobin 8.8, hematocrit 26, platelet count of 120, sodium 133, potassium 3.7, chloride 103, bicarbonate 20, BUN 34, creatinine 4.31, glucose of 108. Gastrointestinal (GI) panel 08/27/2020 is negative. ASSESSMENT AND PLAN: This is a 70-year-old male with recent diagnosis of multiple myeloma, undergoing chemotherapy and radiation, presented to the emergency room with abnormal electrolytes with severe metabolic acidosis, worsening renal failure, and hyperkalemia. CURRENT ISSUES: Are as follows: 1. Acute on chronic renal failure, now end-stage stage V secondary to hypovolemia, worsening myeloma. Patient underwent right internal jugular (IJ) catheter placement and had a first session of dialysis on 08/27/2020 with improvement in electrolytes and acid-base balance, as well as his previous oliguria. Patient is urinating well currently. Still undergoing hemodialysis today per nephrology recommendations. 2. Multiple myeloma with chemotherapy-induced pancytopenia. Patient was transfused 08/27/2020 with stable hemoglobin and hematocrit since admission. 3. Diarrhea. Gastrointestinal (GI) panel was negative. As needed loperamide. He is now down to two bowel movements per day. No signs of hypovolemia. Tolerating his diet well. DISPOSITION: Defer to nephrology for clearance for discharge home, still monitoring patient's renal function. MTDD
--- NOTE | 2020-08-29 11:41 | IPN ---
PROGRESS NOTE DATE: 08/29/2020 SUBJECTIVE: The patient is seen and examined this morning at the bedside. He is in good spirits. He denies any complaints. He reports his diarrhea is much improved. He is due for dialysis later this afternoon as well. OBJECTIVE: VITAL SIGNS: Temperature is 98.9, pulse is 99, respiratory rate is 20, blood pressure is 135/70, saturating 97% on room air. INTAKE AND OUTPUT: Intake yesterday was 2.8 liters, urine output was 2.4 liters. Weight on the bed scale today is 83.6 kg. GENERAL APPEARANCE: Patient is seen awake, alert and oriented, comfortable, in no apparent distress. HEENT: Extraocular muscles are intact. Tongue is moist. NECK: Supple. Jugular veins are not elevated. There is a right IJ tunneled hemodialysis catheter. LUNGS: Clear to auscultation bilaterally. Equal air entry. No rale or rhonchi. HEART: Heart sounds are regular, S1 and S2. There is trace leg edema. Peripheral pulses are palpable. ABDOMEN: Soft and nontender. There is no organomegaly. MUSCULOSKELETAL: No clubbing or cyanosis. NEUROLOGIC: No focal deficit. Power is 5/5 in all extremities. Alert and oriented, interactive and conversational. LABORATORY DATA: White count 4.2, hemoglobin 8.8, platelets 120,000, sodium 133, potassium 3.7, bicarbonate 20, BUN 34. INPATIENT MEDICATIONS: Reviewed by myself. He is receiving Ciprofloxacin 500 mg p.o. daily, loperamide p.r.n., Flagyl 500 mg p.o. q. 8 hourly. The remainder of medications are unchanged as compared to yesterday. PROBLEMS: 1. 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 Patient had his first hemodialysis treatment on Saturday. It was in the setting of recurrent metabolic acidosis and hyperkalemia. He tolerated his treatment very well and he is being dialyzed again today and he will need arrangement of outpatient hemodialysis and hopefully his kidney function will improve with chemotherapy and treatment of myeloma. 2. Diarrhea after chemotherapy and radiation. The patient is symptomatically much improved. He is on Lomotil and he is also receiving oral Ciprofloxacin and Flagyl and he has good oral intake and does not require any further IV fluids at this time. 3. Metabolic acidosis. It is improving on hemodialysis. He no longer needs bicarbonate supplementation. 4. Hypocalcemia. The patient is being dialyzed with a 3.0 mEq calcium bath and he is also on Calcitriol. When he was initially diagnosed with multiple myeloma he presented with hypercalcemia, however he did receive a dose of Xgeva at the time and now has become persistently hypocalcemic with an elevated parathyroid hormone level and it will continued to be monitored in the outpatient setting. 5. Pancytopenia secondary to multiple myeloma. He was transfused 2 units of packed red blood cell. He feels much better. Hemoglobin is up to 8.8. He is also on Aranesp. Further management of his blood disorder is as per Hematology given his multiple myeloma.
[2020-08-29] MEDS: metroNIDAZOLE (FLAGYL) 500MG TABLET PO SCH ×2 (17:56→21:07)
[2020-08-29 18:00] VITALS: BP 148/77
[2020-08-29 22:00] VITALS: BP 159/79
[2020-08-30 06:00] VITALS: BP 153/79
[2020-08-30] MEDS: CIPROFLOXACIN 500MG TABLET PO SCH (06:00)
[2020-08-30] MEDS: metroNIDAZOLE (FLAGYL) 500MG TABLET PO SCH ×2 (06:00→14:20)
[2020-08-30 06:31] LABS: HEMATOCRIT 25.9 % (42.0-52.0); MEAN CORPUSCULAR HEMOGLOBIN 32.4 pg (27.0-33.0); MEAN CORPUSCULAR HGB CONC 34.7 g/dl (32.0-36.5); MEAN CORPUSCULAR VOLUME 93.2 fl (80.0-96.0); PLATELET COUNT, AUTOMATED 127 10^3/uL (150-450); RED BLOOD COUNT 2.78 10^6/uL (4.30-6.10); WHITE BLOOD COUNT 4.2 10^3/uL (4.0-10.0)
[2020-08-30 06:53] LABS: CALCIUM LEVEL 8.3 MG/DL (8.8-10.2); CREATININE FOR GFR 3.57 MG/DL (0.70-1.30); GLOMERULAR FILTRATION RATE 18.2 (>49)
[2020-08-30] MEDS: MULTIVITAMINS/MINERALS THERAP 1 TAB PO SCH (08:26)
[2020-08-30] MEDS: CALCITRIOL 0.25 MCG CAP (S0169) PO SCH (08:27)
[2020-08-30] MEDS: CALCIUM/VITAMIN D 500 MG TAB PO SCH (08:27)
[2020-08-30] MEDS: LOMOTIL 2.5MG/0.025MG TABLET PO SCH ×2 (08:27→12:16)
--- NOTE | 2020-08-30 12:18 | IPN ---
PROGRESS NOTE DATE: 08/30/2020 SUBJECTIVE: Peter is seen and examined this morning at the bedside. He reports no complaints. He was dialyzed yesterday. It was his second hemodialysis treatment. He tolerated it without any issues. He reports he feels much better than he has in a while. He reports improved energy and better appetite. He has been set up for outpatient hemodialysis on a Saturday, , and Saturday schedule at 11:15 a.m. and he is discharge pending this afternoon. OBJECTIVE: VITAL SIGNS: T-max 100.0, T-current 100.0, pulse 103, respiratory rate 18, blood pressure 153/79, saturating 93% on room air. INTAKE AND OUTPUT: Intake yesterday was 2.4 liters. Urine output was 2.1 liters. Hemodialysis removed 400 mL. Weight on the bed scale today is not recorded. GENERAL: The patient is seen awake, alert, and oriented; comfortable, in no apparent distress. HEENT: Extraocular muscles are intact. Tongue is moist. NECK: Supple. Jugular veins are not elevated. There is a right IJ tunneled hemodialysis catheter with a clean dressing. LUNGS: Clear to auscultation bilaterally. Equal air entry. No rales or rhonchi. HEART: Regular and mildly tachycardic, S1, S2. There is trace leg edema. Peripheral pulses are palpable. ABDOMEN: Soft and nontender. There is no organomegaly. MUSCULOSKELETAL: No clubbing or cyanosis. There is at most only trace edema in the legs. NEUROLOGIC: No focal deficit. Power is 5/5 in all extremities. Alert, oriented, interactive, and at baseline mentation. LABORATORY DATA: Today's laboratory studies show sodium 134, potassium 4.0, bicarbonate 27, BUN 19, creatinine 3.5. Hemoglobin 9.9, platelets 127,000. His GI PCR returned negative. INPATIENT MEDICATIONS: Reviewed by myself and no changes noted as compared to yesterday. PROBLEMS: 1. 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 The patient was started on hemodialysis on this admission and had his second treatment on Saturday. He is set up now for outpatient hemodialysis on a Saturday, , and Saturday schedule at 11:15 in the morning, and we will continue to dialyze him with close watch on renal function and hopefully, he will have renal recovery with chemotherapy and treatment of his myeloma. 2. Diarrhea after chemotherapy and radiation. The patient is symptomatically improved. His gastrointestinal (GI) panel was negative. He is on ciprofloxacin and Flagyl, and he has been off of intravenous (IV) fluids for a couple of days, and doing well with his diet. 3. Hypocalcemia. It is improved. He is on Calcitriol and dialysis has helped as well. When he was initially diagnosed with multiple myeloma, he presented with hypercalcemia; however, he did receive a dose of XGEVA at the time and now has become persistent hypocalcemic with an elevated parathyroid hormone level (of greater than 100), and we will continue to monitor his calcium, phosphorus, and parathyroid hormone through the dialysis unit. 4. Pancytopenia secondary to multiple myeloma. He was transfused two units of packed red blood cells on this admission. He feels much better. His hemoglobin has come up. He is also on Aranesp and further management of his blood disorder is as per hematology given his multiple myeloma. 5. Disposition. The patient is stable for discharge from a nephrology point of view with follow-up in the dialysis clinic on Saturday, , and Saturday. First outpatient hemodialysis has been arranged for 09/01 at 11:15 a.m.
[2020-08-30] MEDS ORDERED: CALC1CAP31 PO (13:11)
[2020-08-30] MEDS ORDERED: CALCD50TA PO (13:11)
[2020-08-30] MEDS ORDERED: MI-A80CH PO (13:11)
[2020-08-30] MEDS ORDERED: ANTI2TAB16 PO (13:11)
[2020-08-30 14:00] VITALS: BP 147/80
--- NOTE | 2020-08-30 20:48 | DS.PDOC ---
Discharge Summary General Date of Admission Aug 25, 2020 at 12:48 Date of Discharge 08/30/20 Attending Physician: Vani Montes MD Discharge Summary HISTORY OF PRESENT ILLNESS: This is a 70-year-old full code with recent diagnosis of multiple myeloma with extensive lytic lesions in the bones, seen at the [facility] on August 04, 2020 because of right hip pain. After falling April 29, patient was found to have a high calcium level of 13.8, creatinine of 3.9. Patient was admitted to the hospital from August 03 to August 08 when he was diagnosed with multiple myeloma, serum protein electrophoresis, had M spikes. Patient was discharged and follows with Dr. Gleason at the [facility] and started on Velcade and radiation. Patient was also given cyclophosphamide, Dexamethasone and radiation. Patient said that he had radiation completed last week and since then, he has been having 2-3 bouts of diarrhea during the day. He denies any lightheadedness, dizziness, weakness or fatigue. He has not noted any concentrated urine and since his urine has been clear or light yellow at home, he says he drinks at least 6 to 7 cups of liquids daily. He went to Dr. Marshall's office today, nephrology, for routine blood testing and follow-up of his multiple myeloma and renal failure, and was found to have elevated creatinine now at stage 4 as well as electrolyte abnormalities with hyperkalemia and metabolic acidosis. Hospitalist was called to admit the patient for worsening renal dysfunction secondary to dehydration, most likely due to radiation or neuritis and related to chemotherapy. HOSPITAL COURSE: Patient's acute on chronic renal failure, now end-stage stage V secondary to hypovolemia, worsening myeloma steadily improved with Patient underwent right dialysis catheter placement and had a first session of dialysis on 08/27/2020 with improvement in electrolytes and acid-base balance, as well as his previous oliguria. Patient is urinating well currently. Still undergoing hemodialysis today per nephrology recommendations to continue after discharge. Multiple myeloma with chemotherapy-induced pancytopenia improved s/p transfusion on 08/09 . Diarrhea was likely 2/2 to chemotherapy, radiation. Gastrointestinal (GI) panel was negative. As needed loperamide will be prescribed at discharge. F/u with nephrology, oncology after discharge 08/30/20. PAST MEDICAL HISTORY: Multiple myeloma, hyperlipidemia, trauma to the right hip; status post fall April 2020. PAST SURGICAL HISTORY: Patient had a port placed. SOCIAL HISTORY: Retired from [employer]. No alcohol or recreational drug use. Denies any cigarette use. Patient is a full code. is the healthcare proxy. ALLERGIES: Please see below. DISCHARGE MEDICATIONS: Please see below. PHYSICAL EXAMINATION: CONSTITUTIONAL: No acute distress, resting comfortably, AAO x 3 EYES: PERRLA, EOM intact HENT, MOUTH: Normocephalic, atraumatic, moist mucous membranes, NECK: SUPPLE, no JVD, no lymphadenopathy, no carotid bruit CV: Regular rate and rhythm, S1S2 normal, no murmurs/rubs/gallops CHEST: RIGHT dialysis catheter RESPIRATORY: Clear to auscultation bilaterally, no rales/rhonchi/wheezes GI: BS positive in 4 quadrants, soft, nontender, nondistended, no rebound or guarding, no organomegaly : Deferred MUSCULOSKELETAL: Normal ROM. No cyanosis, clubbing, swelling, joint deformity, +2 pitting b/l lower extremity edema INTEGUMENTARY: Intact, no rashes, no lesions, no erythema NEUROLOGIC: Cranial Nerves II-XII are intact, no focal deficits PSYCHIATRIC: Mood and affect are normal LABORATORY DATA: Please see below ASSESSMENT: 70-year-old male with recent diagnosis of multiple myeloma, undergoing chemotherapy and radiation, presented to the emergency room with abnormal electrolytes with severe metabolic acidosis, worsening renal failure, and hyperkalemia. PLAN: Acute on chronic renal failure, now end-stage stage V secondary to hypovolemia, worsening myeloma. -Patient feels improved -Per nephrology, until chemotherapy is underway regularly, this issue will not improve -Patient underwent right internal jugular (IJ) catheter placement and had a first session of dialysis on 08/27/2020 with improvement in electrolytes and acid-base balance, as well as his previous oliguria. Patient is urinating well currently. -[facility]phrology following closely Multiple myeloma with chemotherapy-induced pancytopenia. - Patient was transfused 08/27/2020 with stable hemoglobin and hematocrit since admission. -F/u with heme/onc, PCP and nephrology Diarrhea likely 2/2 to chemotherapy -Gastrointestinal (GI) panel was negative. -Loperamide PRN. -Eating and drinking well DISPOSITION: Discharge today with HD chair, f/u with Dr. Marshall TIME SPENT ON DISCHARGE: Greater than 35 minutes. Vital Signs/I&Os Vital Signs Date Time Temp Pulse Resp B/P (MAP) Pulse Ox O2 Delivery O2 Flow Rate FiO2 08/30/20 14:00 99.2 105 18 147/80 (102) 96 Room Air 08/26/20 16:35 2 I&O- Last 24 Hours up to 6 AM 08/30/20 06:00 Intake Total 2130 ml Output Total 2500 ml Balance -370 ml Laboratory Data Labs 24H Laboratory Tests 2 08/30/20 06:16: Nucleated Red Blood Cells % (auto) 0.5H, Anion Gap 6L, Glomerular Filtration Rate 18.2L, Calcium Level 8.3L CBC/BMP Laboratory Tests 08/30/20 06:16 Microbiology Microbiology 08/27/20 Gastrointestinal Tract Panel (PCR) - Final, Complete Discharge Medications Scheduled Acyclovir (Acyclovir) 400 Mg Tablet, 1 TAB PO BID Ascorbic Acid (Vitamin C) 500 Mg Tablet, 500 MG PO DAILY, (Reported) Calcitriol (Calcitriol) 0.25 Mcg Capsule, 0.25 MCG PO DAILY Calcium/Vitamin D (Calcium 500-Vit D3 200 Tablet) 1 Each Tablet, 1,000 MG PO BID Cyclophosphamide (Cyclophosphamide) 50 Mg Capsule, 500 MG PO Days 1,8,15,22 for multiple myeloma cyclophosphamide 10 caps po on days 1,8,15,22 of 28 days cycle Dexamethasone (Dexamethasone) 4 Mg Tablet, 10 TAB PO DAILY Take 10 tabs on Days 1,8,15, and 22. Ferrous Sulfate (Ferrous Sulfate) 325 Mg Tablet, 325 MG PO BID, (Reported) Gluc Dahl/Chondro Dahl A/Vit C/Mn (Glucosamine Chondroitin Tab) 1 Each Tablet, 1 TAB PO DAILY, (Reported) Multivitamins (Thera M Plus Tablet) 1 Each Tablet, 1 TAB PO DAILY, (Reported) Ondansetron HCl (Ondansetron HCl) 8 Mg Tablet, 8 MG PO TID for nausea / vomitting Patiromer Calcium Sorbitex (Veltassa) 8.4 Gm Powd.pack, 8.4 GM PO 2XW, (Reported) NO SPECIFIC DAYS Sodium Bicarbonate (Sodium Bicarbonate) 650 Mg Tablet, 650 MG PO BID, (Reported) HAS NOT BEEN TAKING DUE TO CAUSING GASTRO ISSUES Ubidecarenone (Co Q-10) 100 Mg Capsule, 100 MG PO DAILY, (Reported) Scheduled PRN Acetaminophen (Acetaminophen) 325 Mg Tablet, 650 MG PO Q6H PRN for PAIN, (Re ported) Loperamide HCl (Anti-Diarrheal) 2 Mg Tablet, 2 MG PO Q6HP PRN for DIARRHEA Prochlorperazine Maleate (Prochlorperazine Maleate) 10 Mg Tablet, 10 MG PO Q6H PRN for NAUSEA Simethicone (Mi-Acid) 80 Mg Tab.chew, 80 MG PO Q6HP PRN for GAS PAIN Allergies Coded Allergies: No Known Allergies (Unverified , 08/04/20) Vani Montes MD Aug 30, 2020 20:48
== END 2020-08-30 16:27 | disposition home or self-care (01) | DRG 393 ==
LOC: M ED 10:32 → M ED INP 12:48 → ENRESERV 14:51 → M MSPAV 15:25
PROVIDERS: ADMIT General Practice; ATTEND Internal Medicine
PROC: 02HV33Z Insertion of Infusion Device into Superior Vena Cava, Percutaneous Approach (ICD-10-PCS; 2020-08-26)
PROC: 0JH63XZ Insertion of Tunneled Vascular Access Device into Chest Subcutaneous Tissue and Fascia, Percutaneous Approach (ICD-10-PCS; 2020-08-26)
PROC: 5A1D70Z Performance of Urinary Filtration, Intermittent, Less than 6 Hours Per Day (ICD-10-PCS; principal; 2020-08-27)
PROC: 30233N1 Transfusion of Nonautologous Red Blood Cells into Peripheral Vein, Percutaneous Approach (ICD-10-PCS; 2020-08-27)
DX: K52.1 Toxic gastroenteritis and colitis (principal); D61.810 Antineoplastic chemotherapy induced pancytopenia; C90.00 Multiple myeloma not having achieved remission; E87.1 Hypo-osmolality and hyponatremia; E87.2 Acidosis; C79.51 Secondary malignant neoplasm of bone; N17.9 Acute kidney failure, unspecified; N18.5 Chronic kidney disease, stage 5; E87.5 Hyperkalemia; T45.1X5A Adverse effect of antineoplastic and immunosuppressive drugs, initial encounter; D63.0 Anemia in neoplastic disease; D69.6 Thrombocytopenia, unspecified; E83.52 Hypercalcemia; E78.5 Hyperlipidemia, unspecified; E83.42 Hypomagnesemia; E83.51 Hypocalcemia; Z95.828 Presence of other vascular implants and grafts; Z79.899 Other long term (current) drug therapy; Z20.822 Contact with and (suspected) exposure to COVID-19; Z87.891 Personal history of nicotine dependence

== ENCOUNTER 2020-09-07 06:45 | Emergency (ER) | payer MEDICARE ==
[~2020-09-07] VITALS: Ht 167.6 cm; Wt 82.7 kg
[~2020-09-07 06:45] MED LIST changes: +ANTI2TAB16 PO; +CALCD50TA PO; +FERR1TAB8 PO; +MI-A80CH PO; +OYST1TAB PO; -PATIROMER SORBITEX CALCIUM 8.4 GM POWDER PACKET (VELTASSA) PO SCH
[2020-09-07 08:16] LABS: HEMATOCRIT 24.5 % (42.0-52.0); HEMOGLOBIN 8.3 g/dl (13.5-17.5); MEAN CORPUSCULAR HEMOGLOBIN 31.7 pg (27.0-33.0); MEAN CORPUSCULAR HGB CONC 33.9 g/dl (32.0-36.5); MEAN CORPUSCULAR VOLUME 93.5 fl (80.0-96.0); PLATELET COUNT, AUTOMATED 168 10^3/uL (150-450); RED BLOOD COUNT 2.62 10^6/uL (4.30-6.10); WHITE BLOOD COUNT 5.1 10^3/uL (4.0-10.0)
[2020-09-07 08:44] LABS: LYMPHOCYTES 6 % (16-44); MONOCYTES 12 % (0-5); NEUTROPHILS 82 % (28-66); OVALOCYTES 1+; PLATELET ESTIMATE NORMAL (NORMAL)
[2020-09-07 08:48] LABS: ALBUMIN 2.3 GM/DL (3.2-5.2); BILIRUBIN,DIRECT 0.2 MG/DL (0.0-0.2); BILIRUBIN,TOTAL 0.6 MG/DL (0.2-1.0); CALCIUM LEVEL 6.7 MG/DL (8.8-10.2); CREATININE FOR GFR 3.97 MG/DL (0.70-1.30); GLOMERULAR FILTRATION RATE 16.1 (>49); MB/CK RELATIVE INDEX 0.52 (< OR =4); POTASSIUM SERUM 3.7 MEQ/L (3.5-5.1); TOTAL PROTEIN 4.9 GM/DL (6.4-8.2); TROPONIN I 0.05 NG/ML (< 0.10)
--- NOTE | 2020-09-07 08:55 | REP ---
INDICATION: DYSPNEA/COUGH. COMPARISON: Chest 08/25/2020, CT 08/04/2020 TECHNIQUE: AP portable seated chest FINDINGS: There is now a right jugular dialysis catheter tip extending into the right atrium. No evidence of pneumothorax. There is bibasilar subsegmental atelectatic change. Accentuation of the fissures above the right diaphragm as seen on previous radiograph and chest CT. Some basilar atelectatic changes bilaterally. Small effusion may be present on the left. No dense consolidation with air bronchograms visible on the portable chest. Expansile lytic lesion in the posterior right 7th rib and healing pathologic fractures of the left posterior lateral 7th and 8th ribs noted. Lytic lesions in the humeral heads are present. Degenerative changes in the AC joints. Heart size not enlarged. No vascular redistribution or edema. The aorta is mildly tortuous without aneurysm. Airway intact. No free air under the diaphragm. IMPRESSION: Interval placement right jugular dialysis catheter with tip in the right atrium. No pneumothorax or effusion on the right. Accentuation the fissural lines in right base as on previous radiograph and CT, no free air under the diaphragm. There is basilar bilateral atelectatic change without dense consolidation or air bronchograms visible. I cannot exclude a small left effusion. No cardiomegaly or edema. Multiple lytic lesions in the ribs, humeral heads and other bones. This also previously known. <Electronically signed by Garfield Barton > 09/07/20 [id number]
[2020-09-07] MEDS ORDERED: XANA0.25 PO (11:47)
[2020-09-07 12:00] VITALS: BP 107/60
--- NOTE | 2020-09-07 20:29 | ECGEPIP ---
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
[2020-09-09] MEDS ORDERED: MIRC50IN IJ (15:01)
[2020-09-09] MEDS ORDERED: DEXA4TA PO (15:26)
[2020-09-09] MEDS ORDERED: COVI100V IM (15:28)
[2020-09-09] MEDS ORDERED: ECOT81TA5 PO (15:28)
== END 2020-09-07 12:04 | disposition home or self-care (01) ==
LOC: M ED 06:45
DX: R06.09 Other forms of dyspnea (principal); C90.00 Multiple myeloma not having achieved remission; F41.9 Anxiety disorder, unspecified; N17.9 Acute kidney failure, unspecified; Z79.899 Other long term (current) drug therapy; Z99.2 Dependence on renal dialysis

== ENCOUNTER → 2020-09-18 | Outpatient (CLI) | payer MEDICARE ==
[~2020-09-18] MED LIST changes: +COVI100V IM; +ECOT81TA5 PO; +MIRC50IN IJ; +XANA0.25 PO
== END ==
LOC: M LAB 08:36
PROVIDERS: ATTEND Internal Medicine Nephrology
DX: D64.9 Anemia, unspecified (principal)

== ENCOUNTER 2020-09-19 12:45 | Outpatient (CLI) | payer MEDICARE ==
[~2020-09-19] VITALS: Ht 170.2 cm; Wt 88.6 kg
[2020-09-19] VITALS (8 sets, daily range): BP systolic 139–160; BP diastolic 72–83
[~2020-09-19 12:45] MED LIST changes: +ACYC1TAB PO; -ACYC400T PO; +diphenhydrAMINE 25MG CAP PO SCH
[2020-09-19] MEDS ORDERED: ACETAMINOPHEN 500 MG TAB PO ONE (13:10)
== END 2020-09-19 17:45 | disposition home or self-care (01) ==
LOC: M INFU 12:45
PROVIDERS: ATTEND Internal Medicine Nephrology
DX: D64.9 Anemia, unspecified (principal)
CPT/HCPCS: 36430; P9016

== ENCOUNTER → 2020-11-23 | Outpatient (CLI) | payer MEDICARE ==
[~2020-11-23] MED LIST changes: -diphenhydrAMINE 25MG CAP PO SCH
--- NOTE | 2020-11-24 09:40 | RADONC ---
Radiation Oncology Hx/FUP Radiation Oncology Hx/FUP Date of Service: Nov 23, 2020 Pt Identifier Peter Padgett is a 70 year old male seen for a followup visit today at the department of radiation oncology for a history of multiple myeloma. He presented with a lytic bone lesion in the right acetabulum and iliac bone causing pain. He completed palliative RT to this site 30 Gy in 10 fractions completed 08/19/20. He was started on systemic therapy per Dr. Gleason shortly thereafter. Diagnosis/Treatment History Oncologic History Per Dr. Gleason's recent note: 08/04/20 as inpatient when he was admitted because of pain in the right hip since April 2020 when he fell down on proximal while hunting. Pain got worse and eventually he ended up in emergency room at [facility]. At that t bari patient was found to have acute kidney injury with calcium level of 13.8 and creatinine of 3.91. She was also found to have multiple lytic lesions in the hip and remained hospitalized from July until 08/08/2020. During hospital admission he was seen by nephrology and was given Xgeva as well as hydration with calcitonin. Patient calcium level came down but continued to have high creatinine. CT-guided biopsy of the lytic lesion revealed multiple myeloma and was found to have monoclonal spike on serum protein electrophoresis with to M spikes. One M spike was in mid gamma region 0.1 g/dL and second spike was late gamma region 0.06 g/dL. UIEP revealed free kappa light chains of 8232 and free lambda light chain was 3.9. He underwent palliative RT to the right hip 30 Gy in 10 fractions from 08/08/20-08/19/20 He was started on CyBorD with first dose on 08/23/20. Interval History Mynor reports he feels entirely well. His right hip pain is greatly diminished overall. He only has mild discomfort there when he exerts himself. 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 He is doing well with systemic therapy too, no significant side effects, he is however still dialysis dependent, his Cr remains high. He is going 3x weekly for HD. Appetite is excellent currently and weight is stable. Current Therapy CyBorD/Xgeva from 08/23/20 Stage R-ISS stage II Social History: Non-smoker Non-drinker Allergies / Meds Allergies: Coded Allergies: No Known Allergies (Unverified , 08/04/20) Home Meds Active Scripts Dexamethasone (Dexamethasone) 4 Mg Tablet, 10 TAB PO DAILY, #40 TAB 1 Refill Take 10 tabs on Days 1,8,15, and 22. Prov:DIEGO GLEASON MD 11/04/20 Calcium/Vitamin D (Calcium 500-Vit D3 200 Tablet) 1 Each Tablet, 1000 MG PO BID for 30 Days, #60 TAB Prov:Vani Montes MD 08/30/20 Calcitriol (Calcitriol) 0.25 Mcg Capsule, 0.25 MCG PO DAILY for 30 Days, #30 CAP Prov:Vani Montes MD 08/30/20 Ondansetron HCl (Ondansetron HCl) 8 Mg Tablet, 8 MG PO TID for nausea / vomitting MDD 3 tabs for 10 Days, #30 TAB 4 Refills Prov:DIEGO GLEASON MD 08/12/20 Prochlorperazine Maleate (Prochlorperazine Maleate) 10 Mg Tablet, 10 MG PO Q6H PRN for NAUSEA MDD 4 tabs for 15 Days, #60 TAB 3 Refills Prov:DIEGO GLEASON MD 08/12/20 Cyclophosphamide (Cyclophosphamide) 50 Mg Capsule, 500 MG PO Days 1,8,15,22 for multiple myeloma for 4 Days, #40 CAP 6 Refills cyclophosphamide 10 caps po on days 1,8,15,22 of 28 days cycle Prov:DIEGO GLEASON MD 08/09/20 Acyclovir (Acyclovir) 400 Mg Tablet, 1 TAB PO BID, #60 TAB 3 Refills Prov:DIEGO GLEASON MD 08/09/20 Reported Medications Covid-19 Vacc,Mrna(Moderna)/Pf (Moderna Covid19 Vacc(Unapprov)) 100 Mcg/0.5 Ml Vial, 100 MCG IM, VIAL 09/09/20 Aspirin (Ecotrin) 81 Mg Tablet.dr, 1 TAB PO DAILY for pain for 30 Days, #30 TAB 09/09/20 Methoxy Peg-Epoetin Beta (Mircera) 50 Mcg/0.3 Ml Syringe, 50 MCG IJ Q2WK, SYRINGE 09/09/20 Ferrous Sulfate (Ferrous Sulfate) 325 Mg Tablet, 325 MG PO BID, TAB 08/25/20 Acetaminophen (Acetaminophen) 325 Mg Tablet, 650 MG PO Q6H PRN for PAIN, TAB 08/25/20 Gluc Dahl/Chondro Dahl A/Vit C/Mn (Glucosamine Chondroitin Tab) 1 Each Tablet, 1 TAB PO DAILY, TAB 08/04/20 Ascorbic Acid (Vitamin C) 500 Mg Tablet, 500 MG PO DAILY, TAB 08/04/20 Multivitamins (Thera M Plus Tablet) 1 Each Tablet, 1 TAB PO DAILY, TAB 08/04/20 Ubidecarenone (Co Q-10) 100 Mg Capsule, 100 MG PO DAILY, CAP 08/04/20 Discontinued Scripts Alprazolam (Xanax) 0.25 Mg Tablet, 1 TAB PO QHS MDD 2 Tablet(s), #5 TAB Prov:Alok Howard M.D. 09/07/20 Simethicone (Mi-Acid) 80 Mg Tab.chew, 80 MG PO Q6HP PRN for GAS PAIN for 7 Days, #28 TAB Prov:Vani Montes MD 08/30/20 Loperamide HCl (Anti-Diarrheal) 2 Mg Tablet, 2 MG PO Q6HP PRN for DIARRHEA for 7 Days, #28 TAB Prov:Vani Montes MD 08/30/20 Review of Systems Review of Systems Constitutional: Denies: Chills, Fever, Night Sweats, Fatigue, Weight Loss Eyes: Denies: Pain HEENT: Denies: Head Aches Skin: Denies: Rash Pulmonary: Denies: Dyspnea, Cough Cardiovascular: Denies: Chest Pain, Palpitations Gastrointestinal: Denies: Abdominal Pain Hematologic: Denies: Bruising, Bleeding Excessively Musculoskeletal: Denies: Back pain, Leg pain Neurological: Denies: Weakness, Numbness Psych: Reports: Mood Normal Physical Examination Vital Signs Wt 170 T 97.5 P 94 RR 18 BP 141/87 O2 99% Pain 0 Fatigue 0 General Exam: Positive: Alert, Cooperative, No Acute Distress Eye Exam: Positive: PERRLA, EOMI ENT EXAM: Positive: Atraumatic Neck Exam: Positive: Supple Chest Exam: Positive: Clear to auscultation, Normal air movement Heart Exam: Positive: Rate Normal Abdomen Exam: Positive: Soft Extremity Exam: Negative: Edema Skin Exam: Positive: Nl turgor and temperature Neuro Exam: Positive: Normal Gait, Normal Speech, Cranial Nerves 3-12 NL Psych Exam: Positive: Mental status NL Diagnostic and Laboratory Diagnostic Review Radiologic images, relevant labs and pathology reports were personally reviewed and discussed with Mr. Padgett. Assessment and Plan Impression Assessment Mr. Padgett is a 70 year old male with a history of multiple myeloma. He presented with a lytic bone lesion in the right acetabulum and iliac bone causing pain. He completed palliative RT to this site 30 Gy in 10 fractions completed 08/19/20. He was started on systemic therapy per Dr. Gleason shortly thereafter. He is doing well overall and has no pain complaints today. The right hip is much improved since RT and initiation of systemic therapy. He does however remain HD dependent. As he is stable and has no ongoing pain concerns today I discussed proceeding with PRN follow up for now. I told him to alert Dr. Gleason or myself if a new site of bony or visceral pain develops, we could then explore additional palliative RT. He agrees. Performance Status ECOG 0 Plan PRN follow up for now Seeing Dr. Gleason next month Mr. Padgett was encouraged to call with questions or concerns in the interim period. Billing Statement Total time of [25] minutes was spent preparing for the visit [2], obtaining HPI [3], examining the patient [3], reviewing diagnostic tests [2], discussing management options [7], coordinating care [1], and writing this note [7]. SILVANA ALBERT MD Nov 24, 2020 09:40
== END ==
LOC: M ONCR 13:49
PROVIDERS: ATTEND General Practice
DX: C90.00 Multiple myeloma not having achieved remission (principal); Z79.899 Other long term (current) drug therapy; Z92.3 Personal history of irradiation

== ENCOUNTER → 2021-01-04 | Outpatient (CLI) | payer MEDICARE ==
--- NOTE | 2021-01-04 10:55 | REP ---
INDICATION: RENAL DIALYSIS. COMPARISON: None. TECHNIQUE: Bilateral upper extremity arterial and venous Doppler assessment by ultrasound. But bilateral upper extremity vein mapping study. FINDINGS: There is no evidence of venous thrombosis in either upper extremity. Normal triphasic arterial Doppler waveforms are noted with normal velocities in the upper extremity arterial tree bilaterally. Right upper extremity vein diameter chart: Upper humerus basilic 4.6 mm, cephalic 1.3 mm Lower humerus basilic 3.2 mm, cyst cephalic 1.3 mm Upper forearm basilic 1.4 mm, cephalic 1.1 mm Lower forearm basilic not visualized, cephalic 1.2 mm Median cubital vein 1.8 mm Left upper extremity vein diameter chart: Upper humerus basilic 5.0 mm, cephalic is 0.9 mm Lower humerus basilic 3.5 mm, cephalic not visualized Upper forearm basilic 1.2 mm, cephalic not visualized Lower forearm basilic not visualized, cephalic 0.9 mm Median cubital 3.1 mm Right upper extremity arterial velocity and diameter chart: Axillary PSV 63 cm/S, 8.6 mm Brachial artery PSV 82 cm/S, 6.3 mm Radial artery PSV 59 cm/S, 2.9 mm Ulnar artery 53 cm/S, 2.9 mm Left upper extremity arterial Doppler velocity and diameter chart: Axillary artery PSV 47 cm/S, 7.9 mm Brachial artery 59 cm/S, 6.2 mm Radial artery 60 cm/S, 3.2 mm Ulnar artery 47 cm/S, 2.4 mm IMPRESSION: Bilateral upper extremity vein mapping and arterial Doppler assessment as above. <Electronically signed by Daquan Chamberlain > 01/04/21 [id number]
== END ==
LOC: M RAD 09:02
PROVIDERS: ATTEND Internal Medicine Nephrology
DX: Z99.2 Dependence on renal dialysis (principal)

== ENCOUNTER → 2021-01-25 | Outpatient (REF) | payer MEDICARE ==
[2021-01-25 13:20] LABS: HEMATOCRIT 36.9 % (42.0-52.0); HEMOGLOBIN 12.6 g/dl (13.5-17.5); MEAN CORPUSCULAR HEMOGLOBIN 34.8 pg (27.0-33.0); MEAN CORPUSCULAR HGB CONC 34.1 g/dl (32.0-36.5); MEAN CORPUSCULAR VOLUME 101.9 fl (80.0-96.0); PLATELET COUNT, AUTOMATED 162 10^3/uL (150-450); RED BLOOD COUNT 3.62 10^6/uL (4.30-6.10); WHITE BLOOD COUNT 3.5 10^3/uL (4.0-10.0)
[2021-01-25 13:31] LABS: INR 0.96; PROTHROMBIN TIME 13.2 SECONDS (12.7-14.5)
[2021-01-25 13:32] LABS: PARTIAL THROMBOPLASTIN TIME 31.4 SECONDS (25.9-37.0)
[2021-01-25 13:49] LABS: CALCIUM LEVEL 9.8 MG/DL (8.8-10.2); CREATININE FOR GFR 3.8 MG/DL (0.70-1.30); GLOMERULAR FILTRATION RATE 16.8 (>42); POTASSIUM SERUM 4.7 MEQ/L (3.5-5.1)
== END ==
LOC: M LABDRWAD 12:45
PROVIDERS: ATTEND Advanced Practice Midwife
DX: N18.9 Chronic kidney disease, unspecified (principal); Z79.01 Long term (current) use of anticoagulants
CPT/HCPCS: 36415; 80048; 85027; 85610; 85730; G0463

== ENCOUNTER → 2021-01-27 | Outpatient (CLI) | payer MEDICARE | LOC: M LABSMTC 11:19 | PROVIDERS: ATTEND Anesthesiology | DX: Z01.812 Encounter for preprocedural laboratory examination (principal); Z20.822 Contact with and (suspected) exposure to COVID-19 ==

== ENCOUNTER 2021-02-01 09:19 | Day surgery (SDC) | payer MEDICARE ==
[~2021-02-01] VITALS: Ht 167.6 cm; Wt 71.1 kg
[~2021-02-01 09:19] MED LIST changes: +LIDOCAINE 1% MDV 20ML VIAL SQ PRN; +LR 1,000 ML IV ONE
[2021-02-01] MEDS ORDERED: fentaNYL 100 MCG/2 ML INJECTION (J3010) As Ordered ONE (10:25)
[2021-02-01] MEDS ORDERED: LIDOCAINE 2% 100MG/5ML SDV (FOR ANES.) As Ordered ONE (10:25)
[2021-02-01] MEDS ORDERED: MIDAZOLAM INJ 2MG/2ML VIAL (J2250 PER 1MG) As Ordered ONE (10:25)
[2021-02-01] MEDS ORDERED: propofoL 200 MG/20 ML VIAL As Ordered ONE ×4 (10:25→12:51)
[2021-02-01] MEDS ORDERED: HEPARIN SOD (PORCINE) 5000UNITS/ML 1ML VIAL/SYRINGE As Ordered ONE ×2 (10:58→12:45)
[2021-02-01] MEDS ORDERED: LIDOCAINE 1% SDV 30ML VIAL As Ordered ONE (10:58)
[2021-02-01] MEDS ORDERED: ceFAZolin 2 GM/D5W 50 ML IV BAG (J0690 PER 500MG) As Ordered ONE (11:53)
[2021-02-01 14:01] VITALS: BP 147/75
--- NOTE | 2021-02-01 14:42 | ROOPDOC ---
[facility] Report Of Operation Report of Operation DATE OF PROCEDURE: 02/01/21 PREPROCEDURE DIAGNOSES: Renal failure POSTPROCEDURE DIAGNOSES: Renal failure PROCEDURE PERFORMED: Left arm Brachio-basilic AV fistula creation SURGEON: Daniel Rangel MD ANESTHESIA: MAC and local ESTIMATED BLOOD LOSS: Approximately 10 mL. COMPLICATIONS: None REMARKS: Palpable radial pulse and thrill in fistula FINDINGS: Good size basilic vein and brachial artery SPECIMENS REMOVED: None DESCRIPTION OF PROCEDURE: The patient was brought to the operating room and placed on the operating room table in supine position. After adequate anesthesia was was induced, the patients left arm was then prepped and draped in standard surgical fashion. A linear incision was made with a 15-blade scalpel in between the brachial artery and the basilic vein; which were identified and marked under ultrasound guidance just proximal to the antecubital fossa. Dissection through subcutaneous tissue was performed using electrocautery. The basilic vein was identified and dissected free from its surrounding tissues. Several branches were tied with 3- 0 silk suture and ligated. A long segment of basilic vein was freed. Attention was then made towards the brachial artery. The fascia was encountered and incised with Metzenbaum scissors. The neurovascular bundle was encountered and a 3 cm length of the brachial artery was isolated and encircled with silastic vessel loops proximally and distally. Patient was administered a bolus of 3000 units of IV heparin. The length of the basilic vein was isolated and ligated distally at the level of the antecubital fossa using 2-0 silk suture. An arteriotomy was created with an 11-blade scalpel and extended with Kurtz s cissors. The end of the basilic vein was trimmed for appropriate length and an end-to-side anastomosis was created with two 6-0 Prolene sutures. Local intra- arterial heparinization was administered for this segment of the procedure. Upon release of the silastic loops, prograde flow into the brachial artery was permitted, with good hemostasis. A good palpable thrill was noted along the length of the fistula. There was also a good palpable radial pulse. The wound was irrigated and then closed in layers using 2-0 and 4-0 Vicryl sutures. The skin closed using running 4-0 Monocryl. Dermabond and sterile dressing were then applied. The patient tolerated the procedure well and was transferred to recovery room in stable condition. DANIEL RANGEL MD Feb 01, 2021 14:42
== END 2021-02-01 14:33 | disposition home or self-care (01) ==
LOC: M SDC 09:19
PROVIDERS: ATTEND Surgery Vascular Surgery
DX: N18.6 End stage renal disease (principal); Z99.2 Dependence on renal dialysis; C90.01 Multiple myeloma in remission; Z79.899 Other long term (current) drug therapy; Z79.82 Long term (current) use of aspirin
CPT/HCPCS: 36415; 36819; 84132; J0690; J1644; J2250; J3010

== ENCOUNTER → 2021-03-27 | Outpatient (CLI) | payer MEDICARE ==
[~2021-03-27] MED LIST changes: -LIDOCAINE 1% MDV 20ML VIAL SQ PRN; -LR 1,000 ML IV ONE
--- NOTE | 2021-03-27 17:19 | REP ---
INDICATION: ESRD RENAL FAILURE COMPARISON: None. TECHNIQUE: Real-time sonographic evaluation of the left upper extremity FINDINGS: The patient is status post left brachial basilic arteriovenous fistula January 2021. Inflow vessel brachial artery: 2 cm from the anastomosis this measures 6.8 mm and is 2 mm deep The peak systolic velocity is 347 centimeters/second with a flow volume of 2.54 liters/minute The opening of the anastomosis is 6 mm with a maximal peak systolic velocity of 393 centimeters/second. No stenosis is identified Outflow vessel basilic vein: 2-3 cm from the anastomosis this measures 4.1 mm in diameter and is 9 mm deep. This has a maximal peak systolic velocity of 516 centimeters/second. The flow volume was unable to be obtained 8-10 cm from the anastomosis with vessel measures 13 mm in diameter and is 10 mm deep. The peak systolic velocity in this vessel is 155 centimeters/second with a flow volume of 0.524 liters/minute Distal radial arteries triphasic with a velocity of 50 centimeters/second Distal ulnar artery waveform is triphasic with a velocity of 53 centimeters/second. No stenosis was identified by the technologist performing the exam. IMPRESSION: As above <Electronically signed by Jed Diallo > 03/27/21 [id number]
== END ==
LOC: M RAD 12:01
PROVIDERS: ATTEND Surgery Vascular Surgery
DX: N18.6 End stage renal disease (principal); N17.9 Acute kidney failure, unspecified; Z99.2 Dependence on renal dialysis

== ENCOUNTER → 2021-05-19 | Outpatient (CLI) | payer MEDICARE ==
[~2021-05-19] MED LIST changes: +VELC3.5I SC
== END ==
LOC: M LABSMTC 08:34
PROVIDERS: ATTEND Anesthesiology
DX: Z01.812 Encounter for preprocedural laboratory examination (principal); Z20.822 Contact with and (suspected) exposure to COVID-19

== ENCOUNTER → 2021-05-23 | Outpatient (CLI) | payer MEDICARE ==
[~2021-05-23] MED LIST changes: +ONDA-84 PO; -ONDA8TAB10 PO; -PROC10TA4 PO; +PROC10TA5 PO
== END ==
LOC: M LABSMTC 06-23 08:00
PROVIDERS: ATTEND Anesthesiology
DX: Z01.812 Encounter for preprocedural laboratory examination (principal); Z11.52 Encounter for screening for COVID-19

== ENCOUNTER 2021-05-24 10:30 | Day surgery (SDC) | payer MEDICARE ==
[~2021-05-24] VITALS: Ht 167.6 cm; Wt 75.5 kg
[~2021-05-24 10:30] MED LIST changes: +LR 1,000 ML IV ONE; +ceFAZolin SOD 1 GM in D5W MINI-BAG PLUS 50 ML IV SCH
[2021-05-24] MEDS ORDERED: dexameTHASONE 4 MG/ML 1ML VIAL (J1100 PER 1MG) As Ordered ONE (13:21)
[2021-05-24] MEDS ORDERED: ONDANSETRON 4MG/2ML VIAL As Ordered ONE (13:21)
[2021-05-24] MEDS ORDERED: LIDOCAINE 2% 100MG/5ML SDV (FOR ANES.) As Ordered ONE (13:21)
[2021-05-24] MEDS ORDERED: fentaNYL 100 MCG/2 ML INJECTION (J3010) As Ordered ONE (13:21)
[2021-05-24] MEDS ORDERED: propofoL 200 MG/20 ML VIAL As Ordered ONE (13:21)
[2021-05-24] MEDS ORDERED: HEPARIN SOD (PORCINE) 5000UNITS/ML 1ML VIAL/SYRINGE As Ordered ONE (14:16)
[2021-05-24] MEDS ORDERED: THROMBIN SOLN 5,000 UNITS VIAL As Ordered ONE (15:24)
[2021-05-24] MEDS ORDERED: LIDOCAINE 1% MDV 20ML VIAL As Ordered ONE ×2 (15:25→16:14)
[2021-05-24] MEDS ORDERED: BUPIVACAINE HCL 0.5% 30 ML VIAL As Ordered ONE (15:25)
[2021-05-24] MEDS ORDERED: LIDOCAINE 5% OINT 30GM TUBE As Ordered ONE (15:26)
[2021-05-24] MEDS ORDERED: PHENYLephrine 500MCG 5ML (100MCG/ML) SYRINGE As Ordered ONE (16:13)
[2021-05-24] MEDS ORDERED: PHENYLEPHRINE 10MG/ML 1ML VIAL (J2370 PER 1) As Ordered ONE (16:25)
[2021-05-24] MEDS ORDERED: PERCOCET 5MG/325MG TAB PO PRN (18:10)
[2021-05-24] MEDS ORDERED: LR 1,000 ML IV SCH (18:10)
[2021-05-24] MEDS ORDERED: ONDANSETRON 4MG/2ML VIAL IV PRN (18:10)
[2021-05-24] MEDS ORDERED: METOCLOPRAMIDE INJ 10MG/2ML VIAL (J2765 PER 1) IV PRN (18:10)
[2021-05-24] MEDS ORDERED: fentaNYL 100 MCG/2 ML INJECTION (J3010) IV PRN (18:10)
[2021-05-24 18:47] VITALS: BP 135/80
[2021-05-25] MEDS ORDERED: NS 1,000 ML IV ONE (06:00)
[2021-06-16] MEDS ORDERED: DEXA4TA PO (08:32)
== END 2021-05-24 19:00 | disposition home or self-care (01) ==
LOC: M SDC 10:30
PROVIDERS: ATTEND Surgery Vascular Surgery
DX: N18.5 Chronic kidney disease, stage 5 (principal); C90.00 Multiple myeloma not having achieved remission; Z79.899 Other long term (current) drug therapy; Z92.21 Personal history of antineoplastic chemotherapy; Z92.3 Personal history of irradiation; Z99.2 Dependence on renal dialysis
CPT/HCPCS: 36415; 36819; 84132; J0690; J1100; J1644; J2370; J2405; J3010

== ENCOUNTER → 2021-07-18 | Outpatient (POV) | payer MEDICARE ==
[~2021-07-18] VITALS: Ht 170.2 cm; Wt 77.3 kg
[~2021-07-18] MED LIST changes: +COQ150CH PO; -LR 1,000 ML IV ONE; -ceFAZolin SOD 1 GM in D5W MINI-BAG PLUS 50 ML IV SCH
[2021-07-18 14:35] VITALS: BP 146/71
== END ==
LOC: M IRPOV 14:12
PROVIDERS: ATTEND Radiology Diagnostic Radiology
DX: Z45.2 Encounter for adjustment and management of vascular access device (principal); Z99.2 Dependence on renal dialysis

== ENCOUNTER → 2021-08-07 | Outpatient (CLI) | payer MEDICARE ==
[~2021-08-07] MED LIST changes: +LIDOCAINE 1% MDV 20ML VIAL As Ordered ONE
[2021-08-07 07:58] VITALS: BP 134/61
== END ==
LOC: M IRPRO 07:13
PROVIDERS: ATTEND Radiology Diagnostic Radiology
DX: Z45.2 Encounter for adjustment and management of vascular access device (principal); N18.6 End stage renal disease

== ENCOUNTER → 2022-01-17 | Outpatient (CLI) | payer MEDICARE ==
[~2022-01-17] MED LIST changes: +BAYE81TA10 PO; +DOXY100C3; -GLUCTAB6 PO; +GLUCTAB7 PO; +PRED20TA; +calcium,mag,zinc PO
[2022-01-17 11:52] VITALS: BP 130/68
[2022-01-17 12:04] LABS: BASO % 0.6 % (0.0-1.0); EOS # 0.2 10^3/uL (0.0-0.5); EOS % 3.5 % (0.0-3.0); HEMATOCRIT 32.4 % (42.0-52.0); HEMOGLOBIN 10.9 g/dl (13.5-17.5); LYMPH # 0.2 10^3/uL (1.5-5.0); LYMPH % 4.5 % (24.0-44.0); MEAN CORPUSCULAR HEMOGLOBIN 36.1 pg (27.0-33.0); MEAN CORPUSCULAR HGB CONC 33.6 g/dl (32.0-36.5); MEAN CORPUSCULAR VOLUME 107.3 fl (80.0-96.0); MONO # 0.7 10^3/uL (0.0-0.8); MONO % 14.2 % (2.0-8.0); NEUTROPHILS # 3.7 10^3/uL (1.5-8.5); NEUTROPHILS % 76.6 % (36.0-66.0); PLATELET COUNT, AUTOMATED 150 10^3/uL (150-450); RED BLOOD COUNT 3.02 10^6/uL (4.30-6.10); WHITE BLOOD COUNT 4.9 10^3/uL (4.0-10.0)
== END ==
LOC: M IRPRO 11:02
PROVIDERS: ATTEND Specialist
DX: C90.00 Multiple myeloma not having achieved remission (principal)

== ENCOUNTER → 2023-12-04 | Outpatient (REF) | payer MEDICARE ==
[~2023-12-04] MED LIST changes: +ATOV5SUS PO; +FAMO20TA PO; -LIDOCAINE 1% MDV 20ML VIAL As Ordered ONE; +LOPE1CAP5 PO; +MULTLIQ7 PO; +NIFE-3 PO; +PENI1TAB17 PO; +POMA1CAP PO; +RA B1TAB7 PO; +THERTAB52 PO
[2023-12-04 19:36] LABS: CHOLESTEROL RISK RATIO 4.72 (<5); HDL CHOLESTEROL 34.1 MG/DL (>40); LDL CHOLESTEROL 92.9 MG/DL (<100); NON-HDL-C 126.9 MG/DL; PSA SCREENING 6.88 NG/ML (< 4.00)
[2023-12-04 19:57] LABS: HEMOGLOBIN A1c 5.1 % (4.0-6.0)
== END ==
LOC: M SFHCADAM 11:05
PROVIDERS: ATTEND Family Medicine
DX: E78.49 Other hyperlipidemia (principal); Z13.1 Encounter for screening for diabetes mellitus; Z12.5 Encounter for screening for malignant neoplasm of prostate
CPT/HCPCS: 80061; 83036; G0103

== ENCOUNTER 2024-04-06 07:38 | Outpatient (CLI) | payer MEDICARE ==
[~2024-04-06] VITALS: Ht 172.7 cm; Wt 83.3 kg
[~2024-04-06 07:38] MED LIST changes: +ALBUTEROL SULFATE 2.5MG/0.5ML INH NEB SOLN INH PRN; +EPINEPHrine INJ 1 MG/ML 1ML AMP IM PRN; +EQL160TA PO; +NS 1,000 ML IV SCH; +diphenhydrAMINE 50MG/ML VIAL IV PRN; +methylPREDNISolone 125MG 2ML VIAL IV PRN
[2024-04-06 08:20] VITALS: BP 183/80; O2SAT 95
[2024-04-06] MEDS: diphenhydrAMINE 25MG PO PRIOR TO INFUSION PO ONE (08:31)
[2024-04-06] MEDS: IMMUNE GLOBULIN 10% 40 GM in IV 1 EA IV ONE (08:47)
[2024-04-06 09:30] VITALS: BP 157/69; O2SAT 97
[2024-04-06 10:00] VITALS: BP 145/65; O2SAT 96
[2024-04-06 10:30] VITALS: BP 150/71; O2SAT 97
[2024-04-06 11:30] VITALS: BP 149/84; O2SAT 100
[2024-04-06 12:15] VITALS: BP 148/75; O2SAT 97
== END 2024-04-06 12:20 ==
LOC: M INFU 07:38
PROVIDERS: ATTEND Specialist
DX: C90.00 Multiple myeloma not having achieved remission (principal); D80.1 Nonfamilial hypogammaglobulinemia
CPT/HCPCS: 96365; 96366; J1459

== ENCOUNTER → 2024-04-08 | Outpatient (CLI) | payer MEDICARE ==
[~2024-04-08] MED LIST changes: -ALBUTEROL SULFATE 2.5MG/0.5ML INH NEB SOLN INH PRN; -EPINEPHrine INJ 1 MG/ML 1ML AMP IM PRN; -NS 1,000 ML IV SCH; -diphenhydrAMINE 50MG/ML VIAL IV PRN; -methylPREDNISolone 125MG 2ML VIAL IV PRN
== END ==
LOC: M ADAMS 12:06
PROVIDERS: ATTEND Family Medicine
DX: J18.1 Lobar pneumonia, unspecified organism (principal)

== ENCOUNTER → 2024-04-28 | Outpatient (CLI) | payer MEDICARE ==
[~2024-04-28] MED LIST changes: +AZIT-12; +BENZ-18; +CEFD1CAP9; +LEVO1TAB40 PO
== END ==
LOC: M ADAMS 11:53
PROVIDERS: ATTEND Family Medicine
DX: J18.9 Pneumonia, unspecified organism (principal)

== ENCOUNTER 2024-06-01 08:00 | Outpatient (CLI) | payer MEDICARE ==
[2024-06-01 08:00] VITALS: BP 186/84; O2SAT 97
[~2024-06-01 08:00] MED LIST changes: +ALBUTEROL SULFATE 2.5MG/0.5ML INH NEB SOLN INH PRN; +EPINEPHrine INJ 1 MG/ML 1ML AMP IM PRN; +NS (Normal Saline) 0.9% 1,000 ML IV SCH; +diphenhydrAMINE 50MG/ML VIAL IV PRN; +methylPREDNISolone 125MG 2ML VIAL IV PRN
[2024-06-01 08:51] LABS: BASO # 0.1 10^3/uL (0.0-0.2); EOS # 0.2 10^3/uL (0.0-0.5); EOS % 3.6 % (0.0-3.0); HEMATOCRIT 35.4 % (42.0-52.0); HEMOGLOBIN 11.6 g/dl (13.5-17.5); LYMPH # 0.8 10^3/uL (1.5-5.0); LYMPH % 16.6 % (24.0-44.0); MEAN CORPUSCULAR HGB CONC 32.8 g/dl (32.0-36.5); MEAN CORPUSCULAR VOLUME 97.5 fl (80.0-96.0); MONO # 0.7 10^3/uL (0.0-0.8); MONO % 14.1 % (2.0-8.0); NEUTROPHILS # 3.3 10^3/uL (1.5-8.5); NEUTROPHILS % 64.5 % (36.0-66.0); PLATELET COUNT, AUTOMATED 220 10^3/uL (150-450); RED BLOOD COUNT 3.63 10^6/uL (4.30-6.10); WHITE BLOOD COUNT 5.1 10^3/uL (4.0-10.0)
[2024-06-01 09:29] LABS: ALBUMIN 3.6 G/DL (3.2-5.2); BILIRUBIN,TOTAL 0.4 MG/DL (0.3-1.2); CALCIUM LEVEL 9.7 MG/DL (8.3-10.6); CREATININE FOR GFR 3.25 MG/DL (0.70-1.30); POTASSIUM SERUM 4.3 MMOL/L (3.5-5.1); TOTAL PROTEIN 6.7 G/DL (5.7-8.2)
[2024-06-01] MEDS ORDERED: methylPREDNISolone 40MG 1ML VIAL IV ONE (09:30)
[2024-06-01] MEDS: diphenhydrAMINE 25MG PO PRIOR TO INFUSION PO ONE (09:38)
[2024-06-01] MEDS: IMMUNE GLOBULIN 10% 40 GM in IV 1 EA IV ONE (09:40)
[2024-06-01 10:00] VITALS: BP 146/67; O2SAT 100
[2024-06-01 10:30] VITALS: BP 134/64; O2SAT 99
[2024-06-01 11:00] VITALS: BP 131/69; O2SAT 100
[2024-06-01 12:37] VITALS: BP 158/88; O2SAT 97
[2024-06-02 23:38] LABS: T P ELECTROPHORESIS SO 6.5 g/dL (6.1-8.1)
[2024-06-04 11:08] LABS: FREE LAMBDA LIGHT CHAINS SERUM 15.7 mg/L (5.7-26.3); KAPPA/LAMBDA RATIO SERUM 1.08 (0.26-1.65)
[2024-06-05 06:38] LABS: ALBUMIN SPEP 4.1 g/dL (3.8-4.8); ALPHA-1-GLOBULINS SO 0.4 g/dL (0.2-0.3); BETA 2 GLOBULIN 0.3 g/dL (0.2-0.5); BETA-GLOBULIN SO 0.3 g/dL (0.4-0.6); GAMMA GLOBULINS SO 0.4 g/dL (0.8-1.7); SPEP ABN PROTEIN BAND 1 0.1 g/dL (NONE DETECTED)
== END 2024-06-01 12:45 | disposition home or self-care (01) ==
LOC: M INFU 08:00
PROVIDERS: ATTEND Specialist
DX: C90.00 Multiple myeloma not having achieved remission (principal); D80.1 Nonfamilial hypogammaglobulinemia
CPT/HCPCS: 36592; 80053; 82784; 83521; 84155; 84165; 85025; 86334; 96365; 96366; J1459

== ENCOUNTER → 2024-07-01 | Outpatient (CLI) | payer MEDICARE ==
[~2024-07-01] VITALS: Ht 177.8 cm; Wt 86.0 kg
[~2024-07-01] MED LIST changes: +IMMUNE GLOBULIN 10% 40 GM in IV 1 EA IV ONE; +diphenhydrAMINE 25MG PO PRIOR TO INFUSION PO ONE
[2024-07-01 07:30] VITALS: BP 162/91; O2SAT 97
== END ==
LOC: M INFU 07:15
PROVIDERS: ATTEND Specialist
DX: D80.1 Nonfamilial hypogammaglobulinemia (principal); C90.00 Multiple myeloma not having achieved remission

== ENCOUNTER 2024-07-29 08:00 | Outpatient (CLI) | payer MEDICARE ==
[~2024-07-29 08:00] MED LIST changes: -ALBUTEROL SULFATE 2.5MG/0.5ML INH NEB SOLN INH PRN; -EPINEPHrine INJ 1 MG/ML 1ML AMP IM PRN; -IMMUNE GLOBULIN 10% 40 GM in IV 1 EA IV ONE; -NS (Normal Saline) 0.9% 1,000 ML IV SCH; -diphenhydrAMINE 25MG PO PRIOR TO INFUSION PO ONE; -diphenhydrAMINE 50MG/ML VIAL IV PRN; -methylPREDNISolone 125MG 2ML VIAL IV PRN
[2024-07-30] MEDS: diphenhydrAMINE 25MG PO PRIOR TO INFUSION PO ONE (08:17)
[2024-07-30] MEDS: IMMUNE GLOBULIN 10% 40 GM in IV 1 EA IV ONE (08:19)
[2024-07-30] MEDS ORDERED: diphenhydrAMINE 50MG/ML VIAL IV PRN (08:30)
[2024-07-30] MEDS ORDERED: NS (Normal Saline) 0.9% 1,000 ML IV SCH (08:30)
[2024-07-30] MEDS ORDERED: methylPREDNISolone 125MG 2ML VIAL IV PRN (08:30)
[2024-07-30] MEDS ORDERED: ALBUTEROL SULFATE 2.5MG/0.5ML INH NEB SOLN INH PRN (08:30)
[2024-07-30] MEDS ORDERED: EPINEPHrine INJ 1 MG/ML 1ML AMP IM PRN (08:30)
[2024-07-30 09:20] VITALS: BP 149/69; O2SAT 100
[2024-07-30 09:50] VITALS: BP 143/71; O2SAT 100
[2024-07-30 10:50] VITALS: BP 142/79; O2SAT 100
[2024-07-30 11:30] VITALS: BP 140/63; O2SAT 98
== END 2024-07-30 11:35 ==
LOC: M INFU 08:00
PROVIDERS: ATTEND Specialist
DX: D80.1 Nonfamilial hypogammaglobulinemia (principal)
CPT/HCPCS: 82784; 96365; 96366; J1459

== ENCOUNTER → 2024-10-22 | Outpatient (REF) | payer MEDICARE ==
[~2024-10-22] MED LIST changes: +ACYC-438 PO; -ACYC1TAB PO; +ASPI81TA26 PO; +DARA100V IM
[2024-10-22 13:49] LABS: HEMATOCRIT 36.4 % (42.0-52.0); HEMOGLOBIN 12.1 g/dl (13.5-17.5); MEAN CORPUSCULAR HEMOGLOBIN 32.5 pg (27.0-33.0); MEAN CORPUSCULAR HGB CONC 33.2 g/dl (32.0-36.5); MEAN CORPUSCULAR VOLUME 97.8 fl (80.0-96.0); PLATELET COUNT, AUTOMATED 171 10^3/uL (150-450); RED BLOOD COUNT 3.72 10^6/uL (4.30-6.10); WHITE BLOOD COUNT 6.7 10^3/uL (4.0-10.0)
[2024-10-22 14:12] LABS: ALBUMIN 4.1 G/DL (3.2-5.2); BILIRUBIN,TOTAL 0.5 MG/DL (0.3-1.2); CALCIUM LEVEL 9.3 MG/DL (8.3-10.6); CHOLESTEROL RISK RATIO 4.97 (<5); CREATININE FOR GFR 3.76 MG/DL (0.70-1.30); GLOMERULAR FILTRATION RATE 16.2 (>42); HDL CHOLESTEROL 33.8 MG/DL (>40); LDL CHOLESTEROL 91.6 MG/DL (<100); NON-HDL-C 134.2 MG/DL; PERCENT SATURATION 29.1 % (19.7-50.0); POTASSIUM SERUM 4.1 MMOL/L (3.5-5.1); PSA SCREENING 4.93 NG/ML (< 4.00); TOTAL PROTEIN 6.5 G/DL (5.7-8.2)
[2024-10-22 14:17] LABS: FERRITIN 553.2 NG/ML (10.5-307.3)
[2024-10-22 14:20] LABS: HEMOGLOBIN A1c 5.3 % (4.0-6.0)
== END ==
LOC: M SFHCADAM 10:42
PROVIDERS: ATTEND Family Medicine
DX: Z13.1 Encounter for screening for diabetes mellitus (principal); Z12.5 Encounter for screening for malignant neoplasm of prostate; D63.1 Anemia in chronic kidney disease; R03.0 Elevated blood-pressure reading, without diagnosis of hypertension; E78.49 Other hyperlipidemia
CPT/HCPCS: 80053; 80061; 82728; 83036; 83550; 85027; G0103

== ENCOUNTER 2024-12-12 19:19 | Inpatient (IN) | payer MEDICARE ==
[~2024-12-12] VITALS: Ht 167.6 cm; Wt 85.5 kg
[2024-12-12 20:03] LABS: BASO # 0.0 10^3/uL (0.0-0.2); BASO % 0.0 % (0.0-1.0); EOS # 0.0 10^3/uL (0.0-0.5); EOS % 0.0 % (0.0-3.0); LYMPH # 0.1 10^3/uL (1.5-5.0); LYMPH % 6.8 % (24.0-44.0); MONO # 0.2 10^3/uL (0.0-0.8); MONO % 14.2 % (2.0-8.0); NEUTROPHILS # 1.3 10^3/uL (1.5-8.5); NEUTROPHILS % 78.4 % (36.0-66.0)
[2024-12-12 20:20] LABS: FREE T4 0.87 NG/DL (0.89-1.76)
[2024-12-12 20:28] LABS: PLATELET COUNT, AUTOMATED 33 10^3/uL (150-450)
[2024-12-12 20:46] LABS: ALT/SGPT 36.0 U/L (7.0-40); AST/SGOT 106.0 U/L (<34); CALCIUM LEVEL 8.8 MG/DL (8.3-10.6); CARBON DIOXIDE LEVEL 17.0 MMOL/L (20-31); CHLORIDE LEVEL 93.0 MMOL/L (98-107); CK-MB VALUE MASS 20.2 NG/ML (<3.6); CPK CREATINE PHOSPHOKINASE 3071.0 U/L (46-171); CREATININE FOR GFR 4.02 MG/DL (0.70-1.30); GLOMERULAR FILTRATION RATE 15.0 (>42); MB/CK RELATIVE INDEX 0.65 (< OR =4); POTASSIUM SERUM 4.5 MMOL/L (3.5-5.1); SODIUM LEVEL 127.0 MMOL/L (136-145)
[2024-12-12] MEDS: NS (Normal Saline) 0.9% 1,000 ML IV SCH (20:50)
[2024-12-12] MEDS: MECLIZINE 25 MG TABLET PO ONE (20:52)
[2024-12-12 21:46] LABS: CK-MB VALUE MASS 41.5 NG/ML (<3.6)
[2024-12-12 22:00] LABS: SODIUM,RANDOM URINE 43.0 MMOL/L
[2024-12-12 22:00] LABS: CPK CREATINE PHOSPHOKINASE 7187.0 U/L (46-171); MB/CK RELATIVE INDEX 0.57 (< OR =4)
[2024-12-12 22:49] LABS: ETHYL ALCOHOL (ETHANOL) 0.004 % (0.000-0.010)
[2024-12-12 22:50] LABS: MAGNESIUM LEVEL 1.9 MG/DL (1.8-2.4)
[2024-12-12 22:58] LABS: KETONE, URINE AUTO RFX NEGATIVE (NEGATIVE); LEUKOCYTE ESTERASE UR AUTO RFX NEGATIVE (NEGATIVE); NITRITE, URINE AUTO RFX NEGATIVE (NEGATIVE); RBC, URINE AUTO RFX 12 /HPF (0-3); SQUAM EPITHELIAL CELL UR AURFX 0 /HPF (0-6); WBC, URINE AUTO RFX 1 /HPF (0-3)
[2024-12-12 23:01] LABS: ERYTHROCYTE SEDIMENTATION RATE 38 mm/hr (0-20)
[2024-12-12 23:04] LABS: INR 1.07
[2024-12-12 23:32] LABS: C REACTIVE PROTEIN QUANTITATIV 17.14 MG/DL (<1.0)
[2024-12-12 23:43] LABS: VENOUS BASE EXCESS -8.6 (-2.0-2.0); VENOUS HCO3 16.1 MMOL/L (23.0-27.0); VENOUS O2 SATURATION 67.9 % (60.0-80.0); VENOUS PARTIAL PRESSURE CO2 31.4 mmHg (38.0-50.0); VENOUS PARTIAL PRESSURE O2 36.3 mmHg (30.0-50.0); VENOUS PH 7.328 UNITS (7.330-7.430); VENOUS STANDARD HCO3 17.0 MMOL/L; VENOUS TOTAL CO2 17.1 MMOL/L (24.0-28.0)
[2024-12-12] MEDS ORDERED: CALC1CAP31 PO (23:43)
[2024-12-12] MEDS ORDERED: HOME MED LIST COMPLETE! XX SCH (23:50)
[2024-12-13] VITALS (26 sets, daily range): BP systolic 98–170; BP diastolic 52–78; TEMP 97.6–103.8; O2SAT 85–99
[2024-12-13] MEDS ORDERED: MAALOX 30 ML SUSP *UDC PO PRN (00:50)
[2024-12-13] MEDS ORDERED: VITA1TAB82 PO (01:32)
[2024-12-13] MEDS ORDERED: POMA1CAP PO (01:32)
[2024-12-13] MEDS ORDERED: CALC1CAP31 PO (01:32)
[2024-12-13] MEDS ORDERED: OYST1TAB PO (01:32)
[2024-12-13] MEDS ORDERED: HOME MED LIST COMPLETE! XX SCH (01:40)
[2024-12-13] MEDS: NS (Normal Saline) 0.9% 1,000 ML IV SCH (03:19)
[2024-12-13 03:39] LABS: CK-MB VALUE MASS 58.5 NG/ML (<3.6)
[2024-12-13 03:54] LABS: CPK CREATINE PHOSPHOKINASE 18576.0 U/L (46-171); MB/CK RELATIVE INDEX 0.31 (< OR =4)
[2024-12-13] MEDS: LR 1,000 ML IV ONE (06:04)
[2024-12-13 07:13] LABS: OSMOLALITY SERUM 281.0 MOSM/KG (280-301)
[2024-12-13 07:32] LABS: CALCIUM LEVEL 8.5 MG/DL (8.3-10.6); CARBON DIOXIDE LEVEL 15.0 MMOL/L (20-31); CHLORIDE LEVEL 98.0 MMOL/L (98-107); CPK CREATINE PHOSPHOKINASE 21627.0 U/L (46-171); CREATININE FOR GFR 3.95 MG/DL (0.70-1.30); GLOMERULAR FILTRATION RATE 15.3 (>42); MAGNESIUM LEVEL 1.8 MG/DL (1.8-2.4); PHOSPHORUS LEVEL 4.7 MG/DL (2.4-5.1); POTASSIUM SERUM 3.3 MMOL/L (3.5-5.1); SODIUM LEVEL 129.0 MMOL/L (136-145)
[2024-12-13 08:20] LABS: PLATELET COUNT, AUTOMATED 19 10^3/uL (150-450)
[2024-12-13 08:26] LABS: EOSINOPHILS 1 % (0-3); LYMPHOCYTES 21 % (16-44); MONOCYTES 10 % (0-5); NEUTROPHILS 60 % (28-66); PLATELET ESTIMATE MARKED DECREASE (NORMAL)
[2024-12-13] MEDS: NIFEdipine 30 MG XL TAB PO SCH (08:41)
[2024-12-13] MEDS: ACYCLOVIR 200 MG CAPSULE PO SCH (08:42)
[2024-12-13] MEDS ORDERED: CEFEPIME HCL IV SCH (09:15)
[2024-12-13] MEDS ORDERED: MINI IV SCH (09:15)
[2024-12-13] MEDS ORDERED: ADV IV SCH (09:15)
[2024-12-13] MEDS ORDERED: DEXTROSE 5% IV SCH (09:15)
[2024-12-13 09:27] LABS: CK-MB VALUE MASS 40.0 NG/ML (<3.6)
[2024-12-13 10:02] LABS: CPK CREATINE PHOSPHOKINASE 23152.0 U/L (46-171); MB/CK RELATIVE INDEX 0.17 (< OR =4)
[2024-12-13] MEDS: PANTOPRAZOLE 40MG VIAL IV SCH (11:57)
[2024-12-13] MEDS: CEFEPIME HCL 1 GM in DEXTROSE 5% (D5W) ADV/MINI-BAG 50 ML IV SCH (11:57)
[2024-12-13] MEDS: CALCITRIOL 0.25 MCG CAP (S0169) PO SCH (11:58)
[2024-12-13 12:02] LABS: ALT/SGPT 97.0 U/L (7.0-40); AST/SGOT 443.0 U/L (<34)
[2024-12-13] MEDS: SODIUM BICARBONATE 150 MEQ, POTASSIUM CHLORIDE INJ 20 MEQ in STERILE WATER LITER BAG 1,... IV SCH (15:02)
[2024-12-13] MEDS: ACETAMINOPHEN 325 MG TAB PO PRN (15:03)
[2024-12-13] MEDS: DOXYCYCLINE HYCLATE 100 MG in DEXTROSE 5% (D5W) MINI-BAG PLU 100 ML IV SCH (16:58)
[2024-12-13] MEDS: DIAPER RELIEF PASTE 60 GM TOP SCH (16:59)
[2024-12-13] MEDS: ACETAMINOPHEN *IV* 1,000 MG in IV 1 EA IV ONE (20:21)
[2024-12-14] VITALS (15 sets, daily range): BP systolic 100–133; BP diastolic 55–68; TEMP 96.8–99.8; O2SAT 93–99
[2024-12-14 05:56] LABS: BASO # 0.0 10^3/uL (0.0-0.2); BASO % 0.6 % (0.0-1.0); EOS # 0.0 10^3/uL (0.0-0.5); EOS % 0.0 % (0.0-3.0); LYMPH # 0.2 10^3/uL (1.5-5.0); LYMPH % 9.8 % (24.0-44.0); MONO # 0.4 10^3/uL (0.0-0.8); MONO % 20.2 % (2.0-8.0); NEUTROPHILS # 1.2 10^3/uL (1.5-8.5); NEUTROPHILS % 68.8 % (36.0-66.0)
[2024-12-14 06:04] LABS: PLATELET COUNT, AUTOMATED 14 10^3/uL (150-450)
[2024-12-14 06:22] LABS: CALCIUM LEVEL 7.9 MG/DL (8.3-10.6); CARBON DIOXIDE LEVEL 19.0 MMOL/L (20-31); CHLORIDE LEVEL 101.0 MMOL/L (98-107); CREATININE FOR GFR 3.86 MG/DL (0.70-1.30); GLOMERULAR FILTRATION RATE 15.7 (>42); MAGNESIUM LEVEL 2.0 MG/DL (1.8-2.4); POTASSIUM SERUM 3.1 MMOL/L (3.5-5.1); SODIUM LEVEL 133.0 MMOL/L (136-145)
[2024-12-14 06:37] LABS: CPK CREATINE PHOSPHOKINASE 19780.0 U/L (46-171)
[2024-12-14] MEDS: POTASSIUM CHLORIDE 10MEQ SR TABLET PO SCH (09:30)
[2024-12-15] VITALS (17 sets, daily range): BP systolic 129–150; BP diastolic 60–66; TEMP 97.5–98.5; O2SAT 94–98
[2024-12-15 06:52] LABS: BASO # 0.0 10^3/uL (0.0-0.2); BASO % 1.1 % (0.0-1.0); EOS # 0.0 10^3/uL (0.0-0.5); EOS % 0.6 % (0.0-3.0); LYMPH # 0.1 10^3/uL (1.5-5.0); LYMPH % 7.8 % (24.0-44.0); MONO # 0.3 10^3/uL (0.0-0.8); MONO % 13.9 % (2.0-8.0); NEUTROPHILS # 1.4 10^3/uL (1.5-8.5); NEUTROPHILS % 76.0 % (36.0-66.0)
[2024-12-15 06:56] LABS: PLATELET COUNT, AUTOMATED 17 10^3/uL (150-450)
[2024-12-15 07:13] LABS: CALCIUM LEVEL 7.9 MG/DL (8.3-10.6); CARBON DIOXIDE LEVEL 24.0 MMOL/L (20-31); CHLORIDE LEVEL 100.0 MMOL/L (98-107); CREATININE FOR GFR 3.62 MG/DL (0.70-1.30); GLOMERULAR FILTRATION RATE 17.0 (>42); POTASSIUM SERUM 3.1 MMOL/L (3.5-5.1); SODIUM LEVEL 135.0 MMOL/L (136-145)
[2024-12-15 07:32] LABS: CPK CREATINE PHOSPHOKINASE 8289.0 U/L (46-171)
[2024-12-15] MEDS ORDERED: ACYCLOVIR 200 MG CAPSULE PO ONE (10:25)
[2024-12-15] MEDS: POTASSIUM CHLORIDE 10MEQ SR TABLET PO ONE (10:40)
[2024-12-15] MEDS: TAMSULOSIN 0.4 MG CAP PO SCH (10:57)
[2024-12-15] MEDS: DOXYCYCLINE HYCLATE 100 MG TABLET PO SCH (20:44)
[2024-12-15] MEDS ORDERED: TAMSULOSIN 0.4 MG CAP PO SCH (21:00)
[2024-12-15] MEDS ORDERED: ACYCLOVIR 200 MG CAPSULE PO SCH (21:00)
[2024-12-16 04:11] VITALS: BP 141/72; TEMP 97.1; O2SAT 98
[2024-12-16 06:34] LABS: BASO # 0.0 10^3/uL (0.0-0.2); BASO % 1.5 % (0.0-1.0); EOS # 0.1 10^3/uL (0.0-0.5); EOS % 4.9 % (0.0-3.0); LYMPH # 0.3 10^3/uL (1.5-5.0); LYMPH % 12.1 % (24.0-44.0); MONO # 0.3 10^3/uL (0.0-0.8); MONO % 12.6 % (2.0-8.0); NEUTROPHILS # 1.4 10^3/uL (1.5-8.5); NEUTROPHILS % 68.4 % (36.0-66.0)
[2024-12-16 06:36] LABS: PLATELET COUNT, AUTOMATED 22 10^3/uL (150-450)
[2024-12-16 07:13] LABS: CALCIUM LEVEL 8.2 MG/DL (8.3-10.6); CARBON DIOXIDE LEVEL 24.0 MMOL/L (20-31); CHLORIDE LEVEL 104.0 MMOL/L (98-107); CPK CREATINE PHOSPHOKINASE 3644.0 U/L (46-171); CREATININE FOR GFR 3.54 MG/DL (0.70-1.30); GLOMERULAR FILTRATION RATE 17.4 (>42); POTASSIUM SERUM 3.6 MMOL/L (3.5-5.1); SODIUM LEVEL 140.0 MMOL/L (136-145)
[2024-12-16 08:13] VITALS: BP 140/65; TEMP 97.4; O2SAT 98
[2024-12-16 08:57] LABS: CK-MB VALUE MASS 7.4 NG/ML (<3.6)
[2024-12-16 09:14] LABS: CPK CREATINE PHOSPHOKINASE 3662.0 U/L (46-171); MB/CK RELATIVE INDEX 0.2 (< OR =4)
[2024-12-16] MEDS: ACYCLOVIR 200 MG CAPSULE PO SCH (09:20)
[2024-12-16] MEDS: POTASSIUM CHLORIDE 10MEQ SR TABLET PO SCH (10:36)
[2024-12-16 12:05] VITALS: BP 139/63; TEMP 97.6; O2SAT 98
[2024-12-16] MEDS ORDERED: MOM 30 ML SUSPENSION UDC PO PRN (14:45)
[2024-12-16 16:36] VITALS: BP 154/67; TEMP 96.9; O2SAT 99
[2024-12-16 20:00] VITALS: BP 142/63; TEMP 97.7; O2SAT 98
[2024-12-16] MEDS: DOCUSATE SODIUM 100 MG CAPSULE PO SCH (20:20)
[2024-12-16] MEDS: SENNA 8.6 MG TAB PO SCH (20:20)
[2024-12-17 00:24] VITALS: BP 138/62; TEMP 97.2; O2SAT 97
[2024-12-17 04:15] VITALS: BP 148/65; TEMP 97; O2SAT 96
[2024-12-17] MEDS ORDERED: LEVO75TAB PO (06:59)
[2024-12-17] MEDS ORDERED: SENN18TA PO (06:59)
[2024-12-17] MEDS ORDERED: COLA100C5 PO (06:59)
[2024-12-17] MEDS: LACTULOSE 20 GM/30 ML SYRUP UDC PO ONE (08:00)
[2024-12-17 08:15] VITALS: BP 141/66; TEMP 97.6; O2SAT 96
[2024-12-17] MEDS ORDERED: LIDOCAINE 1% MDV 20 ML VIAL As Ordered ONE (08:19)
[2024-12-17 09:02] LABS: BASO # 0.0 10^3/uL (0.0-0.2); BASO % 1.1 % (0.0-1.0); EOS # 0.3 10^3/uL (0.0-0.5); EOS % 7.1 % (0.0-3.0); LYMPH # 0.4 10^3/uL (1.5-5.0); LYMPH % 10.5 % (24.0-44.0); MONO # 0.4 10^3/uL (0.0-0.8); MONO % 10.5 % (2.0-8.0); NEUTROPHILS # 2.5 10^3/uL (1.5-8.5); NEUTROPHILS % 70.2 % (36.0-66.0)
[2024-12-17 09:11] LABS: PLATELET COUNT, AUTOMATED 43 10^3/uL (150-450)
[2024-12-17 09:26] LABS: ALT/SGPT 160.0 U/L (7.0-40); AST/SGOT 240.0 U/L (<34); CALCIUM LEVEL 8.7 MG/DL (8.3-10.6); CARBON DIOXIDE LEVEL 22.0 MMOL/L (20-31); CHLORIDE LEVEL 106.0 MMOL/L (98-107); CREATININE FOR GFR 3.34 MG/DL (0.70-1.30); GLOMERULAR FILTRATION RATE 18.7 (>42); POTASSIUM SERUM 4.2 MMOL/L (3.5-5.1); SODIUM LEVEL 142.0 MMOL/L (136-145)
[2024-12-17 09:56] VITALS: BP 167/72; TEMP 97.6; O2SAT 96
[2024-12-17 10:17] VITALS: BP 149/65
[2024-12-17] MEDS ORDERED: LACTULOSE 20 GM/30 ML SYRUP UDC PO PRN (13:00)
[2024-12-19 19:07] LABS: PARVOVIRUS B19 SOURCE BLOOD
[2024-12-21 16:12] LABS: LYME TOTAL ANTIBODY CIA <= 0.90 Index (<=0.90)
== END 2024-12-17 12:25 | disposition home or self-care (01) | DRG 808 ==
LOC: M ED 19:19 → M ED INP 23:17 → M PCU 12-13 02:55
PROVIDERS: ADMIT Family Medicine; ATTEND Family Medicine
PROC: 30233R1 Transfusion of Nonautologous Platelets into Peripheral Vein, Percutaneous Approach (ICD-10-PCS; 2024-12-14)
PROC: B246ZZZ Ultrasonography of Right and Left Heart (ICD-10-PCS; 2024-12-14)
PROC: 07DR3ZX Extraction of Iliac Bone Marrow, Percutaneous Approach, Diagnostic (ICD-10-PCS; principal; 2024-12-17 09:00)
DX: D70.9 Neutropenia, unspecified (principal); J18.9 Pneumonia, unspecified organism; A41.9 Sepsis, unspecified organism; M62.82 Rhabdomyolysis; C90.01 Multiple myeloma in remission; Z94.84 Stem cells transplant status; N17.9 Acute kidney failure, unspecified; E87.1 Hypo-osmolality and hyponatremia; N18.4 Chronic kidney disease, stage 4 (severe); E87.20 Acidosis, unspecified; I12.9 Hypertensive chronic kidney disease with stage 1 through stage 4 chronic kidney disease, or unspecified chronic kidney disease; R29.6 Repeated falls; N28.9 Disorder of kidney and ureter, unspecified; E78.5 Hyperlipidemia, unspecified; D63.1 Anemia in chronic kidney disease; D69.6 Thrombocytopenia, unspecified; E87.6 Hypokalemia; R19.7 Diarrhea, unspecified; R33.9 Retention of urine, unspecified; D61.818 Other pancytopenia; N13.9 Obstructive and reflux uropathy, unspecified; Z79.82 Long term (current) use of aspirin; Z79.899 Other long term (current) drug therapy

== ENCOUNTER 2025-05-19 10:56 | Outpatient (CLI) | payer MEDICARE ==
[~2025-05-19] VITALS: Ht 172.7 cm; Wt 85.0 kg
[~2025-05-19 10:56] MED LIST changes: +COLA100C5 PO; +LEVO75TAB PO; +NS (Normal Saline) 0.9% 1,000 ML IV SCH; +SENN18TA PO; +VITA1TAB82 PO
[2025-05-19 11:00] VITALS: BP 146/70; O2SAT 97
[2025-05-19] MEDS: IMMUNE GLOBULIN 10% 40 GM in IV 1 EA IV ONE (11:20)
[2025-05-19] MEDS: ACETAMINOPHEN 650MG PO PRIOR TO INFUSION PO ONE (11:23)
[2025-05-19] MEDS: diphenhydrAMINE 25MG PO PRIOR TO INFUSION PO ONE (11:23)
[2025-05-19 13:00] VITALS: BP 112/55; O2SAT 96
[2025-05-19 13:30] VITALS: BP 113/58; O2SAT 97
[2025-05-19 14:00] VITALS: BP 115/60; O2SAT 98
[2025-05-19 15:30] VITALS: BP 145/65; O2SAT 98
== END 2025-05-19 15:30 | disposition home or self-care (01) ==
LOC: M INFU 10:56
PROVIDERS: ATTEND Specialist
DX: D80.1 Nonfamilial hypogammaglobulinemia (principal)
CPT/HCPCS: 96365; 96366; 96367; J1459; J2919